=== PATIENT | female | born 1965 | race African-American/Black ===

== ENCOUNTER 2016-10-26 15:55 | Emergency (ER) | payer SELFPAY ==
[~2016-10-26] VITALS: Ht 167.6 cm; Wt 98.4 kg
[~2016-10-26 15:55] MED LIST: METF10002 PO; PROVENTIL HFA6.7 GM IH
[2016-10-26 16:20] VITALS: BP 164/71
[2016-10-26] MEDS ORDERED: INSU100I13 SQ (16:35)
[2016-10-26] MEDS ORDERED: INSU100I17 SQ (16:35)
--- NOTE | 2016-10-26 16:35 | PHYS DOC ---
Past Medical History Past Medical History: Asthma, Depression, Diabetes-Type II Additional Past Medical Histor: gestational diabetes, obesity Past Surgical History: Tonsillectomy, Other Additional Past Surgical Histo: x5 Alcohol Use: Rarely Drug Use: None Adult General Chief Complaint Chief Complaint: HYPERGLYCEMIA HPI HPI Patient is a 50 year old female who presents to the ED complaining that her blood sugar is running high because she has run out of insulin. Patient has type 2 diabetes. She was hospitalized in July for hyperglycemia related to medication noncompliance. Her regimen was changed to an insulin regimen that she was more comfortable with and she was written prescriptions. She has not had any follow-up since that time and now does not have any insulin because she is out of refills. She was supposed to be taking Lantus 20 units at bedtime and she has been out of that for 3 days, also supposed to be taking NovoLog 10 units twice a day with breakfast and dinner and has been out of that for longer than 3 days. She just got insurance as of October 05 and so now she does plan to get a primary care doctor and hopes to keep better control of her diabetes. She works as a [employer] and does get her blood sugar checked regularly at work. If she is doing everything she is supposed to do, her blood sugar runs in the 160s nonfasting. She has no history of hypertension. Patient states today she does not have any specific complaints. She feels a little tired but otherwise has no symptoms. She really is just here requesting prescriptions for insulin until she is able to follow up with a new doctor. PCP none Review of Systems Review of Systems Constitutional: Denies fever; she gets cold easily Eyes: Denies change in visual acuity, redness, or eye pain [] HENT: Denies nasal congestion or sore throat [] Respiratory: Denies cough or shortness of breath [] Cardiovascular: Denies chest pain GI: Denies abdominal pain, nausea, vomiting, bloody stools or diarrhea [] : Denies dysuria or hematuria [] Musculoskeletal: Denies back pain or joint pain [] Integument: Denies rash or skin lesions [] Neurologic: Denies headache, focal weakness or sensory changes [] Allergies Allergies Allergies Coded Allergies Type Severity Reaction Last Updated Verified oxycodone Adverse Reaction Intermediate 12/06/15 No Physical Exam Physical Exam Constitutional: Well developed, well nourished, no acute distress, non-toxic appearance. Alert, mentating normally. HENT: Normocephalic, atraumatic, bilateral external ears normal, oropharynx moist, no oral exudates, nose normal. [] Eyes: conjunctiva normal, no discharge. [] Neck: Normal range of motion, no stridor. [] Cardiovascular:Heart rate regular rhythm, no murmur [] Lungs & Thorax: Bilateral breath sounds clear to auscultation [] Abdomen: Bowel sounds normal, soft, no tenderness, no masses, no pulsatile masses. [] Skin: Warm, dry, no erythema, no rash. [] Extremities: No tenderness, no cyanosis, no clubbing, ROM intact, no edema. [] Neurologic: Alert and oriented X 3, normal motor function, normal sensory function, no focal deficits noted. [] Current Patient Data Vital Signs Vital Signs Date Time Temp Pulse Resp B/P Pulse Ox O2 Delivery O2 Flow Rate FiO2 10/26/16 16:20 98.6 74 18 164/71 99 Room Air 98.6 Lab Values Laboratory Tests Test 10/26/16 16:16 Glucose (Fingerstick) 237mg/dL (70-99) H EKG EKG [] Radiology/Procedures Radiology/Procedures [] Course & Med Decision Making Course & Med Decision Making Pertinent Labs and Imaging studies reviewed. (See chart for details) Accu-Chek on arrival by ED nursing staff 237 50-year-old female who has run out of her insulin because she has no more refills comes to the ED requesting a prescription for insulin. The patient just got insurance on October 05. I talked to her about the importance of getting a primary care doctor and following up and we discussed strategies for doing that. I emphasized to her that she will not get refills from the emergency department and our policy is not to provide any lengthy prescriptions but under the circumstances are give her 30 days so she can get some follow-up arrangements made. Prescriptions for the patient's Lantus and NovoLog for 30 day supply of each. She does have testing materials at home. [] Dragon Disclaimer Dragon Disclaimer This electronic medical record was generated, in whole or in part, using a voice recognition dictation system. Departure Departure Impression: Primary Impression: Hyperglycemia Additional Impression: Noncompliance with medications Disposition: HOME, SELF-CARE Condition: STABLE Referrals: NO PCP (PCP) Patient Instructions: Type 2 Diabetes Mellitus, Adult, [id number] Additional Instructions: As we discussed, it is very important to find a primary care physician who you can work with to manage your diabetes. Tomorrow, call the number on your insurance card or visit the website to find some doctors who take your insurance. Call to make a new patient appointment, and if needed, see if you can get in for a quick appointment before then so you do not ran out of insulin. Keep an eye on your blood pressure for the next 1-2 weeks. Today your blood pressure was a little bit high, 164/71. Tell your new doctor what your blood pressure has been running. Drink plenty of fluids. Make sure you are going to eat right after taking your insulin. Scripts Insulin Aspart (Novolog Flexpen)100 Unit/1 Ml Insuln.pen10 Unit SQ BID 30 Days 10 units prior to meals twice a day Please dispense 30 day supply Prov:EDGARDO MCKINNEY MD 10/26/16 Insulin Glargine,Hum.rec.anlog (Lantus Solostar)100 Unit/1 Ml Insuln.pen20 Unit SQ QHS #15 ML Ref 0 Prov:EDGARDO MCKINNEY MD 10/26/16 Problem Qualifiers EDGARDO MCKINNEY MD Oct 26, 2016 16:35
== END 2016-10-26 16:45 | disposition home or self-care (01) ==
LOC: ER 15:55
DX: E11.65 Type 2 diabetes mellitus with hyperglycemia (principal); Z79.4 Long term (current) use of insulin; F32.9 Major depressive disorder, single episode, unspecified; Z91.14 Patient's other noncompliance with medication regimen; J45.909 Unspecified asthma, uncomplicated; E66.9 Obesity, unspecified; Z68.30 Body mass index [BMI] 30.0-30.9, adult; Z88.5 Allergy status to narcotic agent
CPT/HCPCS: 82947; 99283

== ENCOUNTER 2017-01-07 07:02 | Inpatient (IN) | payer SELFPAY ==
[~2017-01-07] VITALS: Ht 175.3 cm; Wt 110.7 kg
[~2017-01-07 07:02] MED LIST changes: +INSU100I13 SQ; +INSU100I17 SQ
[2017-01-07] MEDS ORDERED: PSEUDOEPHEDRINE ER 120 MG TABLET.ER. PO ONE (07:30)
--- NOTE | 2017-01-07 07:42 | PHYS DOC ---
Past Medical History Past Medical History: Asthma, Depression, Diabetes-Type II Additional Past Medical Histor: gestational diabetes, obesity Past Surgical History: , Tonsillectomy, Other Additional Past Surgical Histo: x5 Alcohol Use: Rarely Drug Use: None Adult General Chief Complaint Chief Complaint: DENTAL PROBLEM HPI HPI Patient is a 51 year old female presents to the emergency department with a history of being an insulin diabetic and asthma. Patient states that around 245 this morning she developed severe headache that goes from the basal part of her left skull to the frontal part of her head with frontal and maxillary sinus pressure with left eye blurriness. She also states that she is having left jaw pain and discomfort into the ear with chest tightness. She stated that she took ibuprofen at 245 with no relief of the pain or discomfort. She denies any shortness of air difficulty breathing,nausea or vomiting. Review of Systems Review of Systems Constitutional: Denies fever or chills [] Eyes: Denies change in visual acuity, redness, or eye pain [] HENT: nasal congestion denies sore throat [] Respiratory: Denies cough or shortness of breath [] Cardiovascular: No additional information not addressed in HPI [] GI: Denies abdominal pain, nausea, vomiting, bloody stools or diarrhea [] : Denies dysuria or hematuria [] Musculoskeletal: Denies back pain or joint pain [] Integument: Denies rash or skin lesions [] Neurologic: headache, denies focal weakness or sensory changes [] Current Medications Current Medications Current Medications Medications (Trade) Dose Ordered Sig/Juan Start Time Stop Time Status Last Admin Dose Admin Aspirin (Children'S Aspirin) 324 mg 1X ONCE 01/07/17 08:00 01/07/17 08:01 DC 01/07/17 08:26 324 MG Morphine Sulfate 2 mg PRN Q2HR PRN 01/07/17 09:00 01/08/17 08:59 Nitroglycerin (Nitrostat) 0.4 mg PRN Q5MIN PRN 01/07/17 09:00 01/08/17 08:59 UNV Ondansetron HCl (Zofran) 4 mg PRN Q8HRS PRN 01/07/17 09:00 01/08/17 08:59 Pseudoephedrine HCl (Sudafed 12-Hour) 120 mg 1X ONCE 01/07/17 07:30 01/07/17 07:32 DC 01/07/17 08:27 120 MG Allergies Allergies Allergies Coded Allergies Type Severity Reaction Last Updated Verified oxycodone Adverse Reaction Intermediate 12/06/15 No Physical Exam Physical Exam Constitutional: Well developed, well nourished, no acute distress, non-toxic appearance. [] HENT: Normocephalic, atraumatic, bilateral external ears normal, oropharynx moist, no oral exudates, nose normal. Bilateral TM normal, throat without erythema, drainage or exudate. Patient with left frontal, left maxillary sinus tenderness. Eyes: PERRLA, EOMI, conjunctiva normal, no discharge. [] Neck: Normal range of motion, no tenderness, supple, no stridor. [] Cardiovascular:Heart rate regular rhythm, no murmur [] Lungs & Thorax: Bilateral breath sounds clear to auscultation [] Abdomen: Bowel sounds normal, soft, no tenderness, no masses, no pulsatile masses. [] Skin: Warm, dry, no erythema, no rash. [] Back: No tenderness Extremities: No tenderness, no cyanosis, no clubbing, ROM intact, no edema. [] Neurologic: Alert and oriented X 3, normal motor function, normal sensory function, no focal deficits noted. Patient with cranial nerve II-XII intact. Psychologic: Affect normal, judgement normal, mood normal. [] Current Patient Data Vital Signs Vital Signs Date Time Temp Pulse Resp B/P Pulse Ox O2 Delivery O2 Flow Rate FiO2 01/07/17 07:12 97.9 82 18 166/80 98 Room Air 97.9 Lab Values Laboratory Tests Test 01/07/17 08:00 White Blood Count 4.9x10^3/uL (4.0-11.0) Red Blood Count 4.68x10^6/uL (3.50-5.40) Hemoglobin 12.2g/dL (12.0-15.5) Hematocrit 37.1% (36.0-47.0) Mean Corpuscular Volume 79fL (79-100) Mean Corpuscular Hemoglobin 26pg (25-35) Mean Corpuscular Hemoglobin Concent 33g/dL (31-37) Red Cell Distribution Width 14.4% (11.5-14.5) Platelet Count 300x10^3/uL (140-400) Neutrophils (%) (Auto) 46% (31-73) Lymphocytes (%) (Auto) 45% (24-48) Monocytes (%) (Auto) 5% (0-9) Eosinophils (%) (Auto) 2% (0-3) Basophils (%) (Auto) 1% (0-3) Neutrophils # (Auto) 2.2x10^3uL (1.8-7.7) Lymphocytes # (Auto) 2.2x10^3/uL (1.0-4.8) Monocytes # (Auto) 0.2x10^3/uL (0.0-1.1) Eosinophils # (Auto) 0.1x10^3/uL (0.0-0.7) Basophils # (Auto) 0.0x10^3/uL (0.0-0.2) Sodium Level 139mmol/L (136-145) Potassium Level 4.1mmol/L (3.5-5.1) Chloride Level 103mmol/L (98-107) Carbon Dioxide Level 25mmol/L (21-32) Anion Gap 11 (6-14) Blood Urea Nitrogen 11mg/dL (7-20) Creatinine 0.9mg/dL (0.6-1.0) Estimated GFR (Cockcroft-Gault) 80.5 BUN/Creatinine Ratio 12 (6-20) Glucose Level 233mg/dL (70-99) H Calcium Level 8.7mg/dL (8.5-10.1) Total Bilirubin 0.3mg/dL (0.2-1.0) Aspartate Amino Transferase (AST) 17U/L (15-37) Alanine Aminotransferase (ALT) 25U/L (14-59) Alkaline Phosphatase 81U/L (46-116) Troponin I Quantitative < 0.017ng/mL (0.000-0.055) Total Protein 7.4g/dL (6.4-8.2) Albumin 3.3g/dL (3.4-5.0) L Albumin/Globulin Ratio 0.8 (1.0-1.7) L Laboratory Tests 01/07/17 08:00 Laboratory Tests 01/07/17 08:00 EKG EKG EKG completed with HR of 72 with T wave conversions in aVL. No STEMI noted at this time per Dr Lopez.[] Radiology/Procedures Radiology/Procedures [facility] [address] [place] [address] IMAGING REPORT Signed PATIENT: NILA GAINES ACCOUNT: [id number] : 1965 LOCATION: ER AGE: 51 SEX: F EXAM STATUS: REG ER ORD. PHYSICIAN: MILAN TALAMANTES APRN REASON: chest pressure PROCEDURE: PORTABLE CHEST 1V Portable chest, 01/07/2017: History: Chest pain Comparison is made to a study from 07/31/2016. The heart size and pulmonary vascularity are normal. No pulmonary infiltrates are seen. There is no evidence of pleural fluid. Mild spurring is present in the spine. IMPRESSION: No acute cardiopulmonary abnormality is detected. DICTATED and SIGNED BY: FRANCES HIGHTOWER MD DATE: 01/07/17 0753 CC: MILAN TALAMANTES APRN; NO PCP; NON,STAFF ~ [][facility] [id number] [place] [address] IMAGING REPORT Signed PATIENT: NILA GAINES ACCOUNT: [id number] : 1965 LOCATION: ER AGE: 51 SEX: F EXAM STATUS: REG ER ORD. PHYSICIAN: MILAN TALAMANTES APRN REASON: left sided headache, blurred vision left eye PROCEDURE: CT HEAD WO CONTRAST CT of the head without contrast, 01/07/2017: History: Left-sided headache, blurred vision Comparison is made to a study from 11/20/2013. The ventricles are within normal limits in size. There is a cavum septum pellucidum et vergae which is a normal variant. There is no shift of the midline structures. There is no evidence of acute intracranial hemorrhage or mass effect. IMPRESSION: No acute intracranial abnormality is detected. PQRS Compliance Statement: One or more of the following individualized dose reduction techniques were utilized for this examination: 1. Automated exposure control 2. Adjustment of the mA and/or kV according to patient size 3. Use of iterative reconstruction technique DICTATED and SIGNED BY: FRANCES HIGHTOWER MD DATE: 01/07/17 0800 CC: MILAN TALAMANTES APRN; NO PCP; NON,STAFF ~ Course & Med Decision Making Course & Med Decision Making Pertinent Labs and Imaging studies reviewed. (See chart for details) Patient was provided with aspirin and Sudafed here in the emergency department. 08:45 patient was reevaluated she states that her head headache has decreased and her chest pressure is still there. Patient will be provided with nitroglycerin spoke with patient regards to admission into the hospital for further cardiac evaluation. Call was placed to the hospitalist for admission. [phone] Llanes and cardiology in regards to patient admission. Patient will be placed on Telemetry with repeat troponins ordered. [] Dragon Disclaimer Dragon Disclaimer This electronic medical record was generated, in whole or in part, using a voice recognition dictation system. Departure Departure Impression: Primary Impression: Chest pain Additional Impression: Sinusitis Admitting Physician: Other (Dr Llanes and [facility] cardiology) Condition: STABLE Referrals: NO PCP (PCP) Problem Qualifiers MILAN TALAMANTES APRN Jan 07, 2017 07:42
--- NOTE | 2017-01-07 07:56 | RAD ---
Portable chest, 01/07/2017: History: Chest pain Comparison is made to a study from 07/31/2016. The heart size and pulmonary vascularity are normal. No pulmonary infiltrates are seen. There is no evidence of pleural fluid. Mild spurring is present in the spine. IMPRESSION: No acute cardiopulmonary abnormality is detected.
[2017-01-07] MEDS ORDERED: ASPIRIN CHEWABLE 81 MG TABLET. PO ONE (08:00)
--- NOTE | 2017-01-07 08:04 | RAD ---
CT of the head without contrast, 01/07/2017: History: Left-sided headache, blurred vision Comparison is made to a study from 11/20/2013. The ventricles are within normal limits in size. There is a cavum septum pellucidum et vergae which is a normal variant. There is no shift of the midline structures. There is no evidence of acute intracranial hemorrhage or mass effect. IMPRESSION: No acute intracranial abnormality is detected. PQRS Compliance Statement: One or more of the following individualized dose reduction techniques were utilized for this examination: 1. Automated exposure control 2. Adjustment of the mA and/or kV according to patient size 3. Use of iterative reconstruction technique
[2017-01-07 08:20] LABS: BASO % 1 % (0-3); EOS % 2 % (0-3); HEMATOCRIT 37.1 % (36.0-47.0); HEMOGLOBIN 12.2 g/dL (12.0-15.5); LYMPH # 2.2 x10^3/uL (1.0-4.8); LYMPH % 45 % (24-48); MEAN CORPUSCULAR HEMOGLOBIN 26 pg (25-35); MEAN CORPUSCULAR HGB CONC 33 g/dL (31-37); MEAN CORPUSCULAR VOLUME 79 fL (79-100); MONO % 5 % (0-9); NEUT % 46 % (31-73); PLATELET COUNT 300 x10^3/uL (140-400); RED BLOOD COUNT 4.68 x10^6/uL (3.50-5.40); RED CELL DISTRIBUTION WIDTH 14.4 % (11.5-14.5); WHITE BLOOD COUNT 4.9 x10^3/uL (4.0-11.0)
[2017-01-07 08:35] LABS: CALCIUM 8.7 mg/dL (8.5-10.1); CREATININE 0.9 mg/dL (0.6-1.0); GFR 80.5; POTASSIUM 4.1 mmol/L (3.5-5.1)
[2017-01-07 08:39] LABS: ALBUMIN 3.3 g/dL (3.4-5.0); ALBUMIN/GLOBULIN RATIO 0.8 (1.0-1.7); TOTAL BILIRUBIN 0.3 mg/dL (0.2-1.0); TOTAL PROTEIN 7.4 g/dL (6.4-8.2)
[2017-01-07] MEDS ORDERED: ONDANSETRON PF 4 MG/2 ML VIAL. IV PRN ×2 (08:59→09:00)
[2017-01-07] MEDS ORDERED: MORPHINE SULFATE 2 MG/ML DISP.SYRIN. IV PRN (09:00)
[2017-01-07] MEDS ORDERED: ACETAMINOPHEN 500 MG TABLET PO PRN (09:00)
[2017-01-07] MEDS ORDERED: DEXTROSE 50% 25 GM / 50ML DISP.SYRIN. IV PRN (09:00)
[2017-01-07] MEDS ORDERED: NAPROXEN 500 MG TABLET PO SCH (09:00)
[2017-01-07] MEDS ORDERED: HYDROCODONE/APAP 5/325MG TABLET. PO PRN (09:00)
[2017-01-07] MEDS ORDERED: NITROGLYCERIN SUBLINGUAL 0.4 MG BOTTLE OF 25. SL PRN ×2 (09:00)
[2017-01-07] MEDS ORDERED: CETIRIZINE HCL 10 MG TABLET. PO SCH (09:00)
[2017-01-07] MEDS: INSULIN ASPART 300 UNITS/3 ML INSULN.PEN SQ SCH ×2 (12:00→17:22)
--- NOTE | 2017-01-07 12:49 | PDOC ---
Provider Note Provider Note H and P dictated. OBS # [id number] CP r/o ACS Sinus headache Obesity Dm 2 non compliant - restart hoem emd, add Metformin 500 BID - can check hgba1c, cycel CE, H2 anatg for headache, NSAId prn, cards consult TIERNEY PERES MD Jan 07, 2017 12:49
[2017-01-07 12:54] VITALS: BP 154/72
[2017-01-07] MEDS ORDERED: NICOTINE 21MG PATCH. TD PRN (13:00)
--- NOTE | 2017-01-07 13:21 | HP ---
ADMIT DATE: 01/07/2017 CHIEF COMPLAINT: Chest tightness and headache. HISTORY OF PRESENT ILLNESS: The patient is a 51-year-old obese -[place] female with history of diabetes, noncompliance, supposed to be on insulin and also was recently taken out of metformin just because she was told that her sugars are high and insulin is the one that is needed, comes in because of headache and chest tightness. Chest tightness, she describes intermittent on the left side to midsternum, no radiation, no associated diaphoresis. No shortness of breath, no lightheadedness, dizziness or any other presyncopal symptoms. She does also complain of history of headache, left basal skull up to the frontal sinus area, claims she always has runny nose. No known drug allergies. The patient admitted because of troponin of less than 0.017. EKG of inverted T waves in AVL and also history of diabetes, which is noncompliant and rather uncontrolled. She does not know her hemoglobin A1c. She has not been taking her insulin. Blood sugars otherwise sounds like okay at the Emergency Room level. CT head negative. Chest x-ray looks okay. Lab work is otherwise unremarkable. PAST MEDICAL HISTORY: Diabetes type 2, on insulin; previously on metformin, taken off because was told blood sugars are too high for oral hypoglycemics. PAST SURGICAL HISTORY: Caesarian section. ALLERGIES: None. SOCIAL HISTORY: Smoker, less than a pack a day. No alcohol, no street drugs. FAMILY HISTORY: Adopted, so she does not know. REVIEW OF SYSTEMS: Positive for headache, sinus congestion, runny nose. Chest pain as above. No SOA. All else otherwise negative. PHYSICAL EXAMINATION: GENERAL: Awake, alert and oriented x 3, not in acute respiratory distress. HEENT: Unremarkable. LUNGS: Clear to auscultation bilaterally. CARDIOVASCULAR: Normal rate and rhythm. No murmurs, rubs or gallops. ABDOMEN: Soft, obese, nontender, normoactive bowel sounds. GENITALIA: Appropriate for age. EXTREMITIES: Negative edema. Pulses full and equal. No pallor or cyanosis of nailbeds. PSYCH and NEURO: UR ASSESSMENT AND PLAN: 1. Chest pain, rule out acute coronary syndrome. 2. Sinus headache. 3. Obesity. 4. Diabetes type 2, uncontrolled on insulin. PLAN OF CARE: 1. Sliding scale insulin, resume home meds. I did discuss with her restarting metformin because metformin is a rather cheap and good drug, and she does not have an insurance and this can still low her hemoglobin A1c and she agrees. She is not alcoholic, no history of kidney problems, creatinine is okay. Hence metformin would be a good drug for her. 2. Obesity. 3. EKG, inverted T-waves in AVL as per #1. 4. Restart insulin, check hemoglobin A1c, serial cardiac enzymes, consult Cardiology, lifestyle modification, restart metformin, seen at the Emergency Room. TIERNEY PERES MD DR: /nts JOB#: [id number] / [id number] KATHERYN
--- NOTE | 2017-01-07 15:17 | EKG ---
[facility] [address] [place] [address] Test Date: 2017-01-07 Test Time: 07:27:15 Pat Name: NILA GAINES Department: Room: Gender: F Icu Registered Nurse: : 1965 Requested By: MILAN TALAMANTES Order Number: [id number] Reading MD: Measurements Intervals [place] Rate: 72 P: 28 DC: 140 QRS: 9 QRSD: 76 T: 92 QT: 372 QTc: 409 Interpretive Statements SINUS RHYTHM T ABNORMALITY IN HIGH LATERAL LEADS ABNORMAL ECG RI6.01 No previous ECG available for comparison
--- NOTE | 2017-01-07 16:02 | CARD ---
APPROVED REPORT EXAM: Two-dimensional and M-mode echocardiogram with Doppler and color Doppler. Other Information Quality : GoodHR: 77bpm Rhythm : NSR INDICATION Chest Pain 2D DIMENSIONS RVDd3.2 (2.9-3.5cm)Left Atrium(2D)2.8 (1.6-4.0cm) IVSd0.8 (0.7-1.1cm)Aortic Root(2D)2.8 (2.0-3.7cm) LVDd4.6 (3.9-5.9cm)LVOT Diameter2.1 (1.8-2.4cm) PWd0.9 (0.7-1.1cm)LVDs3.2 (2.5-4.0cm) FS (%) 30.4 %SV55.1 ml LVEF(%)57.9 (>50%) Aortic Valve AoV Peak Carter.146.7cm/sAoV VTI29.4cm AO Peak GR.8.6mmHgLVOT Peak Carter.103.4cm/s LVOT VTI 23.31cmAO Mean GR.5mmHg KAROLYN (VMAX)2.96pz8MJV (VTI)2.77cm2 Mitral Valve MV E Wcyhxwop74.6cm/sMV DECEL SPDJ480yo MV A Wtkfcevs49.4cm/sMV E Mean Gr.2mmHg MV SAH29jkU/A Ratio1.0 MV A Wxefjqeb18lrKXV (PHT)4.47cm2 TDI E/Lateral E'9.6E/Medial E'14.6 Pulmonary Valve PV Peak Wfzqqrtt06.1cm/sPV Peak Grad.4mmHg RVOT VTI11.8cm Tricuspid Valve TR P. Rlwtrzua421fn/sRAP NUJONRBD0xgYq TR Peak Gr.78frWuNVSH39rhTw Pulmonary Vein S1 Obtpmbrc63.8cm/sD2 Nhvmrfju63.0cm/s PVa fgcpioxz70hqty LEFT VENTRICLE The left ventricle is normal size. There is normal left ventricular wall thickness. Left ventricle sy stolic function is normal. The Ejection Fraction is 55-60%. There is normal LV segmental wall motion. The left ventricular diastolic function and filling is normal for age. There is no ventricular septa l defect visualized. RIGHT VENTRICLE The right ventricle is normal size. The right ventricular systolic function is normal. ATRIA The left atrium size is normal. The right atrium size is normal. The interatrial septum is intact wit h no evidence for an atrial septal defect or patent foramen ovale as noted on 2-D or Doppler imaging. AORTIC VALVE The aortic valve is normal in structure and function. The aortic valve is trileaflet. Doppler and Col or Flow revealed no significant aortic regurgitation. There is no significant aortic valvular stenosi s. MITRAL VALVE The mitral valve is normal in structure and function. There is no evidence of mitral valve prolapse. There is no mitral valve stenosis. Doppler and Color Flow revealed trace mitral regurgitation. TRICUSPID VALVE The tricuspid valve is normal in structure. Doppler and Color Flow revealed mild tricuspid regurgitat ion.There is mild pulmonary hypertension.The PA pressure was estimated at 40 mmHg. There is no tricus pid valve stenosis. PULMONIC VALVE Doppler and Color Flow revealed no pulmonic valvular regurgitation. There is no pulmonic valvular oralia nosis. GREAT VESSELS The aortic root is normal in size. The ascending aorta is normal in size. The IVC is normal in size a nd collapses >50% with inspiration. PERICARDIAL EFFUSION There is no pleural effusion. There is no evidence of significant pericardial effusion. Critical Notification Critical Value: No <Conclusion> Left ventricle systolic function is normal. The Ejection Fraction is 55-60%. There is normal LV segmental wall motion. Doppler and Color Flow revealed mild tricuspid regurgitation.There is mild pulmonary hypertension.The PA pressure was estimated at 40 mmHg.
[2017-01-07] MEDS ORDERED: METF500T4 PO (16:36)
--- NOTE | 2017-01-07 16:39 | PDOC3 ---
Discharge Summary Visit Information Date of Admission: Jan 07, 2017 Date of Discharge: Jan 07, 2017 Admitting Diagnosis Comment: ASSESSMENT AND PLAN: 1. Chest pain, rule out acute coronary syndrome. 2. Sinus headache. 3. Obesity. 4. Diabetes type 2, uncontrolled on insulin. Final Diagnosis Problems Medical Problems: (1) Chest pain Status: Acute (2) Sinusitis Status: Acute Brief Hospital Course Allergies Allergies Coded Allergies Type Severity Reaction Last Updated Verified oxycodone Adverse Reaction Intermediate 12/06/15 No Vital Signs Vital Signs Date Time Temp Pulse Resp B/P Pulse Ox O2 Delivery O2 Flow Rate FiO2 01/07/17 15:29 16 Room Air 01/07/17 12:54 98.0 73 154/72 99 98.0 Lab Results Laboratory Tests Test 01/07/17 08:00 01/07/17 15:10 White Blood Count 4.9x10^3/uL (4.0-11.0) Red Blood Count 4.68x10^6/uL (3.50-5.40) Hemoglobin 12.2g/dL (12.0-15.5) Hematocrit 37.1% (36.0-47.0) Mean Corpuscular Volume 79fL (79-100) Mean Corpuscular Hemoglobin 26pg (25-35) Mean Corpuscular Hemoglobin Concent 33g/dL (31-37) Red Cell Distribution Width 14.4% (11.5-14.5) Platelet Count 300x10^3/uL (140-400) Neutrophils (%) (Auto) 46% (31-73) Lymphocytes (%) (Auto) 45% (24-48) Monocytes (%) (Auto) 5% (0-9) Eosinophils (%) (Auto) 2% (0-3) Basophils (%) (Auto) 1% (0-3) Neutrophils # (Auto) 2.2x10^3uL (1.8-7.7) Lymphocytes # (Auto) 2.2x10^3/uL (1.0-4.8) Monocytes # (Auto) 0.2x10^3/uL (0.0-1.1) Eosinophils # (Auto) 0.1x10^3/uL (0.0-0.7) Basophils # (Auto) 0.0x10^3/uL (0.0-0.2) Sodium Level 139mmol/L (136-145) Potassium Level 4.1mmol/L (3.5-5.1) Chloride Level 103mmol/L (98-107) Carbon Dioxide Level 25mmol/L (21-32) Anion Gap 11 (6-14) Blood Urea Nitrogen 11mg/dL (7-20) Creatinine 0.9mg/dL (0.6-1.0) Estimated GFR (Cockcroft-Gault) 80.5 BUN/Creatinine Ratio 12 (6-20) Glucose Level 233mg/dL (70-99) Calcium Level 8.7mg/dL (8.5-10.1) Total Bilirubin 0.3mg/dL (0.2-1.0) Aspartate Amino Transf (AST/SGOT) 17U/L (15-37) Alanine Aminotransferase (ALT/SGPT) 25U/L (14-59) Alkaline Phosphatase 81U/L (46-116) Troponin I Quantitative < 0.017ng/mL (0.000-0.055) < 0.017ng/mL (0.000-0.055) Total Protein 7.4g/dL (6.4-8.2) Albumin 3.3g/dL (3.4-5.0) Albumin/Globulin Ratio 0.8 (1.0-1.7) Laboratory Tests Test 01/07/17 08:00 01/07/17 15:10 White Blood Count 4.9x10^3/uL (4.0-11.0) Red Blood Count 4.68x10^6/uL (3.50-5.40) Hemoglobin 12.2g/dL (12.0-15.5) Hematocrit 37.1% (36.0-47.0) Mean Corpuscular Volume 79fL (79-100) Mean Corpuscular Hemoglobin 26pg (25-35) Mean Corpuscular Hemoglobin Concent 33g/dL (31-37) Red Cell Distribution Width 14.4% (11.5-14.5) Platelet Count 300x10^3/uL (140-400) Neutrophils (%) (Auto) 46% (31-73) Lymphocytes (%) (Auto) 45% (24-48) Monocytes (%) (Auto) 5% (0-9) Eosinophils (%) (Auto) 2% (0-3) Basophils (%) (Auto) 1% (0-3) Neutrophils # (Auto) 2.2x10^3uL (1.8-7.7) Lymphocytes # (Auto) 2.2x10^3/uL (1.0-4.8) Monocytes # (Auto) 0.2x10^3/uL (0.0-1.1) Eosinophils # (Auto) 0.1x10^3/uL (0.0-0.7) Basophils # (Auto) 0.0x10^3/uL (0.0-0.2) Sodium Level 139mmol/L (136-145) Potassium Level 4.1mmol/L (3.5-5.1) Chloride Level 103mmol/L (98-107) Carbon Dioxide Level 25mmol/L (21-32) Anion Gap 11 (6-14) Blood Urea Nitrogen 11mg/dL (7-20) Creatinine 0.9mg/dL (0.6-1.0) Estimated GFR (Cockcroft-Gault) 80.5 BUN/Creatinine Ratio 12 (6-20) Glucose Level 233mg/dL (70-99) Calcium Level 8.7mg/dL (8.5-10.1) Total Bilirubin 0.3mg/dL (0.2-1.0) Aspartate Amino Transf (AST/SGOT) 17U/L (15-37) Alanine Aminotransferase (ALT/SGPT) 25U/L (14-59) Alkaline Phosphatase 81U/L (46-116) Troponin I Quantitative < 0.017ng/mL (0.000-0.055) < 0.017ng/mL (0.000-0.055) Total Protein 7.4g/dL (6.4-8.2) Albumin 3.3g/dL (3.4-5.0) Albumin/Globulin Ratio 0.8 (1.0-1.7) Brief Hospital Course Ms. Escobedo is a 51 old obese AA female, admitted for CP, low risk, DM 2 on insulin, non complaint BS high, unknown hgba1c, Cleared from cards to go home, Emphasized compliance on DM meds. Hopefully she will comply, \Pt sen and examined at ER Dw RN Dw pt DispO; Home Meds: metformin 500 BID - no CI for this cheap drug which she can take more ( comply more ) rather than expensive insulin Consults: cards Proc: none Discharge Information Condition at Discharge: Improved, Stable Disposition/Orders: D/C to Home Scheduled Insulin Aspart (Novolog Flexpen) 10 UNIT SQ BID Insulin Glargine,Hum.rec.anlog (Lantus Solostar) 20 UNIT SQ QHS TIERNEY PERES MD Jan 07, 2017 16:39
[2017-01-07] MEDS ORDERED: METFORMIN 500 MG TABLET. PO SCH (17:00)
[2017-01-07] MEDS ORDERED: INSULIN ASPART 300 UNITS/3 ML INSULN.PEN SQ SCH (17:00)
--- NOTE | 2017-01-07 18:17 | PDOC ---
Provider Note Provider Note Pt. seen and examined. 51 y.o with diabetes. presenting with non-cardiac symptoms. Trop neg x 2. Given her dyspnea history, echo performed and this was normal. patient has our office info and if she has any significant issues will call and can consider outpt ischemic testing. thanks for consult. full note dictated. RENATA WOODALL MD Jan 07, 2017 18:17
[2017-01-07] MEDS ORDERED: INSULIN DETEMIR 300 UNITS/3 ML INSULN.PEN. SQ SCH (21:00)
--- NOTE | 2017-01-08 04:26 | CONS ---
DATE OF CONSULTATION: 01/07/2017 This is a Cardiology consultation. CHIEF COMPLAINT: Chest pain. HISTORY OF PRESENT ILLNESS: This is a 51-year-old -[place] female who awakened at approximately 2:00 a.m. today with pain in the left side of her face, then radiated to the back of her head. She subsequently developed a chest tightness in the center of her chest with radiation into the left arm as well as back into the left scapular region. She took ibuprofen at that time this occurred and went back to sleep and subsequently awakened with left eye blurriness. She then presented to the Emergency Room. On further questioning, she admits that she has had chest pain for approximately two months intermittently, but has not discussed this with her primary care provider. She does report being evaluated for similar pain last year with a stress test, which was reported as normal as well as an echocardiogram also reported as normal. At the time she had her symptoms last fall, her blood sugars were greater than 600. Pain this morning was simply described as a tightness and possibly associated with dizziness, but no other symptoms. Unfortunately, at this time, neither her labwork, chest x-ray nor EKG can be reviewed as the computer system is down. PAST MEDICAL HISTORY: Includes diabetes mellitus, remote history of seizure, asthma, frequent urinary tract infection, osteoarthritis in her hands, anxiety and depression. PAST SURGICAL HISTORY: Includes x SOCIAL HISTORY: Includes tobacco use of approximately half a pack per day of cigarettes, which has decreased recently. She previously smoked as much as 3 packs per day. Alcohol and illicit drug use is denied. FAMILY MEDICAL HISTORY: Positive for coronary artery disease, diabetes mellitus and peripheral vascular disease. REVIEW OF SYSTEMS: A 14-point review is completed with pertinent positives in the HPI. The patient also complains of recent allergic rhinitis and a possible near syncopal episode approximately 2 weeks ago. DIAGNOSTIC STUDIES: Unable to review. LABORATORY STUDIES: Unable to review. PHYSICAL EXAMINATION: VITAL SIGNS: Please refer to the computerized chart. GENERAL: Well-developed, well-nourished female in no acute distress or pain, lying in bed. CENTRAL NERVOUS SYSTEM: The patient is awake, alert and oriented, without focal neurological deficits noted, not walked for this examination. HEENT: Head is normocephalic, atraumatic. Pupils reactive to light. Tongue is midline. Mucosa moist. NECK: Supple. No jugular venous distention appreciated. No cervical adenopathy appreciated. The patient with a short neck. PULMONARY: Breath sounds clear to auscultation bilaterally without use of intercostal muscles present. CARDIOVASCULAR: S1, S2 are present. No S3 auscultated. No S4 auscultated. No carotid bruits auscultated. The pain is reproducible with palpation of the upper and mid sternum. ABDOMEN: Soft and nontender. Truncal obesity is present. SKIN: Warm, dry and intact. Affect is appropriate. EXTREMITIES: Distal pulses are palpable. No lower extremity edema present. IMPRESSION: 1. Chest pain, noncardiac, likely costochondritis. 2. Diabetes mellitus type 2, poorly controlled. 3. Asthma. 4. Remote history of seizures. PLAN: Pls see provider note. RENATA WOODALL MD DR: JERSEY/wolf JOB#: [id number] / [id number] KATHERYN
== END 2017-01-07 18:23 | disposition home or self-care (01) | DRG 206 ==
LOC: ER 07:02 → 2 NORTH 08:51
PROVIDERS: ADMIT Internal Medicine; ATTEND Internal Medicine
DX: M94.0 Chondrocostal junction syndrome [Tietze] (principal); R07.89 Other chest pain; E66.9 Obesity, unspecified; F17.210 Nicotine dependence, cigarettes, uncomplicated; J45.909 Unspecified asthma, uncomplicated; M19.041 Primary osteoarthritis, right hand; M19.042 Primary osteoarthritis, left hand; E11.65 Type 2 diabetes mellitus with hyperglycemia; J32.9 Chronic sinusitis, unspecified; F32.9 Major depressive disorder, single episode, unspecified; Z98.890 Other specified postprocedural states; Z79.4 Long term (current) use of insulin; Z86.32 Personal history of gestational diabetes; Z91.19 Patient's noncompliance with other medical treatment and regimen; Z82.49 Family history of ischemic heart disease and other diseases of the circulatory system; Z84.89 Family history of other specified conditions; R51 Headache
CPT/HCPCS: 36415; 36569; 70450; 71010; 80053; 82947; 83036; 84484; 85027; 93005; 93306; J1815; 99285-25

== ENCOUNTER 2017-06-10 12:27 | Emergency (ER) | payer BC ==
[~2017-06-10] VITALS: Ht 165.1 cm; Wt 103.9 kg
[~2017-06-10 12:27] MED LIST changes: +METF-620 PO; -METF10002 PO; +METF500T4 PO
[2017-06-10 13:20] VITALS: BP 181/72
[2017-06-10] MEDS ORDERED: AMOX500C PO (13:47)
--- NOTE | 2017-06-10 13:47 | PHYS DOC ---
Past Medical History Past Medical History: Asthma, Depression, Diabetes-Type II, Other Additional Past Medical Histor: gestational diabetes, obesity Past Surgical History: , Tonsillectomy, Other Additional Past Surgical Histo: x5 Alcohol Use: None Drug Use: None Adult General Chief Complaint Chief Complaint: DENTAL PROBLEM [facility] HPI Patient is a 51 year old female presents to the emergency department stating that she has having left maxillary sinus tenderness. She is also stating that she has having tenderness in the upper left dental areas. Patient states that she's had some nasal congestion as well. She denies fever, chills or any nausea or vomiting. She denies foul taste. Patient states she's been taken ibuprofen for the pain and discomfort with some relief noted. She states her last dose of ibuprofen was at 9:30 this morning. Patient's blood pressure is slightly elevated however her heart rate is normal. Review of Systems Review of Systems Constitutional: Denies fever or chills [] Eyes: Denies change in visual acuity, redness, or eye pain [] HENT: nasal congestion denies sore throat. Complaint of dental pain Respiratory: Denies cough or shortness of breath [] Cardiovascular: No additional information not addressed in HPI [] GI: Denies abdominal pain, nausea, vomiting, bloody stools or diarrhea [] : Denies dysuria or hematuria [] Musculoskeletal: Denies back pain or joint pain [] Integument: Denies rash or skin lesions [] Neurologic: Denies headache, focal weakness or sensory changes [] Endocrine: Denies polyuria or polydipsia [] Allergies Allergies Allergies Coded Allergies Type Severity Reaction Last Updated Verified oxycodone Adverse Reaction Intermediate 12/06/15 No Physical Exam Physical Exam Constitutional: Well developed, well nourished, no acute distress, non-toxic appearance. [] HENT: Normocephalic, atraumatic, bilateral external ears normal, oropharynx moist, no oral exudates, nose normal. Bilateral tympanic membranes appear to be normal however patient did have tenderness noted when observing the left tympanic membrane. Patient with left maxillary sinus tenderness noted. Patient with dental discomfort on the left upper areas. No dental abscess noted. Eyes: PERRLA, EOMI, conjunctiva normal, no discharge. [] Neck: Normal range of motion, no tenderness, supple, no stridor. [] Cardiovascular:Heart rate regular rhythm, no murmur [] Lungs & Thorax: Bilateral breath sounds clear to auscultation []. [] Skin: Warm, dry, no erythema, no rash. [] Back: No tenderness Extremities: No tenderness, no cyanosis, no clubbing, ROM intact, no edema. [] Neurologic: Alert and oriented X 3, normal motor function, normal sensory function, no focal deficits noted. [] Psychologic: Affect normal, judgement normal, mood normal. [] Current Patient Data Vital Signs Vital Signs Date Time Temp Pulse Resp B/P (MAP) Pulse Ox O2 Delivery O2 Flow Rate FiO2 06/10/17 13:20 98.1 90 16 99 Room Air 98.1 EKG EKG [] Radiology/Procedures Radiology/Procedures [] Course & Med Decision Making Course & Med Decision Making Pertinent Labs and Imaging studies reviewed. (See chart for details) Patient will be placed on amoxicillin 500 mg 1 tablet 4 times a day. Recommended following up with primary care physician in the next week. Also recommended to the patient to use nasal saline sprays to help with congestion. Also recommended Coricidin HBP for sinus congestion. Patient was also encouraged drink plenty of fluids. Patient will be discharged home in stable condition signs and symptoms to return back to emergency department as been provided. Patient agrees with discharge instructions treatment regimens and follow-up recommendations. All questions and concerns been answered at patient' s bedside. [] Dragon Disclaimer Dragon Disclaimer This electronic medical record was generated, in whole or in part, using a voice recognition dictation system. Departure Departure Impression: Primary Impression: Sinusitis Disposition: HOME, SELF-CARE Condition: STABLE Referrals: NO PCP (PCP) Patient Instructions: Sinusitis, [id number] Additional Instructions: Activity as tolerated. Coricidin BPH for sinus congestion. Tylenol or ibuprofen for fever chills or generalized body aches and discomfort. Drink plenty of fluids. Follow-up with a primary care physician in the next 5-7 days. Return back to emergency prior signs symptoms become worse. Scripts Amoxicillin (AMOXICILLIN) 500 Mg Capsule 1 CAP PO QID, #40 CAP Prov: MILAN TALAMANTES ACADEMIC COUNSELOR 06/10/17 Problem Qualifiers Primary Impression: Sinusitis Sinusitis location: maxillary Chronicity: acute Recurrence: recurrent Qualified Codes: J01.01 - Acute recurrent maxillary sinusitis MILAN TALAMANTES ACADEMIC COUNSELOR Jun 10, 2017 13:47
[2017-06-10] MEDS ORDERED: ACETAMINOPHEN 325 MG TABLET. PO ONE (14:00)
== END 2017-06-10 14:16 | disposition home or self-care (01) ==
LOC: ER 12:27
DX: J01.01 Acute recurrent maxillary sinusitis (principal); J45.909 Unspecified asthma, uncomplicated; F32.9 Major depressive disorder, single episode, unspecified; E11.9 Type 2 diabetes mellitus without complications; E66.9 Obesity, unspecified; Z88.5 Allergy status to narcotic agent; Z68.38 Body mass index [BMI] 38.0-38.9, adult
CPT/HCPCS: 99283

== ENCOUNTER 2017-07-02 00:54 | Inpatient (IN) | payer BC ==
[~2017-07-02] VITALS: Ht 167.6 cm; Wt 109.1 kg
[~2017-07-02 00:54] MED LIST changes: +AMOX500C PO
[2017-07-02 01:19] LABS: BASO % 1 % (0-3); EOS % 2 % (0-3); HEMATOCRIT 34.4 % (36.0-47.0); HEMOGLOBIN 11.6 g/dL (12.0-15.5); LYMPH # 2.2 x10^3/uL (1.0-4.8); LYMPH % 46 % (24-48); MEAN CORPUSCULAR HEMOGLOBIN 27 pg (25-35); MEAN CORPUSCULAR HGB CONC 34 g/dL (31-37); MEAN CORPUSCULAR VOLUME 80 fL (79-100); MONO % 5 % (0-9); NEUT % 46 % (31-73); PLATELET COUNT 273 x10^3/uL (140-400); RED BLOOD COUNT 4.29 x10^6/uL (3.50-5.40); RED CELL DISTRIBUTION WIDTH 13.9 % (11.5-14.5); WHITE BLOOD COUNT 4.9 x10^3/uL (4.0-11.0)
[2017-07-02 01:28] LABS: INR 0.9 (0.8-1.1)
[2017-07-02 01:32] LABS: CALCIUM 8.7 mg/dL (8.5-10.1); GFR 71.3; POTASSIUM 4.1 mmol/L (3.5-5.1)
[2017-07-02 01:37] LABS: MAGNESIUM 1.8 mg/dL (1.8-2.4)
[2017-07-02 01:45] LABS: CKMB MASS 1.6 ng/mL (0.0-3.6)
[2017-07-02] MEDS ORDERED: CONTRAST GIVEN MC PRN (02:15)
[2017-07-02] MEDS ORDERED: IOHEXOL 300 MG/ML 75 ML VIAL IV ONE (02:30)
[2017-07-02] MEDS ORDERED: ONDANSETRON PF 4 MG/2 ML VIAL. IV ONE (02:30)
[2017-07-02] MEDS ORDERED: MORPHINE SULFATE 2 MG/ML DISP.SYRIN. IV ONE (02:30)
--- NOTE | 2017-07-02 02:58 | RAD ---
INDICATION: left side chest pain, shortness of breath, abdomen pain COMPARISON: None. TECHNIQUE: Axial CT images were obtained through the chest, abdomen and pelvis with intravenous contrast. Three-dimensional images processed of chest per angiogram protocol. One or more of the following individualized dose reduction techniques were utilized for this examination: 1. Automated exposure control; 2. Adjustment of the mA and/or kV according to patient size; 3. Use of iterative reconstruction technique. FINDINGS: Chest: No evidence of pneumothorax. No focal airspace consolidation to suggest pneumonia. Calcific atherosclerosis without thoracic aortic aneurysm. Ascending thoracic aorta largely obscured by motion. No dissection flap in the visualized portions of the aorta. Coronary artery calcific atherosclerosis is identified. Degenerative changes of spine. No embolus in main, right main or left main pulmonary artery. Peripheral evaluation is very limited secondary to patient motion and contrast bolus timing. There are some prominent lymph nodes in the bilateral axilla which appear mildly enlarged measuring up to about 11 mm short axis. Abdomen and pelvis: Calcific atherosclerosis without abdominal aortic aneurysm. Low-attenuation throughout liver. No definite peripancreatic edema. Spleen unremarkable. No hydronephrosis. Bladder is partially distended. Uterus is visualized. Small fat-containing umbilical hernia. The suspected appendix is partially seen and does not appear grossly inflamed. No dilated loops of bowel to suggest obstruction. Degenerative changes spine. IMPRESSION: 1. No evidence of embolus in the main, right main or left main pulmonary artery. More peripheral evaluation is highly limited secondary to contrast bolus timing and motion. 2. No focal airspace consolidation to suggest pneumonia. 3. Coronary artery calcific atherosclerosis is identified. 4. No evidence of bowel obstruction or appendicitis. 5. Low attenuation of the liver. Nonspecific but frequently secondary to fatty infiltration. Electronically signed by: Luis A Perkins MD (07/02/2017 2:55 AM) [facility]
--- NOTE | 2017-07-02 03:04 | PHYS DOC ---
Past Medical History Past Medical History: Asthma, Depression, Diabetes-Type II, Other Additional Past Medical Histor: gestational diabetes, obesity Past Surgical History: , Tonsillectomy, Other Additional Past Surgical Histo: x5 Smoking: Cigarettes Alcohol Use: None Drug Use: None Adult General Chief Complaint Chief Complaint: CHEST PAIN HPI HPI Patient is a 51 year old female who presents with chest pain. She awakened at 0055 AM with chest pain. Chest pain is epigastric. Radiates more to the right side. She has diabetes mellitus but has been out of her medications 4 weeks. She is adopted unknown family history. She does continue to smoke tobacco. Unknown cholesterol status. This pain was severe. It is persistent. No nausea vomiting. Some shortness of air. No abdominal complaints. No leg pain or swelling. No travel. Review of Systems Review of Systems Constitutional: Denies fever or chills Eyes: Denies change in visual acuity, redness, or eye pain HENT: Denies nasal congestion or sore throat Respiratory: Denies cough; some shortness of breath Cardiovascular: POS chest pain. GI: Denies abdominal pain, nausea, vomiting, bloody stools or diarrhea : Denies dysuria or hematuria Musculoskeletal: Denies back pain or joint pain Integument: Denies rash or skin lesions Neurologic: Denies headache, focal weakness or sensory changes Current Medications Current Medications Current Medications Medications (Trade) Dose Ordered Sig/Juan Start Time Stop Time Status Last Admin Dose Admin Info (Do NOT chart on this entry -- for MONITORING) 1 each PRN DAILY PRN 07/02/17 02:15 07/04/17 02:14 Iohexol (Omnipaque 300 Mg/ml) 75 ml 1X ONCE 07/02/17 02:30 07/02/17 02:31 DC 07/02/17 02:14 75 ML Morphine Sulfate 2 mg 1X ONCE 07/02/17 02:30 07/02/17 02:31 DC 07/02/17 02:36 2 MG Ondansetron HCl (Zofran) 4 mg 1X ONCE 07/02/17 02:30 07/02/17 02:31 DC 07/02/17 02:35 4 MG Allergies Allergies Allergies Coded Allergies Type Severity Reaction Last Updated Verified oxycodone Adverse Reaction Intermediate 12/06/15 No Physical Exam Physical Exam Constitutional: Well developed, well nourished, obese female no acute distress, non-toxic appearance. HENT: Normocephalic, atraumatic, bilateral external ears normal, oropharynx moist, no oral exudates, nose normal. Eyes: PERRLA, EOMI, conjunctiva normal, no discharge. Neck: Normal range of motion, no tenderness, supple, no stridor. Cardiovascular:Heart rate regular rhythm, no murmur Lungs & Thorax: Bilateral breath sounds clear to auscultation Abdomen: Bowel sounds normal, soft, no tenderness, no masses, no pulsatile masses. Skin: Warm, dry, no erythema, no rash. Back: No tenderness, no CVA tenderness. Extremities: No tenderness, no cyanosis, no clubbing, ROM intact, no edema. Neurologic: Alert and oriented X 3, normal motor function, normal sensory function, no focal deficits noted. Psychologic: Affect normal, judgement normal, mood normal. Current Patient Data Vital Signs Vital Signs Date Time Temp Pulse Resp B/P (MAP) Pulse Ox O2 Delivery O2 Flow Rate FiO2 07/02/17 02:36 73 20 220/84 (129) 100 Room Air 07/02/17 00:59 98.7 98.7 Lab Values Laboratory Tests Test 07/02/17 01:10 White Blood Count 4.9 x10^3/uL (4.0-11.0) Red Blood Count 4.29 x10^6/uL (3.50-5.40) Hemoglobin 11.6 g/dL (12.0-15.5) L Hematocrit 34.4 % (36.0-47.0) L Mean Corpuscular Volume 80 fL (79-100) Mean Corpuscular Hemoglobin 27 pg (25-35) Mean Corpuscular Hemoglobin Concent 34 g/dL (31-37) Red Cell Distribution Width 13.9 % (11.5-14.5) Platelet Count 273 x10^3/uL (140-400) Neutrophils (%) (Auto) 46 % (31-73) Lymphocytes (%) (Auto) 46 % (24-48) Monocytes (%) (Auto) 5 % (0-9) Eosinophils (%) (Auto) 2 % (0-3) Basophils (%) (Auto) 1 % (0-3) Neutrophils # (Auto) 2.3 x10^3uL (1.8-7.7) Lymphocytes # (Auto) 2.2 x10^3/uL (1.0-4.8) Monocytes # (Auto) 0.3 x10^3/uL (0.0-1.1) Eosinophils # (Auto) 0.1 x10^3/uL (0.0-0.7) Basophils # (Auto) 0.0 x10^3/uL (0.0-0.2) Prothrombin Time 12.0 SEC (11.7-14.0) Prothrombin Time INR 0.9 (0.8-1.1) D-Dimer (Roseanne) 0.91 ug/mlFEU (0.00-0.50) H Sodium Level 136 mmol/L (136-145) Potassium Level 4.1 mmol/L (3.5-5.1) Chloride Level 99 mmol/L (98-107) Carbon Dioxide Level 28 mmol/L (21-32) Anion Gap 9 (6-14) Blood Urea Nitrogen 10 mg/dL (7-20) Creatinine 1.0 mg/dL (0.6-1.0) Estimated GFR (Cockcroft-Gault) 71.3 Glucose Level 382 mg/dL (70-99) H Calcium Level 8.7 mg/dL (8.5-10.1) Magnesium Level 1.8 mg/dL (1.8-2.4) Creatine Kinase 273 U/L (26-192) H Creatine Kinase MB (Mass) 1.6 ng/mL (0.0-3.6) Creatine Kinase MB Relative Index 0.6 % (0-4) Troponin I Quantitative < 0.017 ng/mL (0.000-0.055) CH-Wii-R-Type Natriuretic Peptide 51 pg/mL (0-124) Laboratory Tests 07/02/17 01:10 Laboratory Tests 07/02/17 01:10 EKG EKG EKG interpreted at 0101 AM: with NSR, rate [address] changes. Radiology/Procedures Radiology/Procedures CXR: Interpreted by myself with no acute infiltrate. [facility] [address] [place] [address] IMAGING REPORT Signed PATIENT: NILA GAINES ACCOUNT: [id number] : 1965 LOCATION: ER AGE: 51 SEX: F EXAM STATUS: REG ER ORD. PHYSICIAN: RIKA NESS MD REASON: ruq pain PROCEDURE: CT ABD PELV W/ IV CONTRST ONLY INDICATION: left side chest pain, shortness of breath, abdomen pain COMPARISON: None. TECHNIQUE: Axial CT images were obtained through the chest, abdomen and pelvis with intravenous contrast. Three-dimensional images processed of chest per angiogram protocol. One or more of the following individualized dose reduction techniques were utilized for this examination: 1. Automated exposure control; 2. Adjustment of the mA and/or kV according to patient size; 3. Use of iterative reconstruction technique. FINDINGS: Chest: No evidence of pneumothorax. No focal airspace consolidation to suggest pneumonia. Calcific atherosclerosis without thoracic aortic aneurysm. Ascending thoracic aorta largely obscured by motion. No dissection flap in the visualized portions of the aorta. Coronary artery calcific atherosclerosis is identified. Degenerative changes of spine. No embolus in main, right main or left main pulmonary artery. Peripheral evaluation is very limited secondary to patient motion and contrast bolus timing. There are some prominent lymph nodes in the bilateral axilla which appear mildly enlarged measuring up to about 11 mm short axis. Abdomen and pelvis: Calcific atherosclerosis without abdominal aortic aneurysm. Low-attenuation throughout liver. No definite peripancreatic edema. Spleen unremarkable. No hydronephrosis. Bladder is partially distended. Uterus is visualized. Small fat-containing umbilical hernia. The suspected appendix is partially seen and does not appear grossly inflamed. No dilated loops of bowel to suggest obstruction. Degenerative changes spine. IMPRESSION: 1. No evidence of embolus in the main, right main or left main pulmonary artery. More peripheral evaluation is highly limited secondary to contrast bolus timing and motion. 2. No focal airspace consolidation to suggest pneumonia. 3. Coronary artery calcific atherosclerosis is identified. 4. No evidence of bowel obstruction or appendicitis. 5. Low attenuation of the liver. Nonspecific but frequently secondary to fatty infiltration. Electronically signed by: Luis A Perkins MD (07/02/2017 2:55 AM) [facility] Course & Med Decision Making Course & Med Decision Making Evaluated patient upon arrival. EKG is non specific. She is non compliant. She has unknown cholesterol status. She has hypertension here but is non treated. She continues to smoke tobacco. Unknown FH (adopted). Differential diagnosis for chest pain includes but is not limited to: Pericarditis, myocarditis, endocarditis, pneumothorax, pneumonia, aortic dissection, esophageal spasm, esophagitis, peptic ulcer disease, acute coronary syndrome, mediastinitis, Boerhaave syndrome, musculoskeletal chest wall pain, costochondritis, intercostal strain, rib fracture, pulmonary contusion, pneumonitis, pleural effusion, pericardial effusion, pericardial tamponode, and pleurisy. Morphine IV; ASA dosed; Nitropaste, insulin. CT done with no PE (elev d dimer); no dissection noted. Abdominal CT negative (no gallstones). Admit for repeat evaluation. lipids this am. Needs assistance with meds as she is not able to get her meds. MACE Scoring: History: Highly suspicious (2 points); Moderately suspicious (1 point). Slightly suspicious (0 point). EKG: ST segment depression (2 points). Nonspecific repolarization disturbance ( 1 point). normal (0 point) Age: Greater than 65 (2 points), 65-45 (1 point); less than 45 years old (0 points). Risk factors:> 3 risk factors (2 points), 1-2 risk factors (one point), no risk factors (0 point). (DM; Tobacco use) Troponin: > 2 times normal (2 points), 1-2 times normal (1 point) normal limits (0 point) Total score: ___2___ Score % pts MACE/n MACE Policy 0-3: 32% 1.9% 0.05% Discharge 4-6: 51% 413/3136 13% 1.3% Observation Risk management 7-10: 17% 518/1045 50% 2.8% Observation Treatment, CAGb MADYSON score for NSTEMI: Age 65: No=0; Yes=1 3 CAD risk factors: Family history of CAD, hypertension, hypercholesterolemia, diabetes, family history of CAD, or current smoker: No=0; Yes=1 Known CAD (stenosis 50%: No=0; Yes=1 ASA use in past 7 days: No=0; Yes=1 Severe angina ( 2 episodes in 24 hrs): No=0; Yes=[address] changes 0.5m: No=0; Yes=1 Positive cardiac marker: No=0; Yes=1 Score:1 I have spoken with the patient and/or caregivers. I have explained the patient' s condition, diagnosis and treatment plan based on the information available to me at this time. I have answered the patient's and/or caregiver's questions and addressed any concerns. The patient and/or caregivers have as good an understanding of the patient's diagnosis, condition and treatment plan as can be expected at this point. The patient has been stabilized within the capability of the emergency department. The patient will be transported for further care and management or will be moved to an observation or inpatient service. I have communicated with the staff or medical practitioner taking over this patient's care. Dragon Disclaimer Dragon Disclaimer This electronic medical record was generated, in whole or in part, using a voice recognition dictation system. 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
[2017-07-02] MEDS ORDERED: ONDANSETRON PF 4 MG/2 ML VIAL. IV PRN ×2 (03:30→10:30)
[2017-07-02] MEDS ORDERED: MORPHINE SULFATE 2 MG/ML DISP.SYRIN. IV PRN (03:30)
[2017-07-02] MEDS ORDERED: INSULIN REGULAR 100 UNIT/ML 10ML VIAL. IV ONE (03:30)
[2017-07-02] MEDS ORDERED: ASPIRIN CHEWABLE 81 MG TABLET. PO ONE (03:30)
[2017-07-02] MEDS ORDERED: NITROGLYCERIN OINT 1 GM PACKET. TP ONE ×2 (03:30→04:00)
[2017-07-02 05:46] VITALS: BP 155/79
[2017-07-02 05:55] VITALS: BP 155/79
[2017-07-02 07:00] VITALS: BP 112/60
[2017-07-02] MEDS ORDERED: VENTOLIN HFA18 GM INH (07:01)
[2017-07-02] MEDS ORDERED: MULT-665 PO (07:02)
[2017-07-02] MEDS ORDERED: IBUP-1027 PO (07:03)
--- NOTE | 2017-07-02 07:19 | RAD ---
EXAM: Chest one view. HISTORY: Chest pain. COMPARISON: 01/07/2017. FINDINGS: A frontal view of the chest is obtained. There are no confluent infiltrates. There is no pneumothorax or pleural effusion. The heart is not enlarged. IMPRESSION: 1. No confluent infiltrates.
[2017-07-02] MEDS ORDERED: INSU100C4 SQ (07:30)
--- NOTE | 2017-07-02 07:48 | EKG ---
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 RI6.01 Unconfirmed report Compared to ECG 01/07/2017 07:27:15 T-wave abnormality now present Electronically Signed On 07-10-2017 16:29:27 CDT by Crispin Xiao
[2017-07-02] MEDS ORDERED: oxyCODONE/APAP 5/325 1 TAB TABLET PO PRN (10:30)
[2017-07-02] MEDS ORDERED: ACETAMINOPHEN 500 MG TABLET PO PRN (10:30)
[2017-07-02] MEDS ORDERED: DEXTROSE 50% 25 GM / 50ML DISP.SYRIN. IV PRN (10:30)
[2017-07-02] MEDS ORDERED: IBUPROFEN 400 MG TABLET. PO PRN (10:30)
--- NOTE | 2017-07-02 10:35 | PDOC1 ---
History and Physical Date of Admission Date of Admission DATE: 07/02/17 TIME: 10:26 Identification/Chief Complaint Chief Complaint midsternal CP Problems: Source Source: Caregiver, Chart review, Patient History of Present Illness History of Present Illness 51 y,.o heavy set AA female known to me from maybe 5-6 mos ago when I admitted her for similar issues, MPI was neg, She has DM non complaint with hgba`1c 10 in ,. Admits not seeing PCP, no refills not taking DM meds and BS maybe 300s at home, Also smokes a pack a day and fam hx CAD and its risk factors, No personal CAD hx though but high risk given lifestyle, habits and past medical BS breakfast 169 but has been NPO and is hungry,. Plan of care dw her, get cards, cycle CE, might need LHC given risk factors vs echo only as recent MPI was ok. COunselled on exercise, lose weight, med compliance etc. She describes the chest pain as midsternal,. heavy like someone sitting on her chest, no diaphoresis, lasted hrs, WOKE her up from sleep, no radiation, better with IV morphine. Past Medical History Cardiovascular: No pertinent hx Pulmonary: Asthma CENTRAL NERVOUS SYSTEM: Other GI: No pertinent hx Heme/Onc: No pertinent hx Hepatobiliary: No pertinent hx Psych: Anxiety, Depression, Other Musculoskeletal: Other Rheumatologic: No pertinent hx Infectious disease: No pertinent hx Renal/: UTI Endocrine: Diabetes Past Surgical History Past Surgical History: , Tonsillectomy Family History Family History: High Cholestrol, Hypertension Social History Smoke: 1 pack per day ALCOHOL: none Drugs: None Current Problem List Problem List Problems Medical Problems: (1) Chest pain Status: Acute (2) Diabetes mellitus Status: Acute (3) Elevated blood pressure reading Status: Acute (4) Noncompliance with medications Status: Acute Problems: Current Medications Current Medications Current Medications Morphine Sulfate 2 mg 1X ONCE IV Last administered on 07/02/17 02:36; Start 07/02/17 at 02:30; Stop 07/02/17 at 02:31; Status DC Ondansetron HCl (Zofran) 4 mg 1X ONCE IV Last administered on 07/02/17 02:35 ; Start 07/02/17 at 02:30; Stop 07/02/17 at 02:31; Status DC Iohexol (Omnipaque 300 Mg/ml) 75 ml 1X ONCE IV Last administered on 07/02/17 02:14; Start 07/02/17 at 02:30; Stop 07/02/17 at 02:31; Status DC Info (Do NOT chart on this entry -- for MONITORING) 1 each PRN DAILY PRN MC SEE COMMENTS; Start 07/02/17 at 02:15; Stop 07/04/17 at 02:14 Insulin Human Regular (NovoLIN R VIAL) 10 unit 1X ONCE IV Last administered on 07/02/17 03:35; Start 07/02/17 at 03:30; Stop 07/02/17 at 03:31; Status DC Nitroglycerin (Nitro-Bid Oint) 1 inch 1X ONCE TP Last administered on 03:36; Start 07/02/17 at 03:30; Stop 07/02/17 at 03:31; Status DC Aspirin (Children'S Aspirin) 324 mg 1X ONCE PO Last administered on 07/02/17 03:36; Start 07/02/17 at 03:30; Stop 07/02/17 at 03:31; Status DC Ondansetron HCl (Zofran) 4 mg PRN Q8HRS PRN IV NAUSEA/VOMITING; Start 07/02/17 at 03:30; Stop 07/03/17 at 03:29 Morphine Sulfate 2 mg PRN Q2HR PRN IV SEVERE PAIN; Start 07/02/17 at 03:30; Stop 07/03/17 at 03:29 Nitroglycerin (Nitro-Bid Oint) 1 inch 1X ONCE TP Last administered on 04:00; Start 07/02/17 at 04:00; Stop 07/02/17 at 04:01; Status DC Active Scripts Active Lantus Solostar (Insulin Glargine,Hum.rec.anlog) 100 Unit/1 Ml Insuln.pen 20 Unit SQ QHS Reported Novolog (Insulin Aspart) 100 Unit/1 Ml Cartridge 10 Unit SQ BIDWBKFT/GAUTAM Ibuprofen 400 Mg Tablet 400 Mg PO PRN Q6HRS PRN Women's Daily Formula Caplet (Multivits,Ca,Minerals/Iron/FA) 1 Each Tablet 1 Each PO Ventolin Hfa Inhaler (Albuterol Sulfate) 18 Gm Hfa.aer.ad 2 Puff INH QID Allergies Allergies: Coded Allergies: chocolate flavor (Verified Allergy, Intermediate, Hives, 07/02/17) lavender (Lavandula angustifolia) (Verified Allergy, Intermediate, Hives, 07/02/17) oxycodone (Unverified Adverse Reaction, Intermediate, 12/06/15) " NAUSEA, VOMITING, LIGHTHEADED" ROS Review of System chest apin per HPI, all else is neg Physical Exam General: Alert, Oriented X3, Cooperative, No acute distress HEENT: Atraumatic, PERRLA, EOMI Lungs: Clear to auscultation, Normal air movement Heart: S1S2, RRR, no thrills, no rubs, no gallops, no murmurs Cardiovascular: S1, S2 Breasts: Normal, Rt breast nml w/o mass, Lt breast nml w/o mass, Nipples normal Abdomen: Normal bowel sounds, Soft, No tenderness, No hepatosplenomegaly, No masses Rectal Exam: not examined PELVIC: Nml ext genitalia Extremities: No clubbing, No cyanosis, No edema, Normal pulses, No tenderness/ swelling Skin: No rashes, No breakdown, No significant lesion Neuro: Normal gait, Normal speech, Strength at 5/5 X4 ext, Normal tone, Sensation intact, Cranial nerves 3-12 NL, Reflexes 2+ Psych/Mental Status: Mental status NL, Mood NL Vitals Vitals Vital Signs Date Time Temp Pulse Resp B/P (MAP) Pulse Ox O2 Delivery O2 Flow Rate FiO2 07/02/17 07:00 97.8 74 18 112/60 (77) 100 Room Air 97.8 Labs Labs Laboratory Tests Test 07/02/17 01:10 07/02/17 04:40 07/02/17 07:50 07/02/17 08:28 White Blood Count 4.9 x10^3/uL (4.0-11.0) Red Blood Count 4.29 x10^6/uL (3.50-5.40) Hemoglobin 11.6 g/dL (12.0-15.5) Hematocrit 34.4 % (36.0-47.0) Mean Corpuscular Volume 80 fL (79-100) Mean Corpuscular Hemoglobin 27 pg (25-35) Mean Corpuscular Hemoglobin Concent 34 g/dL (31-37) Red Cell Distribution Width 13.9 % (11.5-14.5) Platelet Count 273 x10^3/uL (140-400) Neutrophils (%) (Auto) 46 % (31-73) Lymphocytes (%) (Auto) 46 % (24-48) Monocytes (%) (Auto) 5 % (0-9) Eosinophils (%) (Auto) 2 % (0-3) Basophils (%) (Auto) 1 % (0-3) Neutrophils # (Auto) 2.3 x10^3uL (1.8-7.7) Lymphocytes # (Auto) 2.2 x10^3/uL (1.0-4.8) Monocytes # (Auto) 0.3 x10^3/uL (0.0-1.1) Eosinophils # (Auto) 0.1 x10^3/uL (0.0-0.7) Basophils # (Auto) 0.0 x10^3/uL (0.0-0.2) Prothrombin Time 12.0 SEC (11.7-14.0) Prothromb Time International Ratio 0.9 (0.8-1.1) D-Dimer (Roseanne) 0.91 ug/mlFEU (0.00-0.50) Sodium Level 136 mmol/L (136-145) Potassium Level 4.1 mmol/L (3.5-5.1) Chloride Level 99 mmol/L (98-107) Carbon Dioxide Level 28 mmol/L (21-32) Anion Gap 9 (6-14) Blood Urea Nitrogen 10 mg/dL (7-20) Creatinine 1.0 mg/dL (0.6-1.0) Estimated GFR (Cockcroft-Gault) 71.3 Glucose Level 382 mg/dL (70-99) Calcium Level 8.7 mg/dL (8.5-10.1) Magnesium Level 1.8 mg/dL (1.8-2.4) Creatine Kinase 273 U/L (26-192) Creatine Kinase MB (Mass) 1.6 ng/mL (0.0-3.6) Creatine Kinase MB Relative Index 0.6 % (0-4) Troponin I Quantitative < 0.017 ng/mL (0.000-0.055) < 0.017 ng/mL (0.000-0.055) < 0.017 ng/mL (0.000-0.055) SS-Dmz-H-Type Natriuretic Peptide 51 pg/mL (0-124) Triglycerides Level 121 mg/dL (0-150) Cholesterol Level 203 mg/dL (0-200) LDL Cholesterol, Calculated 128 mg/dL (0-100) VLDL Cholesterol, Calculated 24 mg/dL (0-40) Non-HDL Cholesterol Calculated 152 mg/dL (0-129) HDL Cholesterol 51 mg/dL (40-60) Cholesterol/HDL Ratio 4.0 Glucose (Fingerstick) 169 mg/dL (70-99) Laboratory Tests Test 07/02/17 01:10 07/02/17 04:40 07/02/17 07:50 07/02/17 08:28 White Blood Count 4.9 x10^3/uL (4.0-11.0) Red Blood Count 4.29 x10^6/uL (3.50-5.40) Hemoglobin 11.6 g/dL (12.0-15.5) Hematocrit 34.4 % (36.0-47.0) Mean Corpuscular Volume 80 fL (79-100) Mean Corpuscular Hemoglobin 27 pg (25-35) Mean Corpuscular Hemoglobin Concent 34 g/dL (31-37) Red Cell Distribution Width 13.9 % (11.5-14.5) Platelet Count 273 x10^3/uL (140-400) Neutrophils (%) (Auto) 46 % (31-73) Lymphocytes (%) (Auto) 46 % (24-48) Monocytes (%) (Auto) 5 % (0-9) Eosinophils (%) (Auto) 2 % (0-3) Basophils (%) (Auto) 1 % (0-3) Neutrophils # (Auto) 2.3 x10^3uL (1.8-7.7) Lymphocytes # (Auto) 2.2 x10^3/uL (1.0-4.8) Monocytes # (Auto) 0.3 x10^3/uL (0.0-1.1) Eosinophils # (Auto) 0.1 x10^3/uL (0.0-0.7) Basophils # (Auto) 0.0 x10^3/uL (0.0-0.2) Prothrombin Time 12.0 SEC (11.7-14.0) Prothromb Time International Ratio 0.9 (0.8-1.1) D-Dimer (Roseanne) 0.91 ug/mlFEU (0.00-0.50) Sodium Level 136 mmol/L (136-145) Potassium Level 4.1 mmol/L (3.5-5.1) Chloride Level 99 mmol/L (98-107) Carbon Dioxide Level 28 mmol/L (21-32) Anion Gap 9 (6-14) Blood Urea Nitrogen 10 mg/dL (7-20) Creatinine 1.0 mg/dL (0.6-1.0) Estimated GFR (Cockcroft-Gault) 71.3 Glucose Level 382 mg/dL (70-99) Calcium Level 8.7 mg/dL (8.5-10.1) Magnesium Level 1.8 mg/dL (1.8-2.4) Creatine Kinase 273 U/L (26-192) Creatine Kinase MB (Mass) 1.6 ng/mL (0.0-3.6) Creatine Kinase MB Relative Index 0.6 % (0-4) Troponin I Quantitative < 0.017 ng/mL (0.000-0.055) < 0.017 ng/mL (0.000-0.055) < 0.017 ng/mL (0.000-0.055) PB-Xcy-J-Type Natriuretic Peptide 51 pg/mL (0-124) Triglycerides Level 121 mg/dL (0-150) Cholesterol Level 203 mg/dL (0-200) LDL Cholesterol, Calculated 128 mg/dL (0-100) VLDL Cholesterol, Calculated 24 mg/dL (0-40) Non-HDL Cholesterol Calculated 152 mg/dL (0-129) HDL Cholesterol 51 mg/dL (40-60) Cholesterol/HDL Ratio 4.0 Glucose (Fingerstick) 169 mg/dL (70-99) VTE Prophylaxis Ordered VTE Prophylaxis Devices: Yes VTE Pharmacological Prophylaxi: Yes Assessment/Plan Assessment/Plan 1. Chest pain, atypical in an adult, at rest - initial encounter 2. DM 2 hgba1c in January 2017 was 10, VERY POOR compliance 3. HTN 4. Obesity, BMI 38, sedentary lifestyle, - METABOLIC SYNDROME 5. SMOKER - A PACK A DAY PLAN: admit 2 MN Cycle CE Cards consult REcheck hgba1c and lipids NIcotine patch ADA diet SSI high dose COunselled, heavy TIERNEY PERES MD Jul 02, 2017 10:34
[2017-07-02 11:00] VITALS: BP 140/67
[2017-07-02] MEDS ORDERED: REGADENOSON 0.4 MG/5 ML DISP.SYRIN. IV ONE (11:00)
[2017-07-02] MEDS ORDERED: INSULIN ASPART 300 UNITS/3 ML INSULN.PEN SQ SCH ×2 (12:00)
--- NOTE | 2017-07-02 12:26 | PDOC2 ---
CARDIAC CONSULT DATE OF CONSULT Date of Consult DATE: 07/02/17 TIME: 12:13 REASON FOR CONSULT Reason for Consult: CP REFERRING PHYSICIAN Referring Physician: Mario Alberto SOURCE Source: Chart review, Patient HISTORY OF PRESENT ILLNESS HISTORY OF PRESENT ILLNESS This is a pleasant 51 yo female admitted for complains of chest pain, abdominal pain and nausea. Reports that she woke up about midnight last night with nausea , epigastric tenderness with burning sensation which then progressed to mid chest pressure that radiated to right chest. Also felt some palpitations and SOA otherwise no diaphoresis, dizziness and no vomiting. No shoulder, jaw or arm pain. Denies any recent falls or injury. She does not take any GERD medications and at times take ASA and ibuprofen. She has been skipping her regular medications. Presently her epigastric region is only painful when pressed on. Prior to today, she has not been having any CP, VALDEZ. PAST MEDICAL HISTORY Past Medical History Cardiovascular: No pertinent hx Pulmonary: Asthma CENTRAL NERVOUS SYSTEM: Other (No pertinent history) GI: No pertinent hx Heme/Onc: No pertinent hx Hepatobiliary: No pertinent hx Psych: Anxiety, Depression, Other (suicidal ideation) Musculoskeletal: Other (morbid obesity) Rheumatologic: No pertinent hx Infectious disease: No pertinent hx ENT: No pertinent hx Renal/: UTI Endocrine: Diabetes (2) Dermatology: No pertinent hx PAST SURGICAL HISTORY Past Surgical History: (x5), Tonsillectomy FAMILY HISTORY Family History noncontributory, adopted SOCIAL HISTORY Smoke: <1 pack per day ALCOHOL: none Drugs: None Lives: with Family CURRENT MEDICATIONS CURRENT MEDICATIONS Current Medications Medications (Trade) Dose Ordered Sig/Juan Route PRN Reason Start Time Stop Time Status Last Admin Dose Admin Morphine Sulfate 2 mg 1X ONCE IV 07/02/17 02:30 07/02/17 02:31 DC 07/02/17 02:36 Ondansetron HCl (Zofran) 4 mg 1X ONCE IV 07/02/17 02:30 07/02/17 02:31 DC 07/02/17 02:35 Iohexol (Omnipaque 300 Mg/ml) 75 ml 1X ONCE IV 07/02/17 02:30 07/02/17 02:31 DC 07/02/17 02:14 Insulin Human Regular (NovoLIN R VIAL) 10 unit 1X ONCE IV 07/02/17 03:30 07/02/17 03:31 DC 07/02/17 03:35 Nitroglycerin (Nitro-Bid Oint) 1 inch 1X ONCE TP 07/02/17 03:30 07/02/17 03:31 DC 07/02/17 03:36 Aspirin (Children'S Aspirin) 324 mg 1X ONCE PO 07/02/17 03:30 07/02/17 03:31 DC 07/02/17 03:36 Nitroglycerin (Nitro-Bid Oint) 1 inch 1X ONCE TP 07/02/17 04:00 07/02/17 04:01 DC 07/02/17 04:00 Regadenoson (Lexiscan) 0.4 mg 1X ONCE IV 07/02/17 11:00 07/02/17 11:03 DC 07/02/17 11:00 ALLERGIES ALLERGIES: Coded Allergies: chocolate flavor (Verified Allergy, Intermediate, Hives, 07/02/17) lavender (Lavandula angustifolia) (Verified Allergy, Intermediate, Hives, 07/02/17) oxycodone (Unverified Adverse Reaction, Intermediate, 12/06/15) " NAUSEA, VOMITING, LIGHTHEADED" ROS Review of System 14 point ROS evaluated with pertinent positives noted per HPI PHYSICAL EXAM General: Alert, Oriented X3, Cooperative, No acute distress HEENT: Atraumatic, Mucous membr. moist/pink Lungs: Clear to auscultation, Normal air movement Heart: Regular rate (SR), Normal S1, Normal S2, Other (3/6 ssytolic murmur to LLS border) Abdomen: Soft, Other (epigastric tenderness with palpation) Extremities: No cyanosis, No edema Skin: No breakdown, No significant lesion Neuro: Normal speech, Sensation intact Psych/Mental Status: Mental status NL, Mood NL MUSCULOSKELETAL: Osteoarthritic changes both hands VITALS VITALS Vital Signs Date Time Temp Pulse Resp B/P (MAP) Pulse Ox O2 Delivery O2 Flow Rate FiO2 07/02/17 11:00 98.0 69 18 140/67 (91) 100 Room Air 98.0 LABS Lab: Laboratory Tests Test 07/02/17 01:10 07/02/17 04:40 07/02/17 07:50 07/02/17 08:28 White Blood Count 4.9 x10^3/uL (4.0-11.0) Red Blood Count 4.29 x10^6/uL (3.50-5.40) Hemoglobin 11.6 g/dL (12.0-15.5) Hematocrit 34.4 % (36.0-47.0) Mean Corpuscular Volume 80 fL (79-100) Mean Corpuscular Hemoglobin 27 pg (25-35) Mean Corpuscular Hemoglobin Concent 34 g/dL (31-37) Red Cell Distribution Width 13.9 % (11.5-14.5) Platelet Count 273 x10^3/uL (140-400) Neutrophils (%) (Auto) 46 % (31-73) Lymphocytes (%) (Auto) 46 % (24-48) Monocytes (%) (Auto) 5 % (0-9) Eosinophils (%) (Auto) 2 % (0-3) Basophils (%) (Auto) 1 % (0-3) Neutrophils # (Auto) 2.3 x10^3uL (1.8-7.7) Lymphocytes # (Auto) 2.2 x10^3/uL (1.0-4.8) Monocytes # (Auto) 0.3 x10^3/uL (0.0-1.1) Eosinophils # (Auto) 0.1 x10^3/uL (0.0-0.7) Basophils # (Auto) 0.0 x10^3/uL (0.0-0.2) Prothrombin Time 12.0 SEC (11.7-14.0) Prothromb Time International Ratio 0.9 (0.8-1.1) D-Dimer (Roseanne) 0.91 ug/mlFEU (0.00-0.50) Sodium Level 136 mmol/L (136-145) Potassium Level 4.1 mmol/L (3.5-5.1) Chloride Level 99 mmol/L (98-107) Carbon Dioxide Level 28 mmol/L (21-32) Anion Gap 9 (6-14) Blood Urea Nitrogen 10 mg/dL (7-20) Creatinine 1.0 mg/dL (0.6-1.0) Estimated GFR (Cockcroft-Gault) 71.3 Glucose Level 382 mg/dL (70-99) Calcium Level 8.7 mg/dL (8.5-10.1) Magnesium Level 1.8 mg/dL (1.8-2.4) Creatine Kinase 273 U/L (26-192) Creatine Kinase MB (Mass) 1.6 ng/mL (0.0-3.6) Creatine Kinase MB Relative Index 0.6 % (0-4) Troponin I Quantitative < 0.017 ng/mL (0.000-0.055) < 0.017 ng/mL (0.000-0.055) < 0.017 ng/mL (0.000-0.055) LB-Mlk-Y-Type Natriuretic Peptide 51 pg/mL (0-124) Triglycerides Level 121 mg/dL (0-150) Cholesterol Level 203 mg/dL (0-200) LDL Cholesterol, Calculated 128 mg/dL (0-100) VLDL Cholesterol, Calculated 24 mg/dL (0-40) Non-HDL Cholesterol Calculated 152 mg/dL (0-129) HDL Cholesterol 51 mg/dL (40-60) Cholesterol/HDL Ratio 4.0 Glucose (Fingerstick) 169 mg/dL (70-99) ECHOCARDIOGRAM ECHOCARDIOGRAM <Conclusion> Left ventricle systolic function is normal. The Ejection Fraction is 55-60%. There is normal LV segmental wall motion. Doppler and Color Flow revealed mild tricuspid regurgitation.There is mild pulmonary hypertension.The PA pressure was estimated at 40 mmHg. DATE: 01/07/17 1602 STRESS TEST STRESS TEST Conclusion 1. Limited exercise tolerance with the patient reaching 81% of predicted heart rate. 2. The patient walked for 4 minutes and 35 seconds on a Tony protocol. No chest pain at this level of exertion. 3. No ischemic EKG changes at this level of exertion. 4. Patient did not wish to proceed to a Lexiscan nuclear stress test. 5. No EKG evidence of exercised induced ischemia at 81% of predicted heart rate. 6. However, secondary to being unable to reach 85% of predicted heart rate this would be considered a nondiagnostic test. DATE: 08/03/16 1408 ASSESSMENT/PLAN ASSESSMENT/PLAN 1. Atypical Chest pain: troponin series normal, EKG SR without acute changes. Likely GERD exacerbation 2. DM2: uncontrolled BG 3. Tobaccoism 4. Morbid obesity: BMI 38 5. Noncompliance: admitted skipping her routine medications 6. Hx of anxiety/depression and past suicidal ideation (noted 01/2016) 7. Moderate pulmonary HTN; suspecting undiagnosed RUPERTO. Recommendations 1. MPI pending 2. Start on PPI, ECASA 81 mg daily. Consider restarting low dose ACEi per past home med. 3. Smoking cessation, wt loss, discussed treatment compliance. Problems: BOBY LUNA APRN Jul 02, 2017 12:26
[2017-07-02] MEDS: ALBUTEROL SULFATE 2.5 MG/3 ML NEBU. NEB SCH ×2 (12:29→16:00)
[2017-07-02] MEDS ORDERED: NON FORMULARY ITEM (Albuterol Sulfate (Ventolin Hfa Inhaler) 2 PUFF) INH SCH (13:00)
[2017-07-02] MEDS ORDERED: ASPIRIN ENTERIC COATED 81 MG TABLET.DR. PO SCH (14:00)
--- NOTE | 2017-07-02 14:06 | RAD ---
APPROVED REPORT Test Type: Pharmacological Stress Nurse/Tech: narendra davies Test Indications: chest pain Cardiac History: none stated, see EHR Medications: see EHR Medical History: smoker, diabetes, see EHR Resting ECG: SR Resting Heart Rate: 93 bpm Resting Blood Pressure: 137/87mmHg Pretest Chest Pain: No chest pain Nurse/Tech Notes lung sounds clear, s1s2 wnl. PT WITH ANXIETY, EDUCATED AND COMFORTED PT THROUGHOUT THE TEST. Consent: The procedure was explained to the patient in lay terms. Informed consent was witnessed. Silver eout was entered into [facility]. History and Stress Test performed by RT Abimbola Rodriguez) (N) Pharm. Details Pharmacologic stress testing was performed using 0.4mg per 5ml of regadenoson given intravenously ove r 7-10 seconds. Stress Symptoms HEADACHE POST EXERCISE Reason for Termination: Infusion complete Max HR: 120 bpm Max Blood Pressure: 146/67mmHg Chest Pain: No. Arrhythmia: No. ST Change: No. INTERPRETATION Stress EKG Conclusion: The resting EKG showed a sinus rhythm with mild nonspecific ST segment changes . The stress EKG showed no significant changes from baseline. No EKG evidence of stress-induced ischemia. Imaging Protocol IMAGE PROTOCOL: Stress Tc-99m/rest Tc-99m 2 days Rest: Stress: Viability: Radiopharm.Tc99m Sestamibi [id number] Img Date 07/02/2017 Inj-Img [id number]. Stress Admin Site: IV - Left AntecubitalAdministrator: RT Abimbola Rodriguez)(N) STRESS DATA End Diast. Vol.112.0mlAv. Heart Rate83.0bpm End Syst. Vol.28.0mlCO Index BSA0.0L/min Myocardial Uoya362.0gEject. Ahkmruqd42.0% Stress Rates Pk. Fill Rate4.16EDV/secLVtime Pk. Fill 142.93msec Pk. Empty Rate4.44ESV/secLVtime Pk. Fvdjn456.79msec 10/07 Pk. Fill1.94EDV/sec Stress Scores Regional WT1.00Summed WT6.00 Regional WM0.00Summed WM2.00 LV Perfusion The stress images showed no significant defects. Wall Motion Ventricular systolic function is normal with an ejection fraction of greater than 74%. LV Perf. Quant 17 Seg. SSS2.00 Stress Defect Extent (% LAD)0.00Rest Defect Extent (% LAD)Rev. Defect Extent (% LAD)0.00 Stress Defect Extent (% LCX) 0.00Rest Defect Extent (% LCX)Rev. Defect Extent (% LCX)0.00 Stress Defect Extent (% RCA)0.00Rest Defect Extent (% RCA)Rev. Defect Extent (% RCA)0.00 Stress Defect Extent (% ELISE)0.00Rest Defect Extent (% ELISE)Rev. Defect Extent (% ELISE)0.00 Conclusion 1. No EKG evidence of stressed induced ischemia. 2. Nuclear imaging shows normal stress scans. No evidence of ischemia or infarct. 3. Normal left ventricular systolic function with an ejection fraction of greater than 70%. 4. Low risk Lexiscan nuclear stress test.
[2017-07-02 15:00] VITALS: BP 131/69
--- NOTE | 2017-07-02 15:56 | PDOC3 ---
Discharge Summary Visit Information Date of Admission: Jul 01, 2017 Date of Discharge: Jul 02, 2017 Admitting Diagnosis Comment: 1. Chest pain, atypical in an adult, at rest - initial encounter 2. DM 2 hgba1c in January 2017 was 10, VERY POOR compliance 3. HTN 4. Obesity, BMI 38, sedentary lifestyle, - METABOLIC SYNDROME 5. SMOKER - A PACK A DAY Final Diagnosis Problems Medical Problems: (1) Chest pain Status: Acute (2) Diabetes mellitus Status: Acute (3) Elevated blood pressure reading Status: Acute (4) Noncompliance with medications Status: Acute Brief Hospital Course Allergies Allergies Coded Allergies Type Severity Reaction Last Updated Verified chocolate flavor Allergy Intermediate Hives 07/02/17 Yes lavender (Lavandula angustifolia) Allergy Intermediate Hives 07/02/17 Yes oxycodone Adverse Reaction Intermediate 12/06/15 No Vital Signs Vital Signs Date Time Temp Pulse Resp B/P (MAP) Pulse Ox O2 Delivery O2 Flow Rate FiO2 07/02/17 12:33 99 Room Air 07/02/17 11:00 98.0 69 18 140/67 (91) 98.0 Lab Results Laboratory Tests Test 07/02/17 01:10 07/02/17 04:40 07/02/17 07:50 07/02/17 08:28 White Blood Count 4.9 x10^3/uL (4.0-11.0) Red Blood Count 4.29 x10^6/uL (3.50-5.40) Hemoglobin 11.6 g/dL (12.0-15.5) Hematocrit 34.4 % (36.0-47.0) Mean Corpuscular Volume 80 fL (79-100) Mean Corpuscular Hemoglobin 27 pg (25-35) Mean Corpuscular Hemoglobin Concent 34 g/dL (31-37) Red Cell Distribution Width 13.9 % (11.5-14.5) Platelet Count 273 x10^3/uL (140-400) Neutrophils (%) (Auto) 46 % (31-73) Lymphocytes (%) (Auto) 46 % (24-48) Monocytes (%) (Auto) 5 % (0-9) Eosinophils (%) (Auto) 2 % (0-3) Basophils (%) (Auto) 1 % (0-3) Neutrophils # (Auto) 2.3 x10^3uL (1.8-7.7) Lymphocytes # (Auto) 2.2 x10^3/uL (1.0-4.8) Monocytes # (Auto) 0.3 x10^3/uL (0.0-1.1) Eosinophils # (Auto) 0.1 x10^3/uL (0.0-0.7) Basophils # (Auto) 0.0 x10^3/uL (0.0-0.2) Prothrombin Time 12.0 SEC (11.7-14.0) Prothromb Time International Ratio 0.9 (0.8-1.1) D-Dimer (Roseanne) 0.91 ug/mlFEU (0.00-0.50) Sodium Level 136 mmol/L (136-145) Potassium Level 4.1 mmol/L (3.5-5.1) Chloride Level 99 mmol/L (98-107) Carbon Dioxide Level 28 mmol/L (21-32) Anion Gap 9 (6-14) Blood Urea Nitrogen 10 mg/dL (7-20) Creatinine 1.0 mg/dL (0.6-1.0) Estimated GFR (Cockcroft-Gault) 71.3 Glucose Level 382 mg/dL (70-99) Hemoglobin A1c 11.3 % (4.8-5.6) Calcium Level 8.7 mg/dL (8.5-10.1) Magnesium Level 1.8 mg/dL (1.8-2.4) Creatine Kinase 273 U/L (26-192) Creatine Kinase MB (Mass) 1.6 ng/mL (0.0-3.6) Creatine Kinase MB Relative Index 0.6 % (0-4) Troponin I Quantitative < 0.017 ng/mL (0.000-0.055) < 0.017 ng/mL (0.000-0.055) < 0.017 ng/mL (0.000-0.055) HG-Mqb-S-Type Natriuretic Peptide 51 pg/mL (0-124) Triglycerides Level 121 mg/dL (0-150) Cholesterol Level 203 mg/dL (0-200) LDL Cholesterol, Calculated 128 mg/dL (0-100) VLDL Cholesterol, Calculated 24 mg/dL (0-40) Non-HDL Cholesterol Calculated 152 mg/dL (0-129) HDL Cholesterol 51 mg/dL (40-60) Cholesterol/HDL Ratio 4.0 Glucose (Fingerstick) 169 mg/dL (70-99) Test 07/02/17 12:05 Glucose (Fingerstick) 193 mg/dL (70-99) Laboratory Tests Test 07/02/17 01:10 07/02/17 04:40 07/02/17 07:50 07/02/17 08:28 White Blood Count 4.9 x10^3/uL (4.0-11.0) Red Blood Count 4.29 x10^6/uL (3.50-5.40) Hemoglobin 11.6 g/dL (12.0-15.5) Hematocrit 34.4 % (36.0-47.0) Mean Corpuscular Volume 80 fL (79-100) Mean Corpuscular Hemoglobin 27 pg (25-35) Mean Corpuscular Hemoglobin Concent 34 g/dL (31-37) Red Cell Distribution Width 13.9 % (11.5-14.5) Platelet Count 273 x10^3/uL (140-400) Neutrophils (%) (Auto) 46 % (31-73) Lymphocytes (%) (Auto) 46 % (24-48) Monocytes (%) (Auto) 5 % (0-9) Eosinophils (%) (Auto) 2 % (0-3) Basophils (%) (Auto) 1 % (0-3) Neutrophils # (Auto) 2.3 x10^3uL (1.8-7.7) Lymphocytes # (Auto) 2.2 x10^3/uL (1.0-4.8) Monocytes # (Auto) 0.3 x10^3/uL (0.0-1.1) Eosinophils # (Auto) 0.1 x10^3/uL (0.0-0.7) Basophils # (Auto) 0.0 x10^3/uL (0.0-0.2) Prothrombin Time 12.0 SEC (11.7-14.0) Prothromb Time International Ratio 0.9 (0.8-1.1) D-Dimer (Roseanne) 0.91 ug/mlFEU (0.00-0.50) Sodium Level 136 mmol/L (136-145) Potassium Level 4.1 mmol/L (3.5-5.1) Chloride Level 99 mmol/L (98-107) Carbon Dioxide Level 28 mmol/L (21-32) Anion Gap 9 (6-14) Blood Urea Nitrogen 10 mg/dL (7-20) Creatinine 1.0 mg/dL (0.6-1.0) Estimated GFR (Cockcroft-Gault) 71.3 Glucose Level 382 mg/dL (70-99) Hemoglobin A1c 11.3 % (4.8-5.6) Calcium Level 8.7 mg/dL (8.5-10.1) Magnesium Level 1.8 mg/dL (1.8-2.4) Creatine Kinase 273 U/L (26-192) Creatine Kinase MB (Mass) 1.6 ng/mL (0.0-3.6) Creatine Kinase MB Relative Index 0.6 % (0-4) Troponin I Quantitative < 0.017 ng/mL (0.000-0.055) < 0.017 ng/mL (0.000-0.055) < 0.017 ng/mL (0.000-0.055) YW-Mvn-G-Type Natriuretic Peptide 51 pg/mL (0-124) Triglycerides Level 121 mg/dL (0-150) Cholesterol Level 203 mg/dL (0-200) LDL Cholesterol, Calculated 128 mg/dL (0-100) VLDL Cholesterol, Calculated 24 mg/dL (0-40) Non-HDL Cholesterol Calculated 152 mg/dL (0-129) HDL Cholesterol 51 mg/dL (40-60) Cholesterol/HDL Ratio 4.0 Glucose (Fingerstick) 169 mg/dL (70-99) Test 07/02/17 12:05 Glucose (Fingerstick) 193 mg/dL (70-99) Brief Hospital Course Ms. Escobedo is a 51 old [sex] who presented with [ ]History of Present Illness 51 y,.o heavy set AA female known to me from maybe 5-6 mos ago when I admitted her for similar issues, MPI was neg, She has DM non complaint with hgba`1c 10 in ,. Admits not seeing PCP, no refills not taking DM meds and BS maybe 300s at home, Also smokes a pack a day and fam hx CAD and its risk factors, No personal CAD hx though but high risk given lifestyle, habits and past medical BS breakfast 169 but has been NPO and is hungry,. Plan of care dw her, get cards, cycle CE, might need LHC given risk factors vs echo only as recent MPI was ok. COunselled on exercise, lose weight, med compliance etc. She describes the chest pain as midsternal,. heavy like someone sitting on her chest, no diaphoresis, lasted hrs, WOKE her up from sleep, no radiation, better with IV morphine. COURSE: DON SCAN DONE, NEG, HOME WITH EDUCATION aND ON InSULIN CALLED TO HER PHARMACy Dw ROBERT Guerrier and dr Harley Discharge Information Condition at Discharge: Improved, Stable Disposition/Orders: D/C to Home Scheduled Albuterol Sulfate (Ventolin Hfa Inhaler), 2 PUFF INH QID, (Reported) Insulin Aspart (Novolog), 10 UNIT SQ [id number]/GAUTAM, (Reported) Insulin Glargine,Hum.rec.anlog (Lantus Solostar), 20 UNIT SQ QHS Scheduled PRN Ibuprofen (Ibuprofen), 400 MG PO PRN Q6HRS PRN for INFLAMMATION, (Reported) Miscellaneous Medications Multivits,Ca,Minerals/Iron/FA (Women's Daily Formula Caplet), 1 EACH PO, ( Reported) TIERNEY PERES MD Jul 02, 2017 15:56
[2017-07-02] MEDS ORDERED: PANTOPRAZOLE 40 MG TABLET.DR. PO SCH (16:30)
[2017-07-02] MEDS ORDERED: INSULIN DETEMIR 300 UNITS/3 ML INSULN.PEN. SQ SCH (21:00)
[2017-09-02] MEDS ORDERED: PANT40TA3 PO (14:51)
== END 2017-07-02 16:50 | disposition home or self-care (01) | DRG 313 ==
LOC: ER 00:54 → 2 NORTH 03:15 → OBSVTOIN 10:26
PROVIDERS: ADMIT Internal Medicine; ATTEND Internal Medicine
DX: R07.89 Other chest pain (principal); E88.81 Metabolic syndrome and other insulin resistance; I27.2 Other secondary pulmonary hypertension; E11.65 Type 2 diabetes mellitus with hyperglycemia; E66.01 Morbid (severe) obesity due to excess calories; Z88.8 Allergy status to other drugs, medicaments and biological substances; Z68.38 Body mass index [BMI] 38.0-38.9, adult; F17.210 Nicotine dependence, cigarettes, uncomplicated; I10 Essential (primary) hypertension; J45.909 Unspecified asthma, uncomplicated; Z82.49 Family history of ischemic heart disease and other diseases of the circulatory system; Z86.32 Personal history of gestational diabetes; Z91.14 Patient's other noncompliance with medication regimen; F32.9 Major depressive disorder, single episode, unspecified; F41.9 Anxiety disorder, unspecified; Z88.5 Allergy status to narcotic agent
CPT/HCPCS: 36415; 71010; 71275; 74177; 78452; 80048; 80061; 82550; 82553; 82962; 83036; 83735; 83880; 84484; 85025; 85379; 85610; 93005; 93017; 94250; 94640; 94760; 96374; 96375; A9500; G0378; G0379; J1815; J2270; J2405; J2785; J7613; Q9967; 99285-25

== ENCOUNTER 2017-09-01 12:32 | Inpatient (IN) | payer BC ==
[~2017-09-01] VITALS: Ht 167.6 cm; Wt 111.8 kg
[~2017-09-01 12:32] MED LIST changes: +IBUP-1027 PO; +INSU100C4 SQ; +MULT-665 PO; +VENTOLIN HFA18 GM INH
[2017-09-01] MEDS ORDERED: IV NORMAL SALINE 1000ML BAG 1,000 ML IV SCH (12:34)
[2017-09-01 12:51] LABS: BILIRUBIN,URINE SMALL (NEG); GLUCOSE,URINE >=1000 mg/dL (NEG); NITRITE,URINE NEGATIVE (NEG); PH,URINE 5.5; PROTEIN,URINE NEGATIVE (NEG-TRACE); UROBILINOGEN,URINE 0.2 mg/dL (0.2 mg/dL)
[2017-09-01 12:53] LABS: NEG OBC UR NEG; POS OBC UR POS
--- NOTE | 2017-09-01 12:54 | RAD ---
PORTABLE CHEST 1V Clinical Indication: soa, sugar level is 400, pt. is dizzy and has a cough Comparison: Chest radiograph dated 07/02/2017 Findings: Normal lung volume. No focal consolidations. Normal pulmonary vasculature. No pleural effusion or pneumothorax. The cardiomediastinal silhouette and great vessels are normal. No acute osseous abnormality. IMPRESSION: No acute cardiopulmonary process.
[2017-09-01 12:59] LABS: BARBITURATES NEG (NEG); BENZODIAZEPINES NEG (NEG); CANNABINOIDS NEG (NEG); COCAINE NEG (NEG); METHADONE NEG (NEG); OPIATES NEG (NEG); PHENCYCLIDINE NEG (NEG); SQUAMOUS EPITHELIAL CELL,UR MOD /LPF
[2017-09-01 13:00] LABS: BACTERIA,URINE MODERATE /HPF (0-FEW); RBC,URINE OCC /HPF (0-2)
--- NOTE | 2017-09-01 13:08 | PHYS DOC ---
Past Medical History Past Medical History: Asthma, Depression, Diabetes-Type II, Other Additional Past Medical Histor: gestational diabetes, obesity Past Surgical History: , Tonsillectomy, Other Additional Past Surgical Histo: x5 Additional Information: 10/06 ppd Alcohol Use: None Drug Use: None Adult General Chief Complaint Chief Complaint: HYPERGLYCEMIA HPI HPI Patient is a 51 year old -[place] female who presents with substernal chest pain, hyperglycemia, productive cough. She states she's been out of her Lantus and NovoLog for about a month. She's been feeling dizzy over the last several days. She states that last night she developed substernal chest pain that comes and goes she describes a 6 out of 10 it's located substernally doesn' t radiate. She denies any nausea vomiting with it or shortness of breath. She is also been having brownish sputum production for the last week. She is a smoker she is to smoke 2 and half packs per day but now has cut down to half a pack per day. She's done this over 20 years. Review of Systems Review of Systems Constitutional: Denies fever or chills [] Eyes: Denies change in visual acuity, redness, or eye pain [] HENT: Denies nasal congestion or sore throat [] Respiratory: Denies shortness of breath, positive for cough Cardiovascular: No additional information not addressed in HPI [] GI: Denies abdominal pain, nausea, vomiting, bloody stools or diarrhea [] : Denies dysuria or hematuria [] Musculoskeletal: Denies back pain or joint pain [] Integument: Denies rash or skin lesions [] Neurologic: Denies headache, focal weakness or sensory changes [] Endocrine: Denies polyuria or polydipsia [] All other systems were reviewed and found to be within normal limits, except as documented in this note. Current Medications Current Medications Current Medications Medications (Trade) Dose Ordered Sig/Juan Start Time Stop Time Status Last Admin Dose Admin Ondansetron HCl (Zofran) 4 mg PRN Q8HRS PRN 09/01/17 15:15 09/02/17 15:14 Sodium Chloride 1,000 ml @ 1,000 mls/hr 1X ONCE 09/01/17 15:15 09/01/17 16:14 09/01/17 15:36 1,000 MLS/HR Allergies Allergies Allergies Coded Allergies Type Severity Reaction Last Updated Verified chocolate flavor Allergy Intermediate Hives 07/02/17 Yes lavender (Lavandula angustifolia) Allergy Intermediate Hives 07/02/17 Yes oxycodone Adverse Reaction Intermediate 12/06/15 No Physical Exam Physical Exam Constitutional: Well developed, well nourished, no acute distress, non-toxic appearance. [] HENT: Normocephalic, atraumatic, bilateral external ears normal, oropharynx moist, no oral exudates, nose normal. [] Eyes: PERRLA, EOMI, conjunctiva normal, no discharge. [] Neck: Normal range of motion, no tenderness, supple, no stridor. [] Cardiovascular:Heart rate regular rhythm, no murmur [] Lungs & Thorax: Bilateral breath sounds clear to auscultation [] Abdomen: Bowel sounds normal, soft, no tenderness, no masses, no pulsatile masses. [] Skin: Warm, dry, no erythema, no rash. [] Back: No tenderness, no CVA tenderness. [] Extremities: No tenderness, no cyanosis, no clubbing, ROM intact, no edema. [] Neurologic: Alert and oriented X 3, normal motor function, normal sensory function, no focal deficits noted. [] Psychologic: Affect normal, judgement normal, mood normal. [] Current Patient Data Vital Signs Vital Signs Date Time Temp Pulse Resp B/P (MAP) Pulse Ox O2 Delivery O2 Flow Rate FiO2 09/01/17 15:38 68 18 154/72 (99) 99 Room Air 09/01/17 12:52 98.7 98.7 Lab Values Laboratory Tests Test 09/01/17 12:41 09/01/17 12:42 09/01/17 13:10 Urine Collection Type Void Urine Color Yellow Urine Clarity Clear Urine pH 5.5 Urine Specific [place] >=1.030 Urine Protein Negative mg/dL (NEG-TRACE) Urine Glucose (UA) >=1000 mg/dL (NEG) Urine Ketones (Stick) Trace mg/dL (NEG) Urine Blood Negative (NEG) Urine Nitrite Negative (NEG) Urine Bilirubin Small (NEG) Urine Urobilinogen Dipstick 0.2 mg/dL (0.2 mg/dL) Urine Leukocyte Esterase Small (NEG) Urine RBC Occ /HPF (0-2) Urine WBC 11-20 /HPF (0-4) Urine Squamous Epithelial Cells Mod /LPF Urine Bacteria Moderate /HPF (0-FEW) Urine Hyaline Casts Moderate /HPF Urine Mucus Marked /LPF Urine Test Negative (NEG) Urine Opiates Screen Neg (NEG) Urine Methadone Screen Neg (NEG) Urine Barbiturates Neg (NEG) Urine Phencyclidine Screen Neg (NEG) Urine Amphetamine/Methamphetamine Neg (NEG) Urine Benzodiazepines Screen Neg (NEG) Urine Cocaine Screen Neg (NEG) Urine Cannabinoids Screen Neg (NEG) Urine Ethyl Alcohol Neg (NEG) POC Urine HCG, Qualitative Hcg negative (Negative) White Blood Count 5.4 x10^3/uL (4.0-11.0) Red Blood Count 4.67 x10^6/uL (3.50-5.40) Hemoglobin 12.4 g/dL (12.0-15.5) Hematocrit 37.9 % (36.0-47.0) Mean Corpuscular Volume 81 fL (79-100) Mean Corpuscular Hemoglobin 27 pg (25-35) Mean Corpuscular Hemoglobin Concent 33 g/dL (31-37) Red Cell Distribution Width 14.8 % (11.5-14.5) H Platelet Count 338 x10^3/uL (140-400) Neutrophils (%) (Auto) 51 % (31-73) Lymphocytes (%) (Auto) 41 % (24-48) Monocytes (%) (Auto) 6 % (0-9) Eosinophils (%) (Auto) 1 % (0-3) Basophils (%) (Auto) 1 % (0-3) Neutrophils # (Auto) 2.7 x10^3uL (1.8-7.7) Lymphocytes # (Auto) 2.2 x10^3/uL (1.0-4.8) Monocytes # (Auto) 0.3 x10^3/uL (0.0-1.1) Eosinophils # (Auto) 0.1 x10^3/uL (0.0-0.7) Basophils # (Auto) 0.0 x10^3/uL (0.0-0.2) Sodium Level 133 mmol/L (136-145) L Potassium Level 4.2 mmol/L (3.5-5.1) Chloride Level 99 mmol/L (98-107) Carbon Dioxide Level 25 mmol/L (21-32) Anion Gap 9 (6-14) Blood Urea Nitrogen 19 mg/dL (7-20) Creatinine 1.2 mg/dL (0.6-1.0) H Estimated GFR (Cockcroft-Gault) 57.8 Glucose Level 358 mg/dL (70-99) H Calcium Level 9.4 mg/dL (8.5-10.1) Magnesium Level 1.7 mg/dL (1.8-2.4) L Total Bilirubin 0.1 mg/dL (0.2-1.0) L Direct Bilirubin 0.1 mg/dL (0.0-0.2) Aspartate Amino Transferase (AST) 19 U/L (15-37) Alanine Aminotransferase (ALT) 32 U/L (14-59) Alkaline Phosphatase 81 U/L (46-116) Creatine Kinase 183 U/L (26-192) Creatine Kinase MB (Mass) 1.8 ng/mL (0.0-3.6) Creatine Kinase MB Relative Index 1.0 % (0-4) Troponin I Quantitative < 0.017 ng/mL (0.000-0.055) GE-Rfv-M-Type Natriuretic Peptide 71 pg/mL (0-124) Total Protein 8.3 g/dL (6.4-8.2) H Albumin 3.4 g/dL (3.4-5.0) Lipase 190 U/L (73-393) Thyroid Stimulating Hormone (TSH) 0.591 uIU/mL (0.358-3.74) Laboratory Tests 09/01/17 13:10 Laboratory Tests 09/01/17 13:10 EKG EKG EKG shows sinus rhythm with rate of 85 bpm with T-wave inversions noted in 1 and aVL, no ST elevations appreciated, normal axis, QTC 410 ms, as interpreted by me. Radiology/Procedures Radiology/Procedures [facility] [address] [place] [address] IMAGING REPORT Signed PATIENT: NILA GAINES ACCOUNT: [id number] : 1965 LOCATION: ER AGE: 51 SEX: F EXAM STATUS: REG ER ORD. PHYSICIAN: SERENITY LING MD REASON: soa, sugar level is 400, pt. is dizzy and has a cough PROCEDURE: PORTABLE CHEST 1V PORTABLE CHEST 1V Clinical Indication: soa, sugar level is 400, pt. is dizzy and has a cough Comparison: Chest radiograph dated 07/02/2017 Findings: Normal lung volume. No focal consolidations. Normal pulmonary vasculature. No pleural effusion or pneumothorax. The cardiomediastinal silhouette and great vessels are normal. No acute osseous abnormality. IMPRESSION: No acute cardiopulmonary process. DICTATED and SIGNED BY: ROBYN CAMARGO MD DATE: 09/01/17 1247 CC: SERENITY LING MD; NO PCP ~ Impressions: Hyperglycemia Noncompliance with medications Dizziness Chest pain Course & Med Decision Making Course & Med Decision Making Pertinent Labs and Imaging studies reviewed. (See chart for details) EKG, chest x-ray nonacute, she does have T-wave inversions in 1 and aVL, will admit for chest pain rule out and restarting all of her home medications. She's received IV fluids. She is stable condition at this time. Dragon Disclaimer Dragon Disclaimer This electronic medical record was generated, in whole or in part, using a voice recognition dictation system. Departure Departure Impression: Primary Impression: Chest pain Disposition: ADMITTED INPATIENT Admitting Physician: Shari Llanes Condition: STABLE Referrals: NO PCP (PCP) Problem Qualifiers Primary Impression: Chest pain Chest pain type: unspecified Qualified Codes: R07.9 - Chest pain, unspecified SERENITY LING MD Sep 01, 2017 13:08
--- NOTE | 2017-09-01 13:09 | EKG ---
[facility] [address] [place] [address] Test Date: 2017-09-01 Test Time: 12:49:00 Pat Name: NILA GAINES Department: Room: Gender: F Managed Care Specialist: : 1965 Requested By: SERENITY LING Order Number: [id number] Reading MD: Measurements Intervals Cash Rate: 85 P: 46 MI: 136 QRS: 17 QRSD: 76 T: 109 QT: 340 QTc: 410 Interpretive Statements SINUS RHYTHM T ABNORMALITY IN HIGH LATERAL LEADS ABNORMAL ECG RI6.01 No previous ECG available for comparison
[2017-09-01 13:26] LABS: BASO % 1 % (0-3); EOS % 1 % (0-3); HEMATOCRIT 37.9 % (36.0-47.0); HEMOGLOBIN 12.4 g/dL (12.0-15.5); LYMPH # 2.2 x10^3/uL (1.0-4.8); LYMPH % 41 % (24-48); MEAN CORPUSCULAR HEMOGLOBIN 27 pg (25-35); MEAN CORPUSCULAR HGB CONC 33 g/dL (31-37); MEAN CORPUSCULAR VOLUME 81 fL (79-100); MONO % 6 % (0-9); NEUT % 51 % (31-73); PLATELET COUNT 338 x10^3/uL (140-400); RED BLOOD COUNT 4.67 x10^6/uL (3.50-5.40); RED CELL DISTRIBUTION WIDTH 14.8 % (11.5-14.5); WHITE BLOOD COUNT 5.4 x10^3/uL (4.0-11.0)
[2017-09-01 13:42] LABS: CALCIUM 9.4 mg/dL (8.5-10.1); CREATININE 1.2 mg/dL (0.6-1.0); GFR 57.8; POTASSIUM 4.2 mmol/L (3.5-5.1)
[2017-09-01 13:54] LABS: ALBUMIN 3.4 g/dL (3.4-5.0); CKMB MASS 1.8 ng/mL (0.0-3.6); DIRECT BILIRUBIN 0.1 mg/dL (0.0-0.2); MAGNESIUM 1.7 mg/dL (1.8-2.4); TOTAL BILIRUBIN 0.1 mg/dL (0.2-1.0); TOTAL PROTEIN 8.3 g/dL (6.4-8.2)
[2017-09-01] MEDS ORDERED: ONDANSETRON PF 4 MG/2 ML VIAL. IV PRN ×2 (15:15→16:15)
[2017-09-01] MEDS ORDERED: IV NORMAL SALINE 1000ML BAG 1,000 ML IV ONE (15:15)
[2017-09-01] MEDS ORDERED: ZOLPIDEM 5 MG TABLET. PO PRN (16:15)
[2017-09-01] MEDS ORDERED: ACETAMINOPHEN 500 MG TABLET PO PRN (16:15)
[2017-09-01] MEDS ORDERED: MAG HYDROX/ALUMINUM HYD/SIMETH 30 ML ORAL.SUSP PO PRN (16:15)
[2017-09-01] MEDS ORDERED: IBUPROFEN 600 MG TABLET. PO PRN (16:15)
[2017-09-01] MEDS ORDERED: CALCIUM CARBONATE 500 MG TAB.CHEW PO PRN (16:15)
[2017-09-01] MEDS ORDERED: NICOTINE 21MG PATCH. TD PRN (16:15)
[2017-09-01] MEDS ORDERED: DEXTROSE 50% 25 GM / 50ML DISP.SYRIN. IV PRN (16:15)
--- NOTE | 2017-09-01 16:18 | PDOC1 ---
History and Physical Date of Admission Date of Admission DATE: 09/01/17 TIME: 16:10 Identification/Chief Complaint Chief Complaint chest tightness Problems: Source Source: Caregiver, Chart review, Patient History of Present Illness History of Present Illness 51 y.o AA female who comes in again for CP, She was just here 2 mos ago, for the same, seen by cards, echo and MPI were normal i do believe was mentioned lHC but she refused,. She is still scared of LHC, Trops and EKG ok, One isolated read of systolic 170s after I got her worked up saying that she needs to ff up as OP with PCP for these,. She does not describe it as GERD like, not specifically requesting narcs, She needs to lose weight , BUt admitted bec of BS > 300, off insulin we dcd her with x 1 month now. She claims cost issues, but now she has insurance, High hgba1c last time, no PCP,. Looks comfortable but motions to central chest,, no radiation no soa, diaphoresis or radiation, Happened at rest, SMokes less than half a pack, Past Medical History Cardiovascular: No pertinent hx Pulmonary: Asthma CENTRAL NERVOUS SYSTEM: Other GI: No pertinent hx Heme/Onc: No pertinent hx Hepatobiliary: No pertinent hx Psych: Anxiety, Depression, Other Musculoskeletal: Other Rheumatologic: No pertinent hx Infectious disease: No pertinent hx Renal/: UTI Endocrine: Diabetes Past Surgical History Past Surgical History: , Tonsillectomy Family History Family History: High Cholestrol, Hypertension Social History Smoke: <1 pack per day ALCOHOL: occassional Drugs: None Current Problem List Problem List Problems Medical Problems: (1) Chest pain Status: Acute Problems: Current Medications Current Medications Current Medications Sodium Chloride 1,000 ml @ 1,000 mls/hr Q1H IV Last administered on 13:16; Start 09/01/17 at 12:34; Stop 09/01/17 at 13:33; Status DC Sodium Chloride 1,000 ml @ 1,000 mls/hr 1X ONCE IV Last administered on 09/01 15:36; Start 09/01/17 at 15:15; Stop 09/01/17 at 16:14 Ondansetron HCl (Zofran) 4 mg PRN Q8HRS PRN IV NAUSEA/VOMITING; Start at 15:15; Stop 09/02/17 at 15:14 Active Scripts Active Lantus Solostar (Insulin Glargine,Hum.rec.anlog) 100 Unit/1 Ml Insuln.pen 20 Unit SQ QHS Reported Novolog (Insulin Aspart) 100 Unit/1 Ml Cartridge 10 Unit SQ BIDWBKFT/GAUTAM Ibuprofen 400 Mg Tablet 400 Mg PO PRN Q6HRS PRN Women's Daily Formula Caplet (Multivits,Ca,Minerals/Iron/FA) 1 Each Tablet 1 Each PO Ventolin Hfa Inhaler (Albuterol Sulfate) 18 Gm Hfa.aer.ad 2 Puff INH QID Allergies Allergies: Coded Allergies: chocolate flavor (Verified Allergy, Intermediate, Hives, 07/02/17) lavender (Lavandula angustifolia) (Verified Allergy, Intermediate, Hives, 07/02/17) oxycodone (Unverified Adverse Reaction, Intermediate, 12/06/15) " NAUSEA, VOMITING, LIGHTHEADED" ROS Review of System as per HPI, all else is neg Physical Exam General: Alert, Oriented X3, Cooperative, No acute distress HEENT: Atraumatic, PERRLA, EOMI Lungs: Clear to auscultation, Normal air movement Heart: S1S2, RRR, no thrills, no rubs, no gallops, no murmurs Cardiovascular: S1, S2 Breasts: Normal, Rt breast nml w/o mass, Lt breast nml w/o mass, Nipples normal Abdomen: Normal bowel sounds, Soft, No tenderness, No hepatosplenomegaly, No masses Male Genitals Exam: normal genitalia, normal prostate Rectal Exam: not examined PELVIC: Nml ext genitalia Extremities: No clubbing, No cyanosis, No edema, Normal pulses, No tenderness/ swelling Skin: No rashes, No breakdown, No significant lesion Neuro: Normal gait, Normal speech, Strength at 5/5 X4 ext, Normal tone, Sensation intact, Cranial nerves 3-12 NL, Reflexes 2+ Psych/Mental Status: Mental status NL, Mood NL Vitals Vitals Vital Signs Date Time Temp Pulse Resp B/P (MAP) Pulse Ox O2 Delivery O2 Flow Rate FiO2 09/01/17 15:38 68 18 154/72 (99) 99 Room Air 09/01/17 12:52 98.7 98.7 Labs Labs Laboratory Tests Test 09/01/17 12:41 09/01/17 12:42 09/01/17 13:10 Urine Collection Type Void Urine Color Yellow Urine Clarity Clear Urine pH 5.5 Urine Specific [place] >=1.030 Urine Protein Negative mg/dL (NEG-TRACE) Urine Glucose (UA) >=1000 mg/dL (NEG) Urine Ketones (Stick) Trace mg/dL (NEG) Urine Blood Negative (NEG) Urine Nitrite Negative (NEG) Urine Bilirubin Small (NEG) Urine Urobilinogen Dipstick 0.2 mg/dL (0.2 mg/dL) Urine Leukocyte Esterase Small (NEG) Urine RBC Occ /HPF (0-2) Urine WBC 11-20 /HPF (0-4) Urine Squamous Epithelial Cells Mod /LPF Urine Bacteria Moderate /HPF (0-FEW) Urine Hyaline Casts Moderate /HPF Urine Mucus Marked /LPF Urine Test Negative (NEG) Urine Opiates Screen Neg (NEG) Urine Methadone Screen Neg (NEG) Urine Barbiturates Neg (NEG) Urine Phencyclidine Screen Neg (NEG) Urine Amphetamine/Methamphetamine Neg (NEG) Urine Benzodiazepines Screen Neg (NEG) Urine Cocaine Screen Neg (NEG) Urine Cannabinoids Screen Neg (NEG) Urine Ethyl Alcohol Neg (NEG) Bedside Urine HCG, Qualitative Hcg negative (Negative) White Blood Count 5.4 x10^3/uL (4.0-11.0) Red Blood Count 4.67 x10^6/uL (3.50-5.40) Hemoglobin 12.4 g/dL (12.0-15.5) Hematocrit 37.9 % (36.0-47.0) Mean Corpuscular Volume 81 fL (79-100) Mean Corpuscular Hemoglobin 27 pg (25-35) Mean Corpuscular Hemoglobin Concent 33 g/dL (31-37) Red Cell Distribution Width 14.8 % (11.5-14.5) Platelet Count 338 x10^3/uL (140-400) Neutrophils (%) (Auto) 51 % (31-73) Lymphocytes (%) (Auto) 41 % (24-48) Monocytes (%) (Auto) 6 % (0-9) Eosinophils (%) (Auto) 1 % (0-3) Basophils (%) (Auto) 1 % (0-3) Neutrophils # (Auto) 2.7 x10^3uL (1.8-7.7) Lymphocytes # (Auto) 2.2 x10^3/uL (1.0-4.8) Monocytes # (Auto) 0.3 x10^3/uL (0.0-1.1) Eosinophils # (Auto) 0.1 x10^3/uL (0.0-0.7) Basophils # (Auto) 0.0 x10^3/uL (0.0-0.2) Sodium Level 133 mmol/L (136-145) Potassium Level 4.2 mmol/L (3.5-5.1) Chloride Level 99 mmol/L (98-107) Carbon Dioxide Level 25 mmol/L (21-32) Anion Gap 9 (6-14) Blood Urea Nitrogen 19 mg/dL (7-20) Creatinine 1.2 mg/dL (0.6-1.0) Estimated GFR (Cockcroft-Gault) 57.8 Glucose Level 358 mg/dL (70-99) Calcium Level 9.4 mg/dL (8.5-10.1) Magnesium Level 1.7 mg/dL (1.8-2.4) Total Bilirubin 0.1 mg/dL (0.2-1.0) Direct Bilirubin 0.1 mg/dL (0.0-0.2) Aspartate Amino Transf (AST/SGOT) 19 U/L (15-37) Alanine Aminotransferase (ALT/SGPT) 32 U/L (14-59) Alkaline Phosphatase 81 U/L (46-116) Creatine Kinase 183 U/L (26-192) Creatine Kinase MB (Mass) 1.8 ng/mL (0.0-3.6) Creatine Kinase MB Relative Index 1.0 % (0-4) Troponin I Quantitative < 0.017 ng/mL (0.000-0.055) OS-Men-V-Type Natriuretic Peptide 71 pg/mL (0-124) Total Protein 8.3 g/dL (6.4-8.2) Albumin 3.4 g/dL (3.4-5.0) Lipase 190 U/L (73-393) Thyroid Stimulating Hormone (TSH) 0.591 uIU/mL (0.358-3.74) Laboratory Tests Test 09/01/17 12:41 09/01/17 12:42 09/01/17 13:10 Urine Collection Type Void Urine Color Yellow Urine Clarity Clear Urine pH 5.5 Urine Specific [place] >=1.030 Urine Protein Negative mg/dL (NEG-TRACE) Urine Glucose (UA) >=1000 mg/dL (NEG) Urine Ketones (Stick) Trace mg/dL (NEG) Urine Blood Negative (NEG) Urine Nitrite Negative (NEG) Urine Bilirubin Small (NEG) Urine Urobilinogen Dipstick 0.2 mg/dL (0.2 mg/dL) Urine Leukocyte Esterase Small (NEG) Urine RBC Occ /HPF (0-2) Urine WBC 11-20 /HPF (0-4) Urine Squamous Epithelial Cells Mod /LPF Urine Bacteria Moderate /HPF (0-FEW) Urine Hyaline Casts Moderate /HPF Urine Mucus Marked /LPF Urine Test Negative (NEG) Urine Opiates Screen Neg (NEG) Urine Methadone Screen Neg (NEG) Urine Barbiturates Neg (NEG) Urine Phencyclidine Screen Neg (NEG) Urine Amphetamine/Methamphetamine Neg (NEG) Urine Benzodiazepines Screen Neg (NEG) Urine Cocaine Screen Neg (NEG) Urine Cannabinoids Screen Neg (NEG) Urine Ethyl Alcohol Neg (NEG) Bedside Urine HCG, Qualitative Hcg negative (Negative) White Blood Count 5.4 x10^3/uL (4.0-11.0) Red Blood Count 4.67 x10^6/uL (3.50-5.40) Hemoglobin 12.4 g/dL (12.0-15.5) Hematocrit 37.9 % (36.0-47.0) Mean Corpuscular Volume 81 fL (79-100) Mean Corpuscular Hemoglobin 27 pg (25-35) Mean Corpuscular Hemoglobin Concent 33 g/dL (31-37) Red Cell Distribution Width 14.8 % (11.5-14.5) Platelet Count 338 x10^3/uL (140-400) Neutrophils (%) (Auto) 51 % (31-73) Lymphocytes (%) (Auto) 41 % (24-48) Monocytes (%) (Auto) 6 % (0-9) Eosinophils (%) (Auto) 1 % (0-3) Basophils (%) (Auto) 1 % (0-3) Neutrophils # (Auto) 2.7 x10^3uL (1.8-7.7) Lymphocytes # (Auto) 2.2 x10^3/uL (1.0-4.8) Monocytes # (Auto) 0.3 x10^3/uL (0.0-1.1) Eosinophils # (Auto) 0.1 x10^3/uL (0.0-0.7) Basophils # (Auto) 0.0 x10^3/uL (0.0-0.2) Sodium Level 133 mmol/L (136-145) Potassium Level 4.2 mmol/L (3.5-5.1) Chloride Level 99 mmol/L (98-107) Carbon Dioxide Level 25 mmol/L (21-32) Anion Gap 9 (6-14) Blood Urea Nitrogen 19 mg/dL (7-20) Creatinine 1.2 mg/dL (0.6-1.0) Estimated GFR (Cockcroft-Gault) 57.8 Glucose Level 358 mg/dL (70-99) Calcium Level 9.4 mg/dL (8.5-10.1) Magnesium Level 1.7 mg/dL (1.8-2.4) Total Bilirubin 0.1 mg/dL (0.2-1.0) Direct Bilirubin 0.1 mg/dL (0.0-0.2) Aspartate Amino Transf (AST/SGOT) 19 U/L (15-37) Alanine Aminotransferase (ALT/SGPT) 32 U/L (14-59) Alkaline Phosphatase 81 U/L (46-116) Creatine Kinase 183 U/L (26-192) Creatine Kinase MB (Mass) 1.8 ng/mL (0.0-3.6) Creatine Kinase MB Relative Index 1.0 % (0-4) Troponin I Quantitative < 0.017 ng/mL (0.000-0.055) BZ-Tfh-K-Type Natriuretic Peptide 71 pg/mL (0-124) Total Protein 8.3 g/dL (6.4-8.2) Albumin 3.4 g/dL (3.4-5.0) Lipase 190 U/L (73-393) Thyroid Stimulating Hormone (TSH) 0.591 uIU/mL (0.358-3.74) VTE Prophylaxis Ordered VTE Prophylaxis Devices: Yes VTE Pharmacological Prophylaxi: Yes Assessment/Plan Assessment/Plan 1. Chest pain, atypical , in adult at rest - NORMAL TTE and MPI Jun 2017, refusing LHC 2. Obesity - needs to lose linda 3. DM2 on insulin,. uncontrolled non compliant 4. Smoker PLAn: Admitted Usually no LHC indicated if MPI and echo douglas and CE normal with EKG ok - bec the probability of it being cardiac is very low So i consulted GI too as this is her third admit for the same with non compliance to my mention of trial PPI at home for mos Trial of PPI and tums, [place], GI cocktail Needs to lose linda Resume home insulin regimen SSI Needs a PCP - give a pamphlet to this patient, for the nth time She claims she just got insurance now She needs to quit smoking [place] patch Seen at ER HEavy discussion and educn TIERNEY PERES MD Sep 01, 2017 16:18
[2017-09-01] MEDS ORDERED: ALBUTEROL SULFATE 2.5 MG/3 ML NEBU. ONE (16:25)
[2017-09-01] MEDS ORDERED: MAG HYDROX/ALUMINUM HYD/SIMETH 30 ML ORAL.SUSP PO ONE (16:30)
[2017-09-01] MEDS ORDERED: MAGNESIUM SULFATE 2GM 50 ML IV ONE (16:30)
[2017-09-01] MEDS: INSULIN ASPART 300 UNITS/3 ML INSULN.PEN SQ SCH ×2 (17:00)
[2017-09-01] MEDS ORDERED: NON FORMULARY ITEM (Albuterol Sulfate (Ventolin Hfa Inhaler) 2 PUFF) INH SCH (17:00)
[2017-09-01 18:14] VITALS: BP 137/62
[2017-09-01 19:00] VITALS: BP 157/59
[2017-09-01] MEDS ORDERED: ALBUTEROL SULFATE 2.5 MG/3 ML NEBU. NEB SCH (20:00)
[2017-09-01] MEDS ORDERED: INSULIN DETEMIR 300 UNITS/3 ML INSULN.PEN. SQ SCH (21:00)
[2017-09-01] MEDS ORDERED: FAMOTIDINE 20 MG TABLET. PO SCH (21:00)
[2017-09-01 23:36] VITALS: BP 125/68
[2017-09-02 03:30] VITALS: BP 134/44
[2017-09-02] MEDS ORDERED: ALBUTEROL SULFATE 2.5 MG/3 ML NEBU. NEB PRN (06:00)
[2017-09-02 06:02] LABS: BASO % 1 % (0-3); EOS % 2 % (0-3); HEMATOCRIT 33.7 % (36.0-47.0); LYMPH # 2.4 x10^3/uL (1.0-4.8); LYMPH % 53 % (24-48); MEAN CORPUSCULAR HEMOGLOBIN 27 pg (25-35); MEAN CORPUSCULAR HGB CONC 33 g/dL (31-37); MEAN CORPUSCULAR VOLUME 82 fL (79-100); MONO % 5 % (0-9); NEUT % 40 % (31-73); PLATELET COUNT 297 x10^3/uL (140-400); RED BLOOD COUNT 4.12 x10^6/uL (3.50-5.40); RED CELL DISTRIBUTION WIDTH 14.7 % (11.5-14.5); WHITE BLOOD COUNT 4.5 x10^3/uL (4.0-11.0)
[2017-09-02 06:43] LABS: CALCIUM 8.6 mg/dL (8.5-10.1); GFR 71.3; POTASSIUM 4.2 mmol/L (3.5-5.1)
[2017-09-02 06:55] VITALS: BP 143/59
[2017-09-02] MEDS: INSULIN ASPART 300 UNITS/3 ML INSULN.PEN SQ SCH ×3 (08:51→12:41)
--- NOTE | 2017-09-02 09:42 | PDOC2 ---
GI CONSULT Reason For Consult: Chest pain, negative workup, 3rd admit HPI: HPI: 51 y/o female w/ upper chest pain that comes and goes, started over the summer, she feels related to smoking cigarettes/pulm issues. Has had a cough for awhile , unchanged, not related to pain. Pain is also unrelated to eating or movement. Sometimes felt in back between shoulders. No dysphagia, odynophagia. No reflux, heartburn, dyspepsia. Has had instances of bloating and early satiety, but not related to chest pain. No n/v. No weight loss. No change in appetite. No abd pain. No diarrhea or constipation. No hematochezia or melena. No previous EGD or colonoscopy. No GB, pancreas, or liver history. No NSAID use. On PO H2 nata here. Previous echocardiogram and MPI unrevealing. Per RN, non-compliant w/ DM treatment. PMH: PMH: asthma/COPD, DM (last A1c >11), peripheral neuropathy, UTI, anxiety/depression, tonsillectomy, x5 FH: Family History: No pertinent hx (denies GI cancers), Other (adopted) Social History: Smoke: <1 pack per day (1/2 ppd down from 2.5 ppd) ALCOHOL: occassional Drugs: None ROS: GEN: Denies fevers, chills, sweats HEENT: Denies blurred vision, sore throat CV: +chest pain RESP: +cough GI: Per HPI : Denies hematuria, dysuria ENDO: Denies weight changes NEURO: Denies confusion, dizziness MSK: Denies weakness, joint pain/swelling SKIN: Denies jaundice, pruritus Vitals: Vitals: Vital Signs Date Time Temp Pulse Resp B/P (MAP) Pulse Ox O2 Delivery O2 Flow Rate FiO2 09/02/17 06:55 98.6 62 17 143/59 (87) 95 Room Air 98.6 Labs: Labs: Laboratory Tests Test 09/01/17 12:41 09/01/17 12:42 09/01/17 13:10 09/01/17 17:35 Urine Collection Type Void Urine Color Yellow Urine Clarity Clear Urine pH 5.5 Urine Specific [place] >=1.030 Urine Protein Negative mg/dL (NEG-TRACE) Urine Glucose (UA) >=1000 mg/dL (NEG) Urine Ketones (Stick) Trace mg/dL (NEG) Urine Blood Negative (NEG) Urine Nitrite Negative (NEG) Urine Bilirubin Small (NEG) Urine Urobilinogen Dipstick 0.2 mg/dL (0.2 mg/dL) Urine Leukocyte Esterase Small (NEG) Urine RBC Occ /HPF (0-2) Urine WBC 11-20 /HPF (0-4) Urine Squamous Epithelial Cells Mod /LPF Urine Bacteria Moderate /HPF (0-FEW) Urine Hyaline Casts Moderate /HPF Urine Mucus Marked /LPF Urine Test Negative (NEG) Urine Opiates Screen Neg (NEG) Urine Methadone Screen Neg (NEG) Urine Barbiturates Neg (NEG) Urine Phencyclidine Screen Neg (NEG) Urine Amphetamine/Methamphetamine Neg (NEG) Urine Benzodiazepines Screen Neg (NEG) Urine Cocaine Screen Neg (NEG) Urine Cannabinoids Screen Neg (NEG) Urine Ethyl Alcohol Neg (NEG) Bedside Urine HCG, Qualitative Hcg negative (Negative) White Blood Count 5.4 x10^3/uL (4.0-11.0) Red Blood Count 4.67 x10^6/uL (3.50-5.40) Hemoglobin 12.4 g/dL (12.0-15.5) Hematocrit 37.9 % (36.0-47.0) Mean Corpuscular Volume 81 fL (79-100) Mean Corpuscular Hemoglobin 27 pg (25-35) Mean Corpuscular Hemoglobin Concent 33 g/dL (31-37) Red Cell Distribution Width 14.8 % (11.5-14.5) Platelet Count 338 x10^3/uL (140-400) Neutrophils (%) (Auto) 51 % (31-73) Lymphocytes (%) (Auto) 41 % (24-48) Monocytes (%) (Auto) 6 % (0-9) Eosinophils (%) (Auto) 1 % (0-3) Basophils (%) (Auto) 1 % (0-3) Neutrophils # (Auto) 2.7 x10^3uL (1.8-7.7) Lymphocytes # (Auto) 2.2 x10^3/uL (1.0-4.8) Monocytes # (Auto) 0.3 x10^3/uL (0.0-1.1) Eosinophils # (Auto) 0.1 x10^3/uL (0.0-0.7) Basophils # (Auto) 0.0 x10^3/uL (0.0-0.2) Sodium Level 133 mmol/L (136-145) Potassium Level 4.2 mmol/L (3.5-5.1) Chloride Level 99 mmol/L (98-107) Carbon Dioxide Level 25 mmol/L (21-32) Anion Gap 9 (6-14) Blood Urea Nitrogen 19 mg/dL (7-20) Creatinine 1.2 mg/dL (0.6-1.0) Estimated GFR (Cockcroft-Gault) 57.8 Glucose Level 358 mg/dL (70-99) Calcium Level 9.4 mg/dL (8.5-10.1) Magnesium Level 1.7 mg/dL (1.8-2.4) Total Bilirubin 0.1 mg/dL (0.2-1.0) Direct Bilirubin 0.1 mg/dL (0.0-0.2) Aspartate Amino Transf (AST/SGOT) 19 U/L (15-37) Alanine Aminotransferase (ALT/SGPT) 32 U/L (14-59) Alkaline Phosphatase 81 U/L (46-116) Creatine Kinase 183 U/L (26-192) Creatine Kinase MB (Mass) 1.8 ng/mL (0.0-3.6) Creatine Kinase MB Relative Index 1.0 % (0-4) Troponin I Quantitative < 0.017 ng/mL (0.000-0.055) WA-Tfo-B-Type Natriuretic Peptide 71 pg/mL (0-124) Total Protein 8.3 g/dL (6.4-8.2) Albumin 3.4 g/dL (3.4-5.0) Lipase 190 U/L (73-393) Thyroid Stimulating Hormone (TSH) 0.591 uIU/mL (0.358-3.74) Glucose (Fingerstick) 191 mg/dL (70-99) Test 09/01/17 20:55 09/02/17 04:00 Troponin I Quantitative < 0.017 ng/mL (0.000-0.055) < 0.017 ng/mL (0.000-0.055) White Blood Count 4.5 x10^3/uL (4.0-11.0) Red Blood Count 4.12 x10^6/uL (3.50-5.40) Hemoglobin 11.0 g/dL (12.0-15.5) Hematocrit 33.7 % (36.0-47.0) Mean Corpuscular Volume 82 fL (79-100) Mean Corpuscular Hemoglobin 27 pg (25-35) Mean Corpuscular Hemoglobin Concent 33 g/dL (31-37) Red Cell Distribution Width 14.7 % (11.5-14.5) Platelet Count 297 x10^3/uL (140-400) Neutrophils (%) (Auto) 40 % (31-73) Lymphocytes (%) (Auto) 53 % (24-48) Monocytes (%) (Auto) 5 % (0-9) Eosinophils (%) (Auto) 2 % (0-3) Basophils (%) (Auto) 1 % (0-3) Neutrophils # (Auto) 1.8 x10^3uL (1.8-7.7) Lymphocytes # (Auto) 2.4 x10^3/uL (1.0-4.8) Monocytes # (Auto) 0.2 x10^3/uL (0.0-1.1) Eosinophils # (Auto) 0.1 x10^3/uL (0.0-0.7) Basophils # (Auto) 0.0 x10^3/uL (0.0-0.2) Sodium Level 135 mmol/L (136-145) Potassium Level 4.2 mmol/L (3.5-5.1) Chloride Level 103 mmol/L (98-107) Carbon Dioxide Level 26 mmol/L (21-32) Anion Gap 6 (6-14) Blood Urea Nitrogen 14 mg/dL (7-20) Creatinine 1.0 mg/dL (0.6-1.0) Estimated GFR (Cockcroft-Gault) 71.3 Glucose Level 254 mg/dL (70-99) Calcium Level 8.6 mg/dL (8.5-10.1) Allergies: Coded Allergies: chocolate flavor (Verified Allergy, Intermediate, Hives, 07/02/17) lavender (Lavandula angustifolia) (Verified Allergy, Intermediate, Hives, 07/02/17) oxycodone (Unverified Adverse Reaction, Intermediate, 12/06/15) " NAUSEA, VOMITING, LIGHTHEADED" Medications: Current Medications Medications (Trade) Dose Ordered Sig/Juan Route PRN Reason Start Time Stop Time Status Last Admin Dose Admin Sodium Chloride 1,000 ml @ 1,000 mls/hr Q1H IV 09/01/17 12:34 09/01/17 13:33 DC 09/01/17 13:16 Sodium Chloride 1,000 ml @ 1,000 mls/hr 1X ONCE IV 09/01/17 15:15 09/01/17 16:14 DC 09/01/17 15:36 Famotidine (Pepcid) 20 mg QHS PO 09/01/17 21:00 09/01/17 22:06 Insulin Detemir (Levemir) 20 units QHS SQ 09/01/17 21:00 09/01/17 22:09 Insulin Aspart (NovoLOG) 0-9 UNITS TIDWMEALS SQ 09/01/17 17:00 09/02/17 08:51 Insulin Aspart (NovoLOG) 10 units BIDWMEALS SQ 09/01/17 17:00 09/02/17 08:51 Magnesium Sulfate/ Dextrose 50 ml @ 25 mls/hr 1X ONCE IV 09/01/17 16:30 09/01/17 18:29 DC 09/01/17 16:53 Al Hydroxide/Mg Hydroxide (Mylanta Plus Xs) 30 ml 1X ONCE PO 09/01/17 16:30 09/01/17 16:31 DC 09/01/17 16:54 Albuterol Sulfate (Ventolin Neb Soln) 2.5 mg RTQID NEB 09/01/17 20:00 09/01/17 20:00 DC 09/01/17 17:35 Imaging: Imaging: CXR IMPRESSION: No acute cardiopulmonary process. PE: GEN: NAD HEENT: Atraumatic, PERRL LUNGS: CTAB anteriorly HEART: RRR, chest NTTP ABD: NABS, S/ND/NT EXTREMITY: No edema SKIN: No rashes, no jaundice NEURO/PSYCH: A & O 3 A/P: A/P: Atypical CP -occurs randomly, sometimes w/ radiation between shoulders -has had occasional bloating, early satiety -previous cardiac workup neg DM, non-compliance CRC screen -no previous colonoscopy -- Will review w/ Dr. Aguilar - ?try PPI ?EGD - symptoms not obviously GERD- related KARTIK MARK Sep 02, 2017 09:42
--- NOTE | 2017-09-02 10:13 | PDOC2 ---
BOBY LUNA [employer]PUT[employer] 09/02/17 1013: CARDIAC CONSULT DATE OF CONSULT Date of Consult DATE: 09/02/17 TIME: 09:51 REASON FOR CONSULT Reason for Consult: CP REFERRING PHYSICIAN Referring Physician: Mario Alberto SOURCE Source: Chart review, Patient HISTORY OF PRESENT ILLNESS HISTORY OF PRESENT ILLNESS This is a pleasant 51 yo female admitted for complains of dizziness and mid chest discomfort. Reports that she was standing up at work when she felt lightheaded preceded by blurry vision, slightly diaphoretic and event lasted <2 minutes. Reports that lately she has been urinating more and with dry mouth and tries to keep up with hydration. She has DM and on insulin therapy but has stopped this due to lack of funds. Positive for lower mid chest tightness at focal point near epigastric junction and sensation of feeling like choking at times. She is significant for recent cardiac workup in which ischemia has been ruled out. Reports no frequent dizziness. Positive for night snoring but no witnessed of apnea. As an inpt she was noted with SB in the mid 40s while asleep but otherwise in the 70s. So far at this time she does not take any medications but continues to smoke tobacco. She was also started on PPI in 2016 and was never continued when she got discharged. Denies SOA, VALDEZ, palpitations, nausea vomiting or diarrhea. PAST MEDICAL HISTORY Past Medical History Cardiovascular: HTN, HLP Pulmonary: Asthma CENTRAL NERVOUS SYSTEM: Other (No pertinent history) GI: GERD Heme/Onc: No pertinent hx Hepatobiliary: No pertinent hx Psych: Anxiety, Depression, Other (suicidal ideation) Musculoskeletal: Other (morbid obesity) Rheumatologic: No pertinent hx Infectious disease: No pertinent hx ENT: No pertinent hx Renal/: UTI Endocrine: Diabetes (2) Dermatology: No pertinent hx PAST SURGICAL HISTORY Past Surgical History (x5), Tonsillectomy FAMILY HISTORY Family History noncontributory, adopted SOCIAL HISTORY Social History Smoke: <1 pack per day ALCOHOL: none Drugs: None Lives: with Family CURRENT MEDICATIONS CURRENT MEDICATIONS Current Medications Medications (Trade) Dose Ordered Sig/Juan Route PRN Reason Start Time Stop Time Status Last Admin Dose Admin Sodium Chloride 1,000 ml @ 1,000 mls/hr Q1H IV 09/01/17 12:34 09/01/17 13:33 DC 09/01/17 13:16 Sodium Chloride 1,000 ml @ 1,000 mls/hr 1X ONCE IV 09/01/17 15:15 09/01/17 16:14 DC 09/01/17 15:36 Famotidine (Pepcid) 20 mg QHS PO 09/01/17 21:00 09/01/17 22:06 Insulin Detemir (Levemir) 20 units QHS SQ 09/01/17 21:00 09/01/17 22:09 Insulin Aspart (NovoLOG) 0-9 UNITS TIDWMEALS SQ 09/01/17 17:00 09/02/17 08:51 Insulin Aspart (NovoLOG) 10 units BIDWMEALS SQ 09/01/17 17:00 09/02/17 08:51 Magnesium Sulfate/ Dextrose 50 ml @ 25 mls/hr 1X ONCE IV 09/01/17 16:30 09/01/17 18:29 DC 09/01/17 16:53 Al Hydroxide/Mg Hydroxide (Mylanta Plus Xs) 30 ml 1X ONCE PO 09/01/17 16:30 09/01/17 16:31 DC 09/01/17 16:54 Albuterol Sulfate (Ventolin Neb Soln) 2.5 mg RTQID NEB 09/01/17 20:00 09/01/17 20:00 DC 09/01/17 17:35 ALLERGIES ALLERGIES: Coded Allergies: chocolate flavor (Verified Allergy, Intermediate, Hives, 07/02/17) lavender (Lavandula angustifolia) (Verified Allergy, Intermediate, Hives, 07/02/17) oxycodone (Unverified Adverse Reaction, Intermediate, 12/06/15) " NAUSEA, VOMITING, LIGHTHEADED" ROS Review of System 14 point ROS evaluated with pertinent positives noted per HPI PHYSICAL EXAM General: Alert, Oriented X3, Cooperative, No acute distress HEENT: Atraumatic, Mucous membr. moist/pink Lungs: Clear to auscultation, Normal air movement Heart: Regular rate (SR), Normal S1, Normal S2, Other (2/6 systolic murmur to LLS border) Abdomen: Soft, No tenderness Extremities: No cyanosis, No edema Skin: No breakdown, No significant lesion Neuro: Normal tone, Sensation intact Psych/Mental Status: Mental status NL, Mood NL MUSCULOSKELETAL: Full range of motion without pain VITALS VITALS Vital Signs Date Time Temp Pulse Resp B/P (MAP) Pulse Ox O2 Delivery O2 Flow Rate FiO2 09/02/17 06:55 98.6 62 17 143/59 (87) 95 Room Air 98.6 LABS Lab: Laboratory Tests Test 09/01/17 12:41 09/01/17 12:42 09/01/17 13:10 09/01/17 17:35 Urine Collection Type Void Urine Color Yellow Urine Clarity Clear Urine pH 5.5 Urine Specific [place] >=1.030 Urine Protein Negative mg/dL (NEG-TRACE) Urine Glucose (UA) >=1000 mg/dL (NEG) Urine Ketones (Stick) Trace mg/dL (NEG) Urine Blood Negative (NEG) Urine Nitrite Negative (NEG) Urine Bilirubin Small (NEG) Urine Urobilinogen Dipstick 0.2 mg/dL (0.2 mg/dL) Urine Leukocyte Esterase Small (NEG) Urine RBC Occ /HPF (0-2) Urine WBC 11-20 /HPF (0-4) Urine Squamous Epithelial Cells Mod /LPF Urine Bacteria Moderate /HPF (0-FEW) Urine Hyaline Casts Moderate /HPF Urine Mucus Marked /LPF Urine Test Negative (NEG) Urine Opiates Screen Neg (NEG) Urine Methadone Screen Neg (NEG) Urine Barbiturates Neg (NEG) Urine Phencyclidine Screen Neg (NEG) Urine Amphetamine/Methamphetamine Neg (NEG) Urine Benzodiazepines Screen Neg (NEG) Urine Cocaine Screen Neg (NEG) Urine Cannabinoids Screen Neg (NEG) Urine Ethyl Alcohol Neg (NEG) Bedside Urine HCG, Qualitative Hcg negative (Negative) White Blood Count 5.4 x10^3/uL (4.0-11.0) Red Blood Count 4.67 x10^6/uL (3.50-5.40) Hemoglobin 12.4 g/dL (12.0-15.5) Hematocrit 37.9 % (36.0-47.0) Mean Corpuscular Volume 81 fL (79-100) Mean Corpuscular Hemoglobin 27 pg (25-35) Mean Corpuscular Hemoglobin Concent 33 g/dL (31-37) Red Cell Distribution Width 14.8 % (11.5-14.5) Platelet Count 338 x10^3/uL (140-400) Neutrophils (%) (Auto) 51 % (31-73) Lymphocytes (%) (Auto) 41 % (24-48) Monocytes (%) (Auto) 6 % (0-9) Eosinophils (%) (Auto) 1 % (0-3) Basophils (%) (Auto) 1 % (0-3) Neutrophils # (Auto) 2.7 x10^3uL (1.8-7.7) Lymphocytes # (Auto) 2.2 x10^3/uL (1.0-4.8) Monocytes # (Auto) 0.3 x10^3/uL (0.0-1.1) Eosinophils # (Auto) 0.1 x10^3/uL (0.0-0.7) Basophils # (Auto) 0.0 x10^3/uL (0.0-0.2) Sodium Level 133 mmol/L (136-145) Potassium Level 4.2 mmol/L (3.5-5.1) Chloride Level 99 mmol/L (98-107) Carbon Dioxide Level 25 mmol/L (21-32) Anion Gap 9 (6-14) Blood Urea Nitrogen 19 mg/dL (7-20) Creatinine 1.2 mg/dL (0.6-1.0) Estimated GFR (Cockcroft-Gault) 57.8 Glucose Level 358 mg/dL (70-99) Calcium Level 9.4 mg/dL (8.5-10.1) Magnesium Level 1.7 mg/dL (1.8-2.4) Total Bilirubin 0.1 mg/dL (0.2-1.0) Direct Bilirubin 0.1 mg/dL (0.0-0.2) Aspartate Amino Transf (AST/SGOT) 19 U/L (15-37) Alanine Aminotransferase (ALT/SGPT) 32 U/L (14-59) Alkaline Phosphatase 81 U/L (46-116) Creatine Kinase 183 U/L (26-192) Creatine Kinase MB (Mass) 1.8 ng/mL (0.0-3.6) Creatine Kinase MB Relative Index 1.0 % (0-4) Troponin I Quantitative < 0.017 ng/mL (0.000-0.055) SO-Zfn-[id number]-Type Natriuretic Peptide 71 pg/mL (0-124) Total Protein 8.3 g/dL (6.4-8.2) Albumin 3.4 g/dL (3.4-5.0) Lipase 190 U/L (73-393) Thyroid Stimulating Hormone (TSH) 0.591 uIU/mL (0.358-3.74) Glucose (Fingerstick) 191 mg/dL (70-99) Test 09/01/17 20:55 09/02/17 04:00 Troponin I Quantitative < 0.017 ng/mL (0.000-0.055) < 0.017 ng/mL (0.000-0.055) White Blood Count 4.5 x10^3/uL (4.0-11.0) Red Blood Count 4.12 x10^6/uL (3.50-5.40) Hemoglobin 11.0 g/dL (12.0-15.5) Hematocrit 33.7 % (36.0-47.0) Mean Corpuscular Volume 82 fL (79-100) Mean Corpuscular Hemoglobin 27 pg (25-35) Mean Corpuscular Hemoglobin Concent 33 g/dL (31-37) Red Cell Distribution Width 14.7 % (11.5-14.5) Platelet Count 297 x10^3/uL (140-400) Neutrophils (%) (Auto) 40 % (31-73) Lymphocytes (%) (Auto) 53 % (24-48) Monocytes (%) (Auto) 5 % (0-9) Eosinophils (%) (Auto) 2 % (0-3) Basophils (%) (Auto) 1 % (0-3) Neutrophils # (Auto) 1.8 x10^3uL (1.8-7.7) Lymphocytes # (Auto) 2.4 x10^3/uL (1.0-4.8) Monocytes # (Auto) 0.2 x10^3/uL (0.0-1.1) Eosinophils # (Auto) 0.1 x10^3/uL (0.0-0.7) Basophils # (Auto) 0.0 x10^3/uL (0.0-0.2) Sodium Level 135 mmol/L (136-145) Potassium Level 4.2 mmol/L (3.5-5.1) Chloride Level 103 mmol/L (98-107) Carbon Dioxide Level 26 mmol/L (21-32) Anion Gap 6 (6-14) Blood Urea Nitrogen 14 mg/dL (7-20) Creatinine 1.0 mg/dL (0.6-1.0) Estimated GFR (Cockcroft-Gault) 71.3 Glucose Level 254 mg/dL (70-99) Calcium Level 8.6 mg/dL (8.5-10.1) ECHOCARDIOGRAM ECHOCARDIOGRAM <Conclusion> Left ventricle systolic function is normal. The Ejection Fraction is 55-60%. There is normal LV segmental wall motion. Doppler and Color Flow revealed mild tricuspid regurgitation.There is mild pulmonary hypertension.The PA pressure was estimated at 40 mmHg. DATE: 01/07/17 1602 STRESS TEST STRESS TEST Conclusion 1. No EKG evidence of stressed induced ischemia. 2. Nuclear imaging shows normal stress scans. No evidence of ischemia or infarct. 3. Normal left ventricular systolic function with an ejection fraction of greater than 70%. 4. Low risk Lexiscan nuclear stress test. DATE: 07/02/17 1405 ASSESSMENT/PLAN ASSESSMENT/PLAN 1. Atypical Chest pain: likely GI 2. Asymptomatic SB: sleep induced. Suspecting uncontrolled RUPERTO 3. Tobaccoism 4. Morbid obesity: BMI 38 5. Presyncope: doubt arrhythmia, suspect due more to dehydration with persistent hyperglycemia 6. DM2: no coverage. Uncontrolled 7. Noncompliance: has not been on any routine meds 8. Moderate pulmonary HTN; suspecting undiagnosed RUPERTO. 9. HTN: controlled 10. HLP: Will need statin Recommendations 1. Follow GI recommendation 2. Smoking cessation, wt loss, discussed treatment compliance. 3. Pt will need ACEi/statin/ASA. Will defer this to PCP. 4. Will need outpt RUPERTO workup 5. Nothing further at this time. Problems: YANIRA JAIN MD 09/02/17 5774: CARDIAC CONSULT ALLERGIES ALLERGIES: Coded Allergies: chocolate flavor (Verified Allergy, Intermediate, Hives, 07/02/17) lavender (Lavandula angustifolia) (Verified Allergy, Intermediate, Hives, 07/02/17) oxycodone (Unverified Adverse Reaction, Intermediate, 12/06/15) " NAUSEA, VOMITING, LIGHTHEADED" ASSESSMENT/PLAN ASSESSMENT/PLAN Patient seen and examined. Agree with INFORMATION TECHNOLOGY DIRECTOR's assessment and plan. Chest pain with atypical features and most probably GI etiology. Myocardial infarction ruled out. Recent Lexiscan nuclear stress test did not show any significant ischemia. Sinus bradycardia vagally mediated. No further cardiac workup is indicated at this time. Thank you for your consultation. Problems: BOBY LUNA APRN Sep 02, 2017 10:13 YANIRA JAIN MD Sep 02, 2017 17:56
[2017-09-02 10:36] VITALS: BP 129/59
[2017-09-02 14:38] VITALS: BP 146/75
[2017-09-02] MEDS ORDERED: PANT40TA3 PO (14:51)
--- NOTE | 2017-09-02 14:55 | PDOC ---
PROGRESS NOTES Chief Complaint Chief Complaint 1. Chest pain, - NORMAL TTE and MPI Jun 2017, 2. Obesity - BMI 40 3. GERD, acute abd pain 4. DM2 on insulin,. uncontrolled non compliant 5. Smoker History of Present Illness History of Present Illness Admitted start PPI plan on DC Rec EGD, she is reluctant may DC home tonight with BID PPI for 2 months if she prefers to f.u outpatient Needs to lose linda cont home insulin regimen Needs a PCP Vitals Vitals Vital Signs Date Time Temp Pulse Resp B/P (MAP) Pulse Ox O2 Delivery O2 Flow Rate FiO2 09/02/17 14:38 98.2 82 19 146/75 (98) 99 Room Air 98.2 Physical Exam General: Alert, Oriented X3, Cooperative, No acute distress Heart: Regular rate (SR), Normal S1, Normal S2, Other (2/6 systolic murmur to LLS border) Lungs: Clear Abdomen: Soft, No tenderness Extremities: No cyanosis, No edema Skin: No breakdown, No significant lesion Labs LABS Laboratory Tests Test 09/01/17 17:35 09/01/17 20:55 09/02/17 04:00 Glucose (Fingerstick) 191 mg/dL (70-99) Troponin I Quantitative < 0.017 ng/mL (0.000-0.055) < 0.017 ng/mL (0.000-0.055) White Blood Count 4.5 x10^3/uL (4.0-11.0) Red Blood Count 4.12 x10^6/uL (3.50-5.40) Hemoglobin 11.0 g/dL (12.0-15.5) Hematocrit 33.7 % (36.0-47.0) Mean Corpuscular Volume 82 fL (79-100) Mean Corpuscular Hemoglobin 27 pg (25-35) Mean Corpuscular Hemoglobin Concent 33 g/dL (31-37) Red Cell Distribution Width 14.7 % (11.5-14.5) Platelet Count 297 x10^3/uL (140-400) Neutrophils (%) (Auto) 40 % (31-73) Lymphocytes (%) (Auto) 53 % (24-48) Monocytes (%) (Auto) 5 % (0-9) Eosinophils (%) (Auto) 2 % (0-3) Basophils (%) (Auto) 1 % (0-3) Neutrophils # (Auto) 1.8 x10^3uL (1.8-7.7) Lymphocytes # (Auto) 2.4 x10^3/uL (1.0-4.8) Monocytes # (Auto) 0.2 x10^3/uL (0.0-1.1) Eosinophils # (Auto) 0.1 x10^3/uL (0.0-0.7) Basophils # (Auto) 0.0 x10^3/uL (0.0-0.2) Sodium Level 135 mmol/L (136-145) Potassium Level 4.2 mmol/L (3.5-5.1) Chloride Level 103 mmol/L (98-107) Carbon Dioxide Level 26 mmol/L (21-32) Anion Gap 6 (6-14) Blood Urea Nitrogen 14 mg/dL (7-20) Creatinine 1.0 mg/dL (0.6-1.0) Estimated GFR (Cockcroft-Gault) 71.3 Glucose Level 254 mg/dL (70-99) Calcium Level 8.6 mg/dL (8.5-10.1) Review of Systems Review of Systems abdominal pain Assessment and Plan Assessmemt and Plan Problems Medical Problems: (1) Chest pain Status: Acute Problems: Comment Review of Relevant I have reviewed the following items aidan (where applicable) has been applied. Labs Laboratory Tests Test 09/01/17 12:41 09/01/17 12:42 09/01/17 13:10 09/01/17 17:35 Urine Collection Type Void Urine Color Yellow Urine Clarity Clear Urine pH 5.5 Urine Specific [place] >=1.030 Urine Protein Negative mg/dL (NEG-TRACE) Urine Glucose (UA) >=1000 mg/dL (NEG) Urine Ketones (Stick) Trace mg/dL (NEG) Urine Blood Negative (NEG) Urine Nitrite Negative (NEG) Urine Bilirubin Small (NEG) Urine Urobilinogen Dipstick 0.2 mg/dL (0.2 mg/dL) Urine Leukocyte Esterase Small (NEG) Urine RBC Occ /HPF (0-2) Urine WBC 11-20 /HPF (0-4) Urine Squamous Epithelial Cells Mod /LPF Urine Bacteria Moderate /HPF (0-FEW) Urine Hyaline Casts Moderate /HPF Urine Mucus Marked /LPF Urine Test Negative (NEG) Urine Opiates Screen Neg (NEG) Urine Methadone Screen Neg (NEG) Urine Barbiturates Neg (NEG) Urine Phencyclidine Screen Neg (NEG) Urine Amphetamine/Methamphetamine Neg (NEG) Urine Benzodiazepines Screen Neg (NEG) Urine Cocaine Screen Neg (NEG) Urine Cannabinoids Screen Neg (NEG) Urine Ethyl Alcohol Neg (NEG) Bedside Urine HCG, Qualitative Hcg negative (Negative) White Blood Count 5.4 x10^3/uL (4.0-11.0) Red Blood Count 4.67 x10^6/uL (3.50-5.40) Hemoglobin 12.4 g/dL (12.0-15.5) Hematocrit 37.9 % (36.0-47.0) Mean Corpuscular Volume 81 fL (79-100) Mean Corpuscular Hemoglobin 27 pg (25-35) Mean Corpuscular Hemoglobin Concent 33 g/dL (31-37) Red Cell Distribution Width 14.8 % (11.5-14.5) Platelet Count 338 x10^3/uL (140-400) Neutrophils (%) (Auto) 51 % (31-73) Lymphocytes (%) (Auto) 41 % (24-48) Monocytes (%) (Auto) 6 % (0-9) Eosinophils (%) (Auto) 1 % (0-3) Basophils (%) (Auto) 1 % (0-3) Neutrophils # (Auto) 2.7 x10^3uL (1.8-7.7) Lymphocytes # (Auto) 2.2 x10^3/uL (1.0-4.8) Monocytes # (Auto) 0.3 x10^3/uL (0.0-1.1) Eosinophils # (Auto) 0.1 x10^3/uL (0.0-0.7) Basophils # (Auto) 0.0 x10^3/uL (0.0-0.2) Sodium Level 133 mmol/L (136-145) Potassium Level 4.2 mmol/L (3.5-5.1) Chloride Level 99 mmol/L (98-107) Carbon Dioxide Level 25 mmol/L (21-32) Anion Gap 9 (6-14) Blood Urea Nitrogen 19 mg/dL (7-20) Creatinine 1.2 mg/dL (0.6-1.0) Estimated GFR (Cockcroft-Gault) 57.8 Glucose Level 358 mg/dL (70-99) Hemoglobin A1c 10.8 % (4.8-5.6) Calcium Level 9.4 mg/dL (8.5-10.1) Magnesium Level 1.7 mg/dL (1.8-2.4) Total Bilirubin 0.1 mg/dL (0.2-1.0) Direct Bilirubin 0.1 mg/dL (0.0-0.2) Aspartate Amino Transf (AST/SGOT) 19 U/L (15-37) Alanine Aminotransferase (ALT/SGPT) 32 U/L (14-59) Alkaline Phosphatase 81 U/L (46-116) Creatine Kinase 183 U/L (26-192) Creatine Kinase MB (Mass) 1.8 ng/mL (0.0-3.6) Creatine Kinase MB Relative Index 1.0 % (0-4) Troponin I Quantitative < 0.017 ng/mL (0.000-0.055) UH-Qyb-W-Type Natriuretic Peptide 71 pg/mL (0-124) Total Protein 8.3 g/dL (6.4-8.2) Albumin 3.4 g/dL (3.4-5.0) Lipase 190 U/L (73-393) Thyroid Stimulating Hormone (TSH) 0.591 uIU/mL (0.358-3.74) Glucose (Fingerstick) 191 mg/dL (70-99) Test 09/01/17 20:55 09/02/17 04:00 Troponin I Quantitative < 0.017 ng/mL (0.000-0.055) < 0.017 ng/mL (0.000-0.055) White Blood Count 4.5 x10^3/uL (4.0-11.0) Red Blood Count 4.12 x10^6/uL (3.50-5.40) Hemoglobin 11.0 g/dL (12.0-15.5) Hematocrit 33.7 % (36.0-47.0) Mean Corpuscular Volume 82 fL (79-100) Mean Corpuscular Hemoglobin 27 pg (25-35) Mean Corpuscular Hemoglobin Concent 33 g/dL (31-37) Red Cell Distribution Width 14.7 % (11.5-14.5) Platelet Count 297 x10^3/uL (140-400) Neutrophils (%) (Auto) 40 % (31-73) Lymphocytes (%) (Auto) 53 % (24-48) Monocytes (%) (Auto) 5 % (0-9) Eosinophils (%) (Auto) 2 % (0-3) Basophils (%) (Auto) 1 % (0-3) Neutrophils # (Auto) 1.8 x10^3uL (1.8-7.7) Lymphocytes # (Auto) 2.4 x10^3/uL (1.0-4.8) Monocytes # (Auto) 0.2 x10^3/uL (0.0-1.1) Eosinophils # (Auto) 0.1 x10^3/uL (0.0-0.7) Basophils # (Auto) 0.0 x10^3/uL (0.0-0.2) Sodium Level 135 mmol/L (136-145) Potassium Level 4.2 mmol/L (3.5-5.1) Chloride Level 103 mmol/L (98-107) Carbon Dioxide Level 26 mmol/L (21-32) Anion Gap 6 (6-14) Blood Urea Nitrogen 14 mg/dL (7-20) Creatinine 1.0 mg/dL (0.6-1.0) Estimated GFR (Cockcroft-Gault) 71.3 Glucose Level 254 mg/dL (70-99) Calcium Level 8.6 mg/dL (8.5-10.1) Laboratory Tests Test 09/01/17 17:35 09/01/17 20:55 09/02/17 04:00 Glucose (Fingerstick) 191 mg/dL (70-99) Troponin I Quantitative < 0.017 ng/mL (0.000-0.055) < 0.017 ng/mL (0.000-0.055) White Blood Count 4.5 x10^3/uL (4.0-11.0) Red Blood Count 4.12 x10^6/uL (3.50-5.40) Hemoglobin 11.0 g/dL (12.0-15.5) Hematocrit 33.7 % (36.0-47.0) Mean Corpuscular Volume 82 fL (79-100) Mean Corpuscular Hemoglobin 27 pg (25-35) Mean Corpuscular Hemoglobin Concent 33 g/dL (31-37) Red Cell Distribution Width 14.7 % (11.5-14.5) Platelet Count 297 x10^3/uL (140-400) Neutrophils (%) (Auto) 40 % (31-73) Lymphocytes (%) (Auto) 53 % (24-48) Monocytes (%) (Auto) 5 % (0-9) Eosinophils (%) (Auto) 2 % (0-3) Basophils (%) (Auto) 1 % (0-3) Neutrophils # (Auto) 1.8 x10^3uL (1.8-7.7) Lymphocytes # (Auto) 2.4 x10^3/uL (1.0-4.8) Monocytes # (Auto) 0.2 x10^3/uL (0.0-1.1) Eosinophils # (Auto) 0.1 x10^3/uL (0.0-0.7) Basophils # (Auto) 0.0 x10^3/uL (0.0-0.2) Sodium Level 135 mmol/L (136-145) Potassium Level 4.2 mmol/L (3.5-5.1) Chloride Level 103 mmol/L (98-107) Carbon Dioxide Level 26 mmol/L (21-32) Anion Gap 6 (6-14) Blood Urea Nitrogen 14 mg/dL (7-20) Creatinine 1.0 mg/dL (0.6-1.0) Estimated GFR (Cockcroft-Gault) 71.3 Glucose Level 254 mg/dL (70-99) Calcium Level 8.6 mg/dL (8.5-10.1) Medications Current Medications Sodium Chloride 1,000 ml @ 1,000 mls/hr Q1H IV Last administered on 13:16; Start 09/01/17 at 12:34; Stop 09/01/17 at 13:33; Status DC Sodium Chloride 1,000 ml @ 1,000 mls/hr 1X ONCE IV Last administered on 09/01 15:36; Start 09/01/17 at 15:15; Stop 09/01/17 at 16:14; Status DC Ondansetron HCl (Zofran) 4 mg PRN Q8HRS PRN IV NAUSEA/VOMITING; Start at 15:15; Stop 09/01/17 at 16:10; Status DC Ondansetron HCl (Zofran) 4 mg PRN Q6HRS PRN IV NAUSEA/VOMITING; Start at 16:15; Stop 09/02/17 at 16:14 Famotidine (Pepcid) 20 mg QHS PO Last administered on 09/01/17 22:06; Start 09/01/17 at 21:00; Stop 09/02/17 at 14:35; Status DC Insulin Detemir (Levemir) 20 units QHS SQ Last administered on 09/01/17 22:09 ; Start 09/01/17 at 21:00 Insulin Aspart (NovoLOG) 0-9 UNITS TIDWMEALS SQ Last administered on 12:41; Start 09/01/17 at 17:00 Dextrose (Dextrose 50%-Water Syringe) 12.5 gm PRN Q15MIN PRN IV SEE COMMENTS; Start 09/01/17 at 16:15 Insulin Aspart (NovoLOG) 10 units BIDWMEALS SQ Last administered on 09/02/17 08:51; Start 09/01/17 at 17:00 Magnesium Sulfate/ Dextrose 50 ml @ 25 mls/hr 1X ONCE IV Last administered on 09/01/17 16:53; Start 09/01/17 at 16:30; Stop 09/01/17 at 18:29; Status DC Calcium Carbonate/ Glycine (Tums) 500 mg PRN AFTMEALHC PRN PO INDIGESTION; Start 09/01/17 at 16:15 Al Hydroxide/Mg Hydroxide (Mylanta Plus Xs) 30 ml PRN Q2HR PRN PO HEARTBURN / GAS; Start 09/01/17 at 16:15 Al Hydroxide/Mg Hydroxide (Mylanta Plus Xs) 30 ml 1X ONCE PO Last administered on 09/01/17 16:54; Start 09/01/17 at 16:30; Stop 09/01/17 at 16 :31; Status DC Zolpidem Tartrate (Ambien) 5 mg PRN QHS PRN PO INSOMNIA; Start 09/01/17 at 16: 15 Nicotine (Nicoderm Cq 21mg) 1 patch PRN DAILY PRN TD SMOKING CESSATION; Start 09/01/17 at 16:15 Ibuprofen (Motrin) 600 mg PRN Q6HRS PRN PO INFLAMMATION; Start 09/01/17 at 16: 15 Acetaminophen (Tylenol) 500 mg PRN Q6HRS PRN PO MILD PAIN / TEMP; Start at 16:15 Non-Formulary Medication 2 puff QID INH ; Start 09/01/17 at 17:00; Status UNV Albuterol Sulfate (Ventolin Neb Soln) 2.5 mg RTQID NEB Last administered on t 17:35; Start 09/01/17 at 20:00; Stop 09/01/17 at 20:00; Status DC Albuterol Sulfate (Ventolin Neb Soln) 2.5 mg STK-MED ONCE .ROUTE ; Start at 16:25; Stop 09/01/17 at 16:26; Status DC Albuterol Sulfate (Ventolin Neb Soln) 2.5 mg PRN QID PRN NEB WHEEZING; Start 09/02/17 at 06:00 Famotidine (Pepcid) 20 mg BID PO ; Start 09/02/17 at 21:00 Active Scripts Active Protonix (Pantoprazole Sodium) 40 Mg Tablet.dr 1 Tab PO BID Lantus Solostar (Insulin Glargine,Hum.rec.anlog) 100 Unit/1 Ml Insuln.pen 20 Unit SQ QHS Reported Novolog (Insulin Aspart) 100 Unit/1 Ml Cartridge 10 Unit SQ BIDWBKFT/GAUTAM Ibuprofen 400 Mg Tablet 400 Mg PO PRN Q6HRS PRN Women's Daily Formula Caplet (Multivits,Ca,Minerals/Iron/FA) 1 Each Tablet 1 Each PO Ventolin Hfa Inhaler (Albuterol Sulfate) 18 Gm Hfa.aer.ad 2 Puff INH QID Vitals/I & O Vital Sign - Last 24 Hours 09/01/17 09/01/17 09/01/17 09/01/17 15:38 16:42 17:37 18:14 Temp 98.3 98.3 Pulse 68 67 69 Resp 18 18 14 B/P (MAP) 154/72 (99) 140/63 (88) 137/62 (87) Pulse Ox 99 100 100 100 O2 Delivery Room Air Room Air Room Air Room Air 09/01/17 09/01/17 09/01/17 09/01/17 18:32 19:00 19:45 23:36 Temp 98.5 98.6 98.5 98.6 Pulse 83 73 Resp 16 16 B/P (MAP) 157/59 (91) 125/68 (87) Pulse Ox 96 98 O2 Delivery Room Air Room Air Room Air Room Air 09/02/17 09/02/17 09/02/17 09/02/17 03:30 06:55 08:00 10:36 Temp 98.4 98.6 97.6 98.4 98.6 97.6 Pulse 66 62 74 Resp 16 17 18 B/P (MAP) 134/44 (74) 143/59 (87) 129/59 (82) Pulse Ox 99 95 98 O2 Delivery Room Air Room Air Room Air Room Air 09/02/17 14:38 Temp 98.2 98.2 Pulse 82 Resp 19 B/P (MAP) 146/75 (98) Pulse Ox 99 O2 Delivery Room Air Intake and Output 09/01/17 09/01/17 09/02/17 15:00 23:00 07:00 Intake Total 1000 ml 1000 ml 270 ml Balance 1000 ml 1000 ml 270 ml TONYA ALAMO MD Sep 02, 2017 14:55
[2017-09-02] MEDS ORDERED: NICOTINE 14MG PATCH. TD PRN (15:00)
[2017-09-02] MEDS ORDERED: FAMOTIDINE 20 MG TABLET. PO SCH (21:00)
== END 2017-09-02 17:15 | disposition home or self-care (01) | DRG 392 ==
LOC: ER 12:32 → 6 SOUTH 15:05
PROVIDERS: ADMIT Internal Medicine; ATTEND Internal Medicine
DX: K21.9 Gastro-esophageal reflux disease without esophagitis (principal); Z68.41 Body mass index [BMI] 40.0-44.9, adult; N39.0 Urinary tract infection, site not specified; E11.42 Type 2 diabetes mellitus with diabetic polyneuropathy; I27.20 Pulmonary hypertension, unspecified; E66.01 Morbid (severe) obesity due to excess calories; E11.65 Type 2 diabetes mellitus with hyperglycemia; E78.5 Hyperlipidemia, unspecified; F17.210 Nicotine dependence, cigarettes, uncomplicated; F32.9 Major depressive disorder, single episode, unspecified; F41.9 Anxiety disorder, unspecified; I10 Essential (primary) hypertension; J44.9 Chronic obstructive pulmonary disease, unspecified; Z79.4 Long term (current) use of insulin; Z82.49 Family history of ischemic heart disease and other diseases of the circulatory system; Z91.19 Patient's noncompliance with other medical treatment and regimen; Z91.018 Allergy to other foods; Z91.09 Other allergy status, other than to drugs and biological substances; Z91.14 Patient's other noncompliance with medication regimen
CPT/HCPCS: 36415; 71010; 80048; 80076; 80307; 81001; 81025; 82553; 82962; 83036; 83690; 83735; 83880; 84443; 84484; 85025; 87086; 93005; 96361; 96365; J1815; J7030; J7060; J7613; 99285-25; G0479

== ENCOUNTER 2017-12-14 03:30 | Emergency (ER) | payer OTHER, BC | END 2017-12-14 04:48 | disposition home or self-care (01) | LOC: ER 03:30 | DX: M79.671 Pain in right foot (principal); J45.909 Unspecified asthma, uncomplicated; F32.9 Major depressive disorder, single episode, unspecified; K21.9 Gastro-esophageal reflux disease without esophagitis; E66.9 Obesity, unspecified; E11.40 Type 2 diabetes mellitus with diabetic neuropathy, unspecified; Z68.36 Body mass index [BMI] 36.0-36.9, adult; Z91.02 Food additives allergy status; Z88.5 Allergy status to narcotic agent; Z91.048 Other nonmedicinal substance allergy status | CPT/HCPCS: 73630; 99284 ==

== ENCOUNTER 2018-02-17 23:41 | Emergency (ER) | payer OTHER ==
[2018-02-18 00:11] LABS: URINE HCG POC HCG NEGATIVE (Negative)
[2018-02-18 00:14] LABS: BILIRUBIN,URINE NEGATIVE (NEG); CLARITY,URINE CLEAR; COLOR,URINE YELLOW; GLUCOSE,URINE >=1000 mg/dL (NEG); NITRITE,URINE NEGATIVE (NEG); PH,URINE 6.5; PROTEIN,URINE NEGATIVE (NEG-TRACE); UROBILINOGEN,URINE 0.2 mg/dL (0.2 mg/dL)
[2018-02-18 00:27] LABS: ADD MAN DIFF? NO
[2018-02-18 00:30] LABS: BASO % 1 % (0-3); EOS # 0.2 x10^3/uL (0.0-0.7); EOS % 3 % (0-3); HEMOGLOBIN 12.4 g/dL (12.0-15.5); LYMPH # 2.6 x10^3/uL (1.0-4.8); LYMPH % 49 % (24-48); MEAN CORPUSCULAR HEMOGLOBIN 27 pg (25-35); MEAN CORPUSCULAR HGB CONC 34 g/dL (31-37); MEAN CORPUSCULAR VOLUME 80 fL (79-100); MONO # 0.2 x10^3/uL (0.0-1.1); MONO % 4 % (0-9); NEUT # 2.3 x10^3uL (1.8-7.7); NEUT % 44 % (31-73); PLATELET COUNT 318 x10^3/uL (140-400); RED BLOOD COUNT 4.61 x10^6/uL (3.50-5.40); RED CELL DISTRIBUTION WIDTH 14.2 % (11.5-14.5); WHITE BLOOD COUNT 5.3 x10^3/uL (4.0-11.0)
[2018-02-18] MEDS: KETOROLAC 30 MG/ML INJ. IV (00:33)
[2018-02-18] MEDS: METOCLOPRAMIDE HCL 10 MG/2 ML VIAL. IV (00:33)
[2018-02-18] MEDS: diphenhydrAMINE 50 MG/ML VIAL IVP (00:33)
[2018-02-18] MEDS: IV NORMAL SALINE 1000ML BAG 1,000 ML IV (00:34)
[2018-02-18] MEDS: INSULIN GLARGINE 300 UNITS/3 ML INSULN.PEN. SQ (00:36)
[2018-02-18 00:50] LABS: ANION GAP 10 (6-14); BLOOD UREA NITROGEN 17 mg/dL (7-20); BUN/CREATININE RATIO 14 (6-20); CALCIUM 8.7 mg/dL (8.5-10.1); CARBON DIOXIDE 28 mmol/L (21-32); CHLORIDE 100 mmol/L (98-107); CREATININE 1.2 mg/dL (0.6-1.0); GFR 57.5; GLUCOSE 309 mg/dL (70-99); POTASSIUM 3.8 mmol/L (3.5-5.1); SODIUM 138 mmol/L (136-145)
[2018-02-18 00:55] LABS: ALBUMIN 3.4 g/dL (3.4-5.0); ALBUMIN/GLOBULIN RATIO 0.7 (1.0-1.7); ALK PHOS 82 U/L (46-116); ALT (SGPT) 32 U/L (14-59); AST (SGOT) 19 U/L (15-37); TOTAL BILIRUBIN 0.2 mg/dL (0.2-1.0); TOTAL PROTEIN 8.1 g/dL (6.4-8.2)
[2018-02-18 00:56] LABS: BACTERIA,URINE FEW /HPF (0-FEW); RBC,URINE OCC /HPF (0-2); SQUAMOUS EPITHELIAL CELL,UR MANY /LPF; WBC,URINE 0 /HPF (0-4)
[2018-02-18 01:31] LABS: POC GLUCOSE 259 mg/dL (70-99)
[2018-02-18 01:31] LABS: POC GLUCOSE 297 mg/dL (70-99)
== END 2018-02-18 01:39 | disposition home or self-care (01) ==
LOC: ER 23:41
DX: E11.65 Type 2 diabetes mellitus with hyperglycemia (principal); Z91.14 Patient's other noncompliance with medication regimen; G43.909 Migraine, unspecified, not intractable, without status migrainosus; J45.909 Unspecified asthma, uncomplicated; F32.9 Major depressive disorder, single episode, unspecified; K21.9 Gastro-esophageal reflux disease without esophagitis; E66.9 Obesity, unspecified; Z79.4 Long term (current) use of insulin; Z68.37 Body mass index [BMI] 37.0-37.9, adult; Z88.5 Allergy status to narcotic agent; Z91.018 Allergy to other foods; Z91.048 Other nonmedicinal substance allergy status
CPT/HCPCS: 36415; 80053; 81001; 81025; 82962; 85025; 96361; 96372; 96374; 96375; 99284; J1200; J1815; J1885; J2765; J7030

== ENCOUNTER 2018-02-27 20:04 | Emergency (ER) | payer OTHER | END 2018-02-27 21:38 | disposition home or self-care (01) | LOC: ER 20:04 | DX: S46.911A Strain of unspecified muscle, fascia and tendon at shoulder and upper arm level, right arm, initial encounter (principal); J45.909 Unspecified asthma, uncomplicated; E11.9 Type 2 diabetes mellitus without complications; K21.9 Gastro-esophageal reflux disease without esophagitis; Z88.5 Allergy status to narcotic agent; Z88.8 Allergy status to other drugs, medicaments and biological substances; V89.2XXA Person injured in unspecified motor-vehicle accident, traffic, initial encounter; Y93.89 Activity, other specified; Y99.8 Other external cause status; Y92.89 Other specified places as the place of occurrence of the external cause | CPT/HCPCS: 73030; 99284 ==

== ENCOUNTER 2018-05-16 12:41 | Emergency (ER) | payer OTHER ==
[~2018-05-16] VITALS: Ht 167.6 cm; Wt 99.3 kg
[~2018-05-16 12:41] MED LIST changes: -METF-620 PO; +METF10003 PO; -METF500T4 PO; +METF500T5 PO; +METH35.4 TP; +NAPR-695 PO; +PANT40TA3 PO
[2018-05-16 13:52] VITALS: BP 170/78
[2018-05-16] MEDS ORDERED: CYCL5TAB PO (13:58)
[2018-05-16] MEDS ORDERED: IBUP-1060 PO (13:58)
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
== END 2018-05-16 14:24 | disposition home or self-care (01) ==
LOC: ER 12:41
DX: S16.1XXA Strain of muscle, fascia and tendon at neck level, initial encounter (principal); E11.9 Type 2 diabetes mellitus without complications; K21.9 Gastro-esophageal reflux disease without esophagitis; J45.909 Unspecified asthma, uncomplicated; Z88.5 Allergy status to narcotic agent; Z91.018 Allergy to other foods; V43.42XA Person boarding or alighting a car injured in collision with other type car, initial encounter; Y93.89 Activity, other specified; Y92.488 Other paved roadways as the place of occurrence of the external cause; Y99.8 Other external cause status
CPT/HCPCS: 99283

== ENCOUNTER 2018-12-27 04:50 | Emergency (ER) | payer SELFPAY ==
[~2018-12-27] VITALS: Ht 165.1 cm; Wt 100.2 kg
[~2018-12-27 04:50] MED LIST changes: +ALBU2.5V8 IH; +CYCL5TAB PO; +IBUP-1060 PO; -METF10003 PO; +METF10007 PO; +METF500T16 PO; -METF500T5 PO; -PROVENTIL HFA6.7 GM IH
--- NOTE | 2018-12-27 05:12 | PHYS DOC ---
Past Medical History Past Medical History: Asthma, Depression, Diabetes-Type II, GERD, Other Additional Past Medical Histor: gestational diabetes, obesity (VAHE SWEENEY DO) Past Surgical History: , Tonsillectomy, Other Additional Past Surgical Histo: x5 (VAHE SWEENEY DO) Smoking: Cigarettes, Less than 1pk/day Alcohol Use: None Drug Use: None (VAHE SWEENEY DO) Adult General Chief Complaint Chief Complaint: GI PROBLEM HPI HPI Patient is a 53 year old female who presents with burning and sharp chest discomfort like her usual reflux although this is worse than usual. No relief with Tums. No radiation of the discomfort. No nausea or vomiting. It became worse after she ate candy, sometimes it gets worse when she lays down. Patient relates a history of intermittent dyspnea on exertion but this is a long- standing issue and not any worse than usual. Symptoms are moderate to severe in intensity currently. Pain is just to the right of center, and has an occasional respirophasic component to it is well since it started. She reports occasional shortness of breath since this episode started. Patient denies any recent trauma , no travel, and no stasis, no known hypercoagulable state.[] (VAHE SWEENEY DO) Review of Systems Review of Systems Constitutional: Denies fever or chills [] Eyes: Denies change in visual acuity, redness, or eye pain [] HENT: Denies nasal congestion or sore throat [] Respiratory: Denies cough or shortness of breath [] Cardiovascular: No additional information not addressed in HPI [] GI: Denies abdominal pain, nausea, vomiting, bloody stools or diarrhea [] : Denies dysuria or hematuria [] Musculoskeletal: Denies back pain or joint pain [] Integument: Denies rash or skin lesions [] Neurologic: Denies headache, focal weakness or sensory changes [] Endocrine: Denies polyuria or polydipsia [] All other systems were reviewed and found to be within normal limits, except as documented in this note. (VAHE SWEENYE DO) Family History Family History Unknown family history since patient is adopted (VAHE SWEENEY DO) Current Medications Current Medications Current Medications Medications (Trade) Dose Ordered Sig/Juan Start Time Stop Time Status Last Admin Dose Admin Aspirin (Children'S Aspirin) 324 mg 1X ONCE 12/27/18 05:30 12/27/18 05:31 DC 12/27/18 05:33 324 MG Clonidine HCl (Catapres) 0.1 mg 1X ONCE 12/27/18 06:00 12/27/18 06:01 DC 12/27/18 05:57 0.1 MG Info (CONTRAST GIVEN -- Rx MONITORING) 1 each PRN DAILY PRN 12/27/18 06:45 12/29/18 06:44 Iohexol (Omnipaque 350 Mg/ml) 100 ml 1X ONCE 12/27/18 06:45 12/27/18 06:46 DC 12/27/18 06:53 100 ML Multi-Ingredient Mouthwash/Gargle (Gi Cocktail) 20 ml 1X ONCE 12/27/18 05:30 12/27/18 05:31 DC 12/27/18 05:30 20 ML (MATY GUTIERREZ DO) Allergies Allergies Allergies Coded Allergies Type Severity Reaction Last Updated Verified chocolate flavor Allergy Intermediate Hives 07/02/17 Yes lavender (Lavandula angustifolia) Allergy Intermediate Hives 07/02/17 Yes oxycodone Adverse Reaction Intermediate 12/06/15 No (MATY GUTIERREZ DO) Physical Exam Physical Exam Constitutional: Well developed, well nourished, mild discomfort, non-toxic appearance. [] HENT: Normocephalic, atraumatic, bilateral external ears normal, oropharynx moist, no oral exudates, nose normal. [] Eyes: PERRLA, EOMI, conjunctiva normal, no discharge. [] Neck: Normal range of motion, no tenderness, supple, no stridor. [] Cardiovascular:Heart rate regular rhythm, no murmur [] Lungs & Thorax: Bilateral breath sounds clear to auscultation [] Abdomen: Bowel sounds normal, soft, no tenderness, no masses, no pulsatile masses. [] Skin: Warm, dry, no erythema, no rash. [] Back: No tenderness, no CVA tenderness. [] Extremities: No tenderness, no cyanosis, no clubbing, ROM intact, no edema. [] Neurologic: Alert and oriented X 3, normal motor function, normal sensory function, no focal deficits noted. [] Psychologic: Affect normal, judgement normal, mood normal. [] (EIDENBERGVAHE DO) Current Patient Data Vital Signs Vital Signs Date Time Temp Pulse Resp B/P (MAP) Pulse Ox O2 Delivery O2 Flow Rate FiO2 12/27/18 07:21 64 15 148/85 (106) 99 Room Air 12/27/18 04:55 98.3 98.3 (MATY GUTIERREZ DO) Lab Values Laboratory Tests Test 12/27/18 05:05 White Blood Count 4.9 x10^3/uL (4.0-11.0) Red Blood Count 4.73 x10^6/uL (3.50-5.40) Hemoglobin 12.5 g/dL (12.0-15.5) Hematocrit 38.3 % (36.0-47.0) Mean Corpuscular Volume 81 fL (79-100) Mean Corpuscular Hemoglobin 27 pg (25-35) Mean Corpuscular Hemoglobin Concent 33 g/dL (31-37) Red Cell Distribution Width 14.2 % (11.5-14.5) Platelet Count 278 x10^3/uL (140-400) Neutrophils (%) (Auto) 42 % (31-73) Lymphocytes (%) (Auto) 49 % (24-48) H Monocytes (%) (Auto) 5 % (0-9) Eosinophils (%) (Auto) 2 % (0-3) Basophils (%) (Auto) 1 % (0-3) Neutrophils # (Auto) 2.1 x10^3uL (1.8-7.7) Lymphocytes # (Auto) 2.4 x10^3/uL (1.0-4.8) Monocytes # (Auto) 0.2 x10^3/uL (0.0-1.1) Eosinophils # (Auto) 0.1 x10^3/uL (0.0-0.7) Basophils # (Auto) 0.1 x10^3/uL (0.0-0.2) Prothrombin Time 12.8 SEC (11.7-14.0) Prothrombin Time INR 1.0 (0.8-1.1) D-Dimer (Roseanne) 0.69 ug/mlFEU (0.00-0.50) H Sodium Level 136 mmol/L (136-145) Potassium Level 4.1 mmol/L (3.5-5.1) Chloride Level 99 mmol/L (98-107) Carbon Dioxide Level 26 mmol/L (21-32) Anion Gap 11 (6-14) Blood Urea Nitrogen 14 mg/dL (7-20) Creatinine 1.1 mg/dL (0.6-1.0) H Estimated GFR (Cockcroft-Gault) 63.4 BUN/Creatinine Ratio 13 (6-20) Glucose Level 382 mg/dL (70-99) H Calcium Level 8.8 mg/dL (8.5-10.1) Magnesium Level 2.1 mg/dL (1.8-2.4) Total Bilirubin 0.2 mg/dL (0.2-1.0) Aspartate Amino Transferase (AST) 19 U/L (15-37) Alanine Aminotransferase (ALT) 31 U/L (14-59) Alkaline Phosphatase 80 U/L (46-116) Troponin I Quantitative < 0.017 ng/mL (0.000-0.055) BQ-Lxs-I-Type Natriuretic Peptide 80 pg/mL (0-124) Total Protein 8.2 g/dL (6.4-8.2) Albumin 3.4 g/dL (3.4-5.0) Albumin/Globulin Ratio 0.7 (1.0-1.7) L Lipase 232 U/L (73-393) Laboratory Tests 12/27/18 05:05 Laboratory Tests 12/27/18 05:05 (MATY GUTIERREZ DO) Lab Values Laboratory Tests Test 12/27/18 05:05 White Blood Count 4.9 x10^3/uL (4.0-11.0) Red Blood Count 4.73 x10^6/uL (3.50-5.40) Hemoglobin 12.5 g/dL (12.0-15.5) Hematocrit 38.3 % (36.0-47.0) Mean Corpuscular Volume 81 fL (79-100) Mean Corpuscular Hemoglobin 27 pg (25-35) Mean Corpuscular Hemoglobin Concent 33 g/dL (31-37) Red Cell Distribution Width 14.2 % (11.5-14.5) Platelet Count 278 x10^3/uL (140-400) Neutrophils (%) (Auto) 42 % (31-73) Lymphocytes (%) (Auto) 49 % (24-48) H Monocytes (%) (Auto) 5 % (0-9) Eosinophils (%) (Auto) 2 % (0-3) Basophils (%) (Auto) 1 % (0-3) Neutrophils # (Auto) 2.1 x10^3uL (1.8-7.7) Lymphocytes # (Auto) 2.4 x10^3/uL (1.0-4.8) Monocytes # (Auto) 0.2 x10^3/uL (0.0-1.1) Eosinophils # (Auto) 0.1 x10^3/uL (0.0-0.7) Basophils # (Auto) 0.1 x10^3/uL (0.0-0.2) Prothrombin Time 12.8 SEC (11.7-14.0) Prothrombin Time INR 1.0 (0.8-1.1) D-Dimer (Roseanne) 0.69 ug/mlFEU (0.00-0.50) H Sodium Level 136 mmol/L (136-145) Potassium Level 4.1 mmol/L (3.5-5.1) Chloride Level 99 mmol/L (98-107) Carbon Dioxide Level 26 mmol/L (21-32) Anion Gap 11 (6-14) Blood Urea Nitrogen 14 mg/dL (7-20) Creatinine 1.1 mg/dL (0.6-1.0) H Estimated GFR (Cockcroft-Gault) 63.4 BUN/Creatinine Ratio 13 (6-20) Glucose Level 382 mg/dL (70-99) H Calcium Level 8.8 mg/dL (8.5-10.1) Magnesium Level 2.1 mg/dL (1.8-2.4) Total Bilirubin 0.2 mg/dL (0.2-1.0) Aspartate Amino Transferase (AST) 19 U/L (15-37) Alanine Aminotransferase (ALT) 31 U/L (14-59) Alkaline Phosphatase 80 U/L (46-116) Troponin I Quantitative < 0.017 ng/mL (0.000-0.055) SV-Def-J-Type Natriuretic Peptide 80 pg/mL (0-124) Total Protein 8.2 g/dL (6.4-8.2) Albumin 3.4 g/dL (3.4-5.0) Albumin/Globulin Ratio 0.7 (1.0-1.7) L Lipase 232 U/L (73-393) Laboratory Tests 12/27/18 05:05 Laboratory Tests 12/27/18 05:05 (DANIKAJENNYVAHE GUTIERREZ ) EKG EKG EKG shows a sinus rhythm at 67 bpm, left axis deviation at -6, QTC is 402 ms, no ST elevations. Compared with the EKG of 09/01/2017. No acute changes are present area did interpreted by me at 0525[] ([facility]) Radiology/Procedures Radiology/Procedures Chest x-ray shows no infiltrate, no effusion, no pneumothorax, no acute changes when compared with 09/01/2017[] ([facility] Radiology/Procedures CT pulmonary angiogram with intravenous contrast with multiplanar 2D reformatted images CLINICAL HISTORY: Right-sided chest pain, elevated d-dimer. TECHNIQUE: CT pulmonary angiogram was performed as axial CT images obtained through the chest during the administration of intravenous contrast. 3D and MIP reformations and post-processing reconstructions were performed and interpreted. Dose lowering technique(s) such as automated exposure control, iterative reconstruction, and mA and/or KV adjustment for patient size was utilized for this examination. CONTRAST: 100 ml of Isovue-370. COMPARISON: CT scan of the chest dated July 02, 2017. FINDINGS: No acute pulmonary embolism is identified. The heart is not enlarged. There are atherosclerotic calcifications involving the aorta and left coronary artery. No aortic aneurysm or dissection is seen. The lungs are clear. No pleural effusion or pneumothorax is seen. No hilar, mediastinal or axillary lymphadenopathy is identified. There are small calcified mediastinal and right hilar lymph nodes consistent with chronic sequela of remote granulomatous disease. There is fatty infiltration of the liver. There are mild degenerative changes involving the spine. IMPRESSION: 1. No CT evidence for acute pulmonary embolism or other active cardiopulmonary disease. 2. Fatty infiltration of the liver. Impressions: PROCEDURE: PORTABLE CHEST 1V AP portable chest radiograph 12/27/2018 Clinical History: Chest pain. An AP erect portable digital radiograph of the chest was obtained. Comparison study is dated 09/01/2017. The cardiac and mediastinal silhouettes are within normal limits in size and configuration. No acute pulmonary infiltrate is seen. No pleural effusion or pneumothorax is noted. Degenerative changes are seen involving the thoracic spine and both shoulders. Impression: No acute abnormality is seen. (MATY GUTIERREZ DO) Course & Med Decision Making Course & Med Decision Making Pertinent Labs and Imaging studies reviewed. (See chart for details) ED course: Patient arrived, was placed in bed, and tolerated exam well. She was given aspirin as well as a GI cocktail. No significant change in the discomfort with the GI cocktail. She was noted to have an elevated blood pressure which continued to be elevated on serial exams. She was subsequently given clonidine for this. After the return of the elevated d-dimer, a CT angiogram was ordered. Patient care was endorsed to the oncoming physician at 6 AM with disposition pending. Medical decision making: Patient does not appear to have an ST elevation RI given no acute changes on her EKG from 2017. First set of cardiac enzymes are negative. No evidence of pneumonia or pneumothorax. This does not appear to be a thoracic aneurysm dissection, nor esophageal rupture. Evaluation for pulmonary embolism is still pending at the time of transfer of care.[] (VAHE SWEENEY DO) Course & Med Decision Making ED course: Evaluation reveals a 53-year-old obese female with diabetes with some atypical chest symptoms. Her workup here has been completely normal. Her blood sugar is elevated but she states that this is a common problem for her she 's had diabetes for 18 years. She's also had a stress test is recent as 5 months ago which was negative. She states she had stress test with very similar symptoms and they told her it was related to reflux. I do not believe this is a cardiac event. Think patient is stable for discharge home. (MATY GUTIERREZ DO) Dragon Disclaimer Dragon Disclaimer This electronic medical record was generated, in whole or in part, using a voice recognition dictation system. (VAHE SWEENEY DO) Departure Departure Impression: Primary Impression: Chest pain Additional Impression: GERD (gastroesophageal reflux disease) Referrals: NO PCP (PCP) Patient Instructions: Chest Pain (Nonspecific), Gastroesophageal Reflux Disease , Adult Additional Instructions: Return to the emergency department with any new or concerning symptoms Problem Qualifiers Primary Impression: Chest pain Chest pain type: unspecified Qualified Codes: R07.9 - Chest pain, unspecified Additional Impression: GERD (gastroesophageal reflux disease) Esophagitis presence: esophagitis presence not specified Qualified Codes: K21.9 - Gastro-esophageal reflux disease without esophagitis VAHE SWEENEY DO Dec 27, 2018 05:12 MATY GUTIERREZ DO Dec 27, 2018 07:38
[2018-12-27] MEDS ORDERED: LIDO:MAALOX 1:1 20 ML SINGLE DOSE. SWSW ONE (05:30)
[2018-12-27] MEDS ORDERED: ASPIRIN CHEWABLE 81 MG TABLET. PO ONE (05:30)
[2018-12-27 05:32] LABS: BASO # 0.1 x10^3/uL (0.0-0.2); BASO % 1 % (0-3); EOS # 0.1 x10^3/uL (0.0-0.7); EOS % 2 % (0-3); HEMATOCRIT 38.3 % (36.0-47.0); HEMOGLOBIN 12.5 g/dL (12.0-15.5); LYMPH # 2.4 x10^3/uL (1.0-4.8); LYMPH % 49 % (24-48); MEAN CORPUSCULAR HEMOGLOBIN 27 pg (25-35); MEAN CORPUSCULAR HGB CONC 33 g/dL (31-37); MEAN CORPUSCULAR VOLUME 81 fL (79-100); MONO # 0.2 x10^3/uL (0.0-1.1); MONO % 5 % (0-9); NEUT # 2.1 x10^3uL (1.8-7.7); NEUT % 42 % (31-73); PLATELET COUNT 278 x10^3/uL (140-400); RED BLOOD COUNT 4.73 x10^6/uL (3.50-5.40); RED CELL DISTRIBUTION WIDTH 14.2 % (11.5-14.5); WHITE BLOOD COUNT 4.9 x10^3/uL (4.0-11.0)
[2018-12-27 05:40] LABS: CALCIUM 8.8 mg/dL (8.5-10.1); CREATININE 1.1 mg/dL (0.6-1.0); GFR 63.4; POTASSIUM 4.1 mmol/L (3.5-5.1)
[2018-12-27 05:46] LABS: ALBUMIN 3.4 g/dL (3.4-5.0); ALBUMIN/GLOBULIN RATIO 0.7 (1.0-1.7); MAGNESIUM 2.1 mg/dL (1.8-2.4); TOTAL BILIRUBIN 0.2 mg/dL (0.2-1.0); TOTAL PROTEIN 8.2 g/dL (6.4-8.2)
[2018-12-27 05:47] LABS: PROTHROMBIN TIME PATIENT 12.8 SEC (11.7-14.0)
--- NOTE | 2018-12-27 05:53 | RAD ---
AP portable chest radiograph 12/27/2018 Clinical History: Chest pain. An AP erect portable digital radiograph of the chest was obtained. Comparison study is dated 09/01/2017. The cardiac and mediastinal silhouettes are within normal limits in size and configuration. No acute pulmonary infiltrate is seen. No pleural effusion or pneumothorax is noted. Degenerative changes are seen involving the thoracic spine and both shoulders. Impression: No acute abnormality is seen. Electronically signed by: Rashaad Oconnor MD (12/27/2018 5:50 AM) [facility]
[2018-12-27 05:58] LABS: D-DIMER 0.69 ug/mlFEU (0.00-0.50)
[2018-12-27] MEDS ORDERED: cloNIDine HCL 0.1 MG TABLET PO ONE (06:00)
[2018-12-27] MEDS ORDERED: IOHEXOL 350 MG/ML 100 ML VIAL. IV ONE (06:45)
[2018-12-27] MEDS ORDERED: CONTRAST GIVEN. MC PRN (06:45)
--- NOTE | 2018-12-27 07:24 | RAD ---
DATE OF SERVICE: 12/27/2018 6:34 AM EXAM: CT pulmonary angiogram with intravenous contrast with multiplanar 2D reformatted images CLINICAL HISTORY: Right-sided chest pain, elevated d-dimer. TECHNIQUE: CT pulmonary angiogram was performed as axial CT images obtained through the chest during the administration of intravenous contrast. 3D and MIP reformations and post-processing reconstructions were performed and interpreted. Dose lowering technique(s) such as automated exposure control, iterative reconstruction, and mA and/or KV adjustment for patient size was utilized for this examination. CONTRAST: 100 ml of Isovue-370. COMPARISON: CT scan of the chest dated July 02, 2017. FINDINGS: No acute pulmonary embolism is identified. The heart is not enlarged. There are atherosclerotic calcifications involving the aorta and left coronary artery. No aortic aneurysm or dissection is seen. The lungs are clear. No pleural effusion or pneumothorax is seen. No hilar, mediastinal or axillary lymphadenopathy is identified. There are small calcified mediastinal and right hilar lymph nodes consistent with chronic sequela of remote granulomatous disease. There is fatty infiltration of the liver. There are mild degenerative changes involving the spine. IMPRESSION: 1. No CT evidence for acute pulmonary embolism or other active cardiopulmonary disease. 2. Fatty infiltration of the liver. Electronically signed by: Raymundo Trotter MD (12/27/2018 7:20 AM) [facility]
[2018-12-27 07:51] VITALS: BP 155/78
--- NOTE | 2018-12-27 09:11 | EKG ---
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
== END 2018-12-27 08:17 | disposition home or self-care (01) ==
LOC: ER 04:50
DX: K21.9 Gastro-esophageal reflux disease without esophagitis (principal); R07.89 Other chest pain; J45.909 Unspecified asthma, uncomplicated; F32.9 Major depressive disorder, single episode, unspecified; F17.210 Nicotine dependence, cigarettes, uncomplicated; E11.9 Type 2 diabetes mellitus without complications; Z90.89 Acquired absence of other organs; Z98.890 Other specified postprocedural states; Z79.82 Long term (current) use of aspirin; Z88.5 Allergy status to narcotic agent; Z91.02 Food additives allergy status
CPT/HCPCS: 36415; 71045; 71275; 80053; 83690; 83735; 83880; 84484; 85025; 85379; 85610; 93005; 99284; Q9967

== ENCOUNTER 2019-03-10 20:59 | Emergency (ER) | payer SELFPAY ==
[~2019-03-10] VITALS: Ht 165.1 cm; Wt 98.4 kg
[2019-03-10 21:23] VITALS: BP 174/105
[2019-03-10] MEDS ORDERED: INSU100I17 SQ (21:27)
[2019-03-10] MEDS ORDERED: INSU100I13 SQ (21:27)
[2019-03-10] MEDS ORDERED: LISI10TA2 PO (21:27)
--- NOTE | 2019-03-10 21:29 | PHYS DOC ---
Past Medical History Past Medical History: Asthma, Depression, Diabetes-Type II, GERD, Other Additional Past Medical Histor: gestational diabetes, obesity Past Surgical History: , Tonsillectomy, Other Additional Past Surgical Histo: x5 Alcohol Use: None Drug Use: None Adult General Chief Complaint Chief Complaint: HYPERGLYCEMIA HPI HPI 53-year-old female with history of type 2 diabetes insulin requiring presents secondary to elevated blood sugar. She states she is been out of her medication. She takes Lantus 20 mg at bedtime and NovoLog 10 mg twice daily. She hasn't had this for a couple of days. She is previously not had success with oral diabetic medication. She denies any nausea vomiting. She's not had any fever chills or sweats. She doesn't watch her diet particularly well she states. She is also not taking an JOANN inhibitor at this time.[] Review of Systems Review of Systems Constitutional: Denies fever or chills [] Eyes: Denies change in visual acuity, redness, or eye pain [] HENT: Denies nasal congestion or sore throat [] Respiratory: Denies cough or shortness of breath [] Cardiovascular: No additional information not addressed in HPI [] GI: Denies abdominal pain, nausea, vomiting, bloody stools or diarrhea [] : Denies dysuria or hematuria [] Musculoskeletal: Denies back pain or joint pain [] Integument: Denies rash or skin lesions [] Neurologic: Denies headache, focal weakness or sensory changes [] Endocrine: Reports polyuria and polydipsia[] All other systems were reviewed and found to be within normal limits, except as documented in this note. Current Medications Current Medications Current Medications Medications (Trade) Dose Ordered Sig/Juan Start Time Stop Time Status Last Admin Dose Admin Insulin Glargine (Lantus) 30 units 1X ONCE 03/10/19 21:30 03/10/19 21:31 UNV Allergies Allergies Allergies Coded Allergies Type Severity Reaction Last Updated Verified chocolate flavor Allergy Intermediate Hives 07/02/17 Yes lavender (Lavandula angustifolia) Allergy Intermediate Hives 07/02/17 Yes oxycodone Adverse Reaction Intermediate 12/06/15 No Physical Exam Physical Exam Constitutional: Well developed, well nourished, no acute distress, non-toxic appearance. [] HENT: Normocephalic, atraumatic, bilateral external ears normal, oropharynx moist, no oral exudates, nose normal. [] Eyes: PERRLA, EOMI, conjunctiva normal, no discharge. [] Neck: Normal range of motion, no tenderness, supple, no stridor. [] Cardiovascular:Heart rate regular rhythm, no murmur [] Lungs & Thorax: Bilateral breath sounds clear to auscultation [] Abdomen: Bowel sounds normal, soft, no tenderness, no masses, no pulsatile masses. [] Skin: Warm, dry, no erythema, no rash. [] Back: No tenderness, no CVA tenderness. [] Extremities: No tenderness, no cyanosis, no clubbing, ROM intact, no edema. [] Neurologic: Alert and oriented X 3, normal motor function, normal sensory function, no focal deficits noted. [] Psychologic: Affect normal, judgement normal, mood normal. [] EKG EKG [] Radiology/Procedures Radiology/Procedures [] Course & Med Decision Making Course & Med Decision Making Pertinent Labs and Imaging studies reviewed. (See chart for details) [ED course: Evaluation reveals a 53-year-old female in absolutely no distress. Her blood sugar was 410 here in the department. We gave her Lantus 30 units subcutaneous while she was here. I will provide her with her prescriptions as she readily admits she does not have a primary care physician and does not plan to seek one at this time.] Dragon Disclaimer Dragon Disclaimer This electronic medical record was generated, in whole or in part, using a voice recognition dictation system. Departure Departure Impression: Primary Impression: DM type 2 (diabetes mellitus, type 2) Additional Impression: Noncompliance with medications Disposition: 01 HOME, SELF-CARE Condition: STABLE Referrals: NO PCP (PCP) Patient Instructions: Diabetes Mellitus Autoantibody Panel, Diabetes and Sick Day Management, Diabetes and Standards of Medical Care, Diabetes, FAQs, Insulin Treatment in Diabetes Additional Instructions: He need to follow with a primary care physician. It is extremely important that she take good care of her blood sugars otherwise you can develop serious long- term complications. Return to the emergency department with any new or concerning symptoms Scripts Lisinopril (LISINOPRIL) 10 Mg Tablet 1 TAB PO DAILY, #90 TAB 1 Refill Prov: MATY GUTIERREZ DO 03/10/19 Insulin Aspart (NOVOLOG FLEXPEN) 100 Unit/1 Ml Insuln.pen 10 UNIT SQ BID for 30 Days, SYR 6 Refills Prov: MATY GUTIERREZ DO 03/10/19 Insulin Glargine,Hum.rec.anlog (LANTUS SOLOSTAR) 100 Unit/1 Ml Insuln.pen 20 UNIT SQ QHS, #30 ML 5 Refills Prov: MATY GUTIERREZ DO 03/10/19 Problem Qualifiers Primary Impression: DM type 2 (diabetes mellitus, type 2) Diabetes mellitus intermodal customer service insulin use: with intermodal customer service use Diabetes mellitus complication status: with unspecified complications Qualified Codes: E11.8 - Type 2 diabetes mellitus with unspecified complications; Z79.4 - halfway (current) use of insulin MATY GUTIERREZ DO Mar 10, 2019 21:29
[2019-03-10] MEDS ORDERED: INSULIN GLARGINE 300 UNITS/3 ML INSULN.PEN. SQ ONE (21:30)
== END 2019-03-10 22:33 | disposition home or self-care (01) ==
LOC: ER 20:59
DX: E11.65 Type 2 diabetes mellitus with hyperglycemia (principal); Z91.14 Patient's other noncompliance with medication regimen; R35.8 Other polyuria; R63.1 Polydipsia; Z79.4 Long term (current) use of insulin; J45.909 Unspecified asthma, uncomplicated; F32.9 Major depressive disorder, single episode, unspecified; K21.9 Gastro-esophageal reflux disease without esophagitis; E66.9 Obesity, unspecified; Z68.36 Body mass index [BMI] 36.0-36.9, adult; Z90.89 Acquired absence of other organs; Z98.890 Other specified postprocedural states; Z88.5 Allergy status to narcotic agent; Z91.02 Food additives allergy status
CPT/HCPCS: 82962; 96372; 99284; J1815; 99283

== ENCOUNTER 2020-02-22 11:08 | Emergency (ER) | payer SELFPAY ==
[~2020-02-22] VITALS: Ht 165.1 cm; Wt 99.0 kg
[~2020-02-22 11:08] MED LIST changes: -ALBU2.5V8 IH; +ALBU2.5V8 NEB; +CIPR500T94 PO; +LISI10TA2 PO; +PANT20TA2 PO; -PANT40TA3 PO; +PANT40TA77 PO; +PROVENTIL HFA6.7 GM IH
[2020-02-22 11:20] VITALS: BP 148/75
[2020-02-22 12:02] LABS: BASO % 1 % (0-3); EOS # 0.1 x10^3/uL (0.0-0.7); EOS % 2 % (0-3); HEMATOCRIT 37.3 % (36.0-47.0); HEMOGLOBIN 12.4 g/dL (12.0-15.5); LYMPH # 2.4 x10^3/uL (1.0-4.8); LYMPH % 50 % (24-48); MEAN CORPUSCULAR HEMOGLOBIN 27 pg (25-35); MEAN CORPUSCULAR HGB CONC 33 g/dL (31-37); MEAN CORPUSCULAR VOLUME 81 fL (79-100); MONO # 0.3 x10^3/uL (0.0-1.1); MONO % 6 % (0-9); NEUT # 1.9 x10^3/uL (1.8-7.7); NEUT % 41 % (31-73); PLATELET COUNT 255 x10^3/uL (140-400); RED BLOOD COUNT 4.61 x10^6/uL (3.50-5.40); WHITE BLOOD COUNT 4.7 x10^3/uL (4.0-11.0)
[2020-02-22 12:05] LABS: BILIRUBIN,URINE NEGATIVE (NEG); CLARITY,URINE CLEAR; COLOR,URINE YELLOW; NITRITE,URINE NEGATIVE (NEG); PROTEIN,URINE NEGATIVE (NEG-TRACE); UROBILINOGEN,URINE 0.2 mg/dL (0.2 mg/dL)
[2020-02-22 12:22] LABS: SQUAMOUS EPITHELIAL CELL,UR MOD /LPF
[2020-02-22 12:23] LABS: BACTERIA,URINE FEW /HPF (0-FEW); RBC,URINE 0 /HPF (0-2)
--- NOTE | 2020-02-22 12:53 | PHYS DOC ---
Past Medical History Past Medical History: Asthma, Depression, Diabetes-Type II, GERD, Other Additional Past Medical Histor: gestational diabetes, obesity Past Surgical History: , Tonsillectomy, Other Additional Past Surgical Histo: x5 Smoking Status: Current Every Day Smoker Alcohol Use: None Drug Use: None General Adult EDM: Chief Complaint: VAGINAL BLEEDING HPI: HPI: Patient is a 54 year old female with history of asthma, acid reflux, diabetes type 2, 8 para 5, with 4 miscarriages who presents the ED today c oncerned she is . Patient reports not having a menstrual cycle since December 02, 2019 but spotted on Thursday. She states she did 3 home tests which were positive. She is complaining of slight lower back pain and lower abdominal pain. Denies any urgency, frequency, dysuria. Review of Systems: Review of Systems: Constitutional: Denies fever or chills. [] Eyes: Denies change in visual acuity. [] HENT: Denies nasal congestion or sore throat. [] Respiratory: Denies cough or shortness of breath. [] Cardiovascular: Denies chest pain or edema. [] GI: Reports vaginal bleeding, abdominal pain. Reports concern for . Denies nausea, vomiting, bloody stools or diarrhea. [] : Denies dysuria. [] Musculoskeletal: Denies back pain or joint pain. [] Integument: Denies rash. [] Neurologic: Denies headache, focal weakness or sensory changes. [] Psychiatric: Denies depression or anxiety. [] Heart Score: Risk Factors: Risk Factors: DM, Current or recent (<one month) smoker, HTN, HLP, family history of CAD, obesity. Risk Scores: Score 0 - 3: 2.5% MACE over next 6 weeks - Discharge Home Score 4 - 6: 20.3% MACE over next 6 weeks - Admit for Clinical Observation Score 7 - 10: 72.7% MACE over next 6 weeks - Early Invasive Strategies Allergies: Allergies: Allergies Coded Allergies Type Severity Reaction Last Updated Verified chocolate flavor Allergy Intermediate Hives 07/02/17 Yes lavender (Lavandula angustifolia) Allergy Intermediate Hives 07/02/17 Yes oxycodone Adverse Reaction Intermediate 12/06/15 No Physical Exam: PE: Constitutional: Well developed, well nourished, no acute distress, non-toxic appearance. [] HENT: Normocephalic, atraumatic, bilateral external ears normal, oropharynx moist, no oral exudates, nose normal. [] Eyes: PERRLA, EOMI, conjunctiva normal, no discharge. [] Neck: Normal range of motion, no tenderness, supple, no stridor. [] Cardiovascular:Heart rate regular rhythm, no murmur [] Lungs & Thorax: Bilateral breath sounds clear to auscultation [] Abdomen: Bowel sounds normal, soft, no tenderness, no masses, no pulsatile masses. [] \ Skin: Warm, dry, no erythema, no rash. [] Back: No tenderness, no CVA tenderness. [] Extremities: No tenderness, no cyanosis, no clubbing, ROM intact, no edema. [] Neurologic: Alert and oriented X 3, normal motor function, normal sensory function, no focal deficits noted. [] Psychologic: Affect normal, judgement normal, mood normal. [] Current Patient Data: Labs: Laboratory Tests Test 02/22/20 10:50 02/22/20 11:35 02/22/20 11:43 Urine Collection Type Unknown Urine Color Yellow Urine Clarity Clear Urine pH 6.0 (<5.0-8.0) Urine Specific [place] >=1.030 (1.000-1.030) Urine Protein Negative mg/dL (NEG-TRACE) Urine Glucose (UA) >=1000 mg/dL (NEG) Urine Ketones (Stick) Negative mg/dL (NEG) Urine Blood Negative (NEG) Urine Nitrite Negative (NEG) Urine Bilirubin Negative (NEG) Urine Urobilinogen Dipstick 0.2 mg/dL (0.2 mg/dL) Urine Leukocyte Esterase Negative (NEG) Urine RBC 0 /HPF (0-2) Urine WBC 1-4 /HPF (0-4) Urine Squamous Epithelial Cells Mod /LPF Urine Bacteria Few /HPF (0-FEW) White Blood Count 4.7 x10^3/uL (4.0-11.0) Red Blood Count 4.61 x10^6/uL (3.50-5.40) Hemoglobin 12.4 g/dL (12.0-15.5) Hematocrit 37.3 % (36.0-47.0) Mean Corpuscular Volume 81 fL (79-100) Mean Corpuscular Hemoglobin 27 pg (25-35) Mean Corpuscular Hemoglobin Concent 33 g/dL (31-37) Red Cell Distribution Width 14.0 % (11.5-14.5) Platelet Count 255 x10^3/uL (140-400) Neutrophils (%) (Auto) 41 % (31-73) Lymphocytes (%) (Auto) 50 % (24-48) H Monocytes (%) (Auto) 6 % (0-9) Eosinophils (%) (Auto) 2 % (0-3) Basophils (%) (Auto) 1 % (0-3) Neutrophils # (Auto) 1.9 x10^3/uL (1.8-7.7) Lymphocytes # (Auto) 2.4 x10^3/uL (1.0-4.8) Monocytes # (Auto) 0.3 x10^3/uL (0.0-1.1) Eosinophils # (Auto) 0.1 x10^3/uL (0.0-0.7) Basophils # (Auto) 0.0 x10^3/uL (0.0-0.2) Maternal Serum HCG Beta Subunit 1 mIU/mL (0-5) POC Urine HCG, Qualitative Hcg negative (Negative) Laboratory Tests 02/22/20 11:35 Vital Signs: Vital Signs Date Time Temp Pulse Resp B/P (MAP) Pulse Ox O2 Delivery O2 Flow Rate FiO2 02/22/20 11:20 99.1 84 18 148/75 (99) 97 Room Air 99.1 EKG: EKG: [] Radiology/Procedures: Radiology/Procedures: [] Course & Med Decision Making: Course & Med Decision Making Pertinent Labs and Imaging studies reviewed. (See chart for details) This is a 54-year-old female patient presenting to the ED today concerned she could be . Her last menstrual cycle was November 24, 2019. She had spotting on Thursday. She is a 8 para 5 with 3 miscarriages Negative urine hCG, beta-hCG 1. Urine analysis negative for infection, CBC is with no acute findings. Considering her age at 54 she could be having premenopausal. Patient was discharged to home. Follow-up with an FORK LIFT TECHNICIAN. Jenise Disclaimer: Jenise Disclaimer: This electronic medical record was generated, in whole or in part, using a voice recognition dictation system. Departure Departure Impression: Primary Impression: Dysfunctional uterine bleeding Additional Impression: Perimenopause Disposition: HOME, SELF-CARE Condition: STABLE Referrals: NO PCP (PCP) WILIAM NEUMANN Jr, MD follow up in 1 week Patient Instructions: Uterine Bleeding, Dysfunctional Additional Instructions: You were evaluated in the emergency room, your urine test is negative, your beta hcg is 1 meaning you are not . Please follow-up with the provided FORK LIFT TECHNICIAN. You could be going through perimenopause which can cause irregular cycles. Come back to the ED at any point symptoms worsen. KRISTOPHER WARREN HEAT AND FROST INSULATOR February 22, 2020 12:53
== END 2020-02-22 13:02 | disposition home or self-care (01) ==
LOC: ER 11:08
DX: N93.8 Other specified abnormal uterine and vaginal bleeding (principal); Z78.0 Asymptomatic menopausal state; M54.5 Low back pain; R10.30 Lower abdominal pain, unspecified; J45.909 Unspecified asthma, uncomplicated; F32.9 Major depressive disorder, single episode, unspecified; E11.9 Type 2 diabetes mellitus without complications; K21.9 Gastro-esophageal reflux disease without esophagitis; F17.200 Nicotine dependence, unspecified, uncomplicated; E66.9 Obesity, unspecified; Z68.36 Body mass index [BMI] 36.0-36.9, adult; Z98.890 Other specified postprocedural states; Z88.8 Allergy status to other drugs, medicaments and biological substances; Z91.018 Allergy to other foods
CPT/HCPCS: 36415; 81001; 81025; 84702; 85025; 99283

== ENCOUNTER 2020-06-03 16:08 | Emergency (ER) | payer BC ==
[~2020-06-03] VITALS: Ht 167.6 cm; Wt 105.5 kg
--- NOTE | 2020-06-03 17:05 | PHYS DOC ---
Past Medical History Past Medical History: Asthma, Depression, Diabetes-Type II, GERD, Other Additional Past Medical Histor: gestational diabetes, obesity Past Surgical History: , Tonsillectomy, Other Additional Past Surgical Histo: x5 Smoking Status: Current Every Day Smoker Alcohol Use: None Drug Use: None General Adult EDM: Chief Complaint: ABDOMINAL PAIN HPI: HPI: Patient is a 54 year old female who presents with 1 week of yellow/white vaginal discharge without odor. Patient says she is also having intermittent cramping. She states she has not had a menstrual. Since November and milk she is going through the change. Patient denies any sexually transmitted disease concerns and states she has not had sexual intercourse in a very long time. She denies nausea, vomiting, diarrhea, fever, dysuria, back pain, dizziness, headache, chills, chest pain, cough, shortness of air. Abdomen is soft and nontender. Patient has a history of diabetes, depression, asthma, GERD, C- section x5, smoker. Patient currently has no pain. Review of Systems: Review of Systems: Constitutional: Denies fever or chills. [] Eyes: Denies change in visual acuity. [] HENT: Denies nasal congestion or sore throat. [] Respiratory: Denies cough or shortness of breath. [] Cardiovascular: Denies chest pain or edema. [] GI: Low mid cramping abdominal pain, denies nausea, vomiting, bloody stools or diarrhea. [] : Denies dysuria. Vaginal discharge [] Musculoskeletal: Denies back pain or joint pain. [] Integument: Denies rash. [] Neurologic: Denies headache, focal weakness or sensory changes. [] Endocrine: Denies polyuria or polydipsia. [] Lymphatic: Denies swollen glands. [] Psychiatric: Denies depression or anxiety. [] Heart Score: Risk Factors: Risk Factors: DM, Current or recent (<one month) smoker, HTN, HLP, family history of CAD, obesity. Risk Scores: Score 0 - 3: 2.5% MACE over next 6 weeks - Discharge Home Score 4 - 6: 20.3% MACE over next 6 weeks - Admit for Clinical Observation Score 7 - 10: 72.7% MACE over next 6 weeks - Early Invasive Strategies Allergies: Allergies: Allergies Coded Allergies Type Severity Reaction Last Updated Verified chocolate flavor Allergy Intermediate Hives 07/02/17 Yes lavender (Lavandula angustifolia) Allergy Intermediate Hives 07/02/17 Yes oxycodone Adverse Reaction Intermediate 12/06/15 No Physical Exam: PE: Constitutional: Well developed, well nourished, no acute distress, non-toxic appearance. [] HENT: Normocephalic, atraumatic, bilateral external ears normal, oropharynx mois t, no oral exudates, nose normal. [] Eyes: PERRLA, EOMI, conjunctiva normal, no discharge. [] Neck: Normal range of motion, no tenderness, supple, no stridor. [] Cardiovascular:Heart rate regular rhythm, no murmur [] Lungs & Thorax: Bilateral breath sounds clear to auscultation [] Abdomen: Bowel sounds normal, soft, no tenderness, no masses, no pulsatile masses. [] Skin: Warm, dry, no erythema, no rash. [] Back: No tenderness, no CVA tenderness. [] Extremities: No tenderness, no cyanosis, no clubbing, ROM intact, no edema. [] Neurologic: Alert and oriented X 3, normal motor function, normal sensory function, no focal deficits noted. [] Psychologic: Affect normal, judgement normal, mood normal. Normal physical exam [] EKG: EKG: [] Radiology/Procedures: Radiology/Procedures: [] Impression: [facility] [address] [place] [address] IMAGING REPORT Signed PATIENT: NILA GAINES ACCOUNT: [id number] : 1965 LOCATION: ER AGE: 54 SEX: F EXAM STATUS: REG ER ORD. PHYSICIAN: MILAN LOMELI APRN REASON: low mid cramping PROCEDURE: PELVIS W/TV Exam: Ultrasound pelvis Indication: Low mid cramping Technique: Real-time grayscale and color Doppler images of the pelvis were obtained by the department physics technical officer. Comparisons: None FINDINGS: Uterus measures 11.7 x 6.1 x 5.7 cm. Endometrium measures 10 mm in thickness. Right and left ovary are not visualized. There is trace free fluid in the pelvis. IMPRESSION: 1. Normal sonographic appearance of the uterus. 2. Ovaries are not visualized. 3. Trace free fluid in the pelvis. Electronically signed by: Eimly Jeffers MD (06/03/2020 7:31 PM) [id number] DICTATED and SIGNED BY: EMILY JEFFERS MD DATE: 06/03/201930 Course & Med Decision Making: Course & Med Decision Making Pertinent Labs and Imaging studies reviewed. (See chart for details) See HPI. Skin pink warm and dry. Alert and oriented x4. Ambulatory with a steady gait. No extremity edema. During pelvic exam there is white, yellow moderate amount discharge. No cervical motion tenderness. Abdomen is soft and nontender. Vaginal mucosa normal. Urinalysis shows no infection. Blood work is unremarkable. Patient will be given metronidazole for her bacterial vaginosis. She is to follow-up with her primary care provider. [] Dragon Disclaimer: Dragon Disclaimer: This electronic medical record was generated, in whole or in part, using a voice recognition dictation system. Departure Departure Impression: Primary Impression: Bacterial vaginosis Disposition: 01 HOME, SELF-CARE Condition: STABLE Referrals: NO PCP (PCP) WILIAM NEUMANN Jr, MD Patient Instructions: Bacterial Vaginosis, [id number] Additional Instructions: Follow-up with a plate embosser or your primary care provider. Take medication as prescribed and with food. Do not drink alcohol with this medication as it will make you sick to her stomach. Scripts Metronidazole (METRONIDAZOLE) 500 Mg Tablet 1 TAB PO BID for 7 Days, #14 TAB 0 Refills Prov: MILAN LOMELI APRN 06/03/20 Justicifation of Admission Dx: Justifications for Admission: Justification of Admission Dx: N/A MILAN LOMELI APRN Jun 03, 2020 17:05
[2020-06-03 17:11] LABS: BILIRUBIN,URINE NEGATIVE (NEG); CLARITY,URINE CLEAR; COLOR,URINE YELLOW; NITRITE,URINE NEGATIVE (NEG); PH,URINE 5.5 (<5.0-8.0); PROTEIN,URINE 30 mg/dL (NEG-TRACE); UROBILINOGEN,URINE 0.2 mg/dL (0.2 mg/dL)
[2020-06-03 17:11] LABS: BASO # 0.1 x10^3/uL (0.0-0.2); BASO % 1 % (0-3); EOS # 0.1 x10^3/uL (0.0-0.7); EOS % 3 % (0-3); HEMATOCRIT 39.4 % (36.0-47.0); HEMOGLOBIN 13.1 g/dL (12.0-15.5); LYMPH # 2.9 x10^3/uL (1.0-4.8); LYMPH % 55 % (24-48); MEAN CORPUSCULAR HEMOGLOBIN 27 pg (25-35); MEAN CORPUSCULAR HGB CONC 33 g/dL (31-37); MEAN CORPUSCULAR VOLUME 81 fL (79-100); MONO # 0.3 x10^3/uL (0.0-1.1); MONO % 5 % (0-9); NEUT # 1.9 x10^3/uL (1.8-7.7); NEUT % 36 % (31-73); PLATELET COUNT 277 x10^3/uL (140-400); RED BLOOD COUNT 4.89 x10^6/uL (3.50-5.40); RED CELL DISTRIBUTION WIDTH 14.1 % (11.5-14.5); WHITE BLOOD COUNT 5.2 x10^3/uL (4.0-11.0)
[2020-06-03 17:16] LABS: SQUAMOUS EPITHELIAL CELL,UR MANY /LPF
[2020-06-03 17:17] LABS: BACTERIA,URINE FEW /HPF (0-FEW); RBC,URINE RARE /HPF (0-2); U PREG PATIENT NEGATIVE (NEG)
[2020-06-03 17:21] LABS: CALCIUM 9.2 mg/dL (8.5-10.1); CREATININE 1.1 mg/dL (0.6-1.0); GFR 63.1; POTASSIUM 4.1 mmol/L (3.5-5.1)
[2020-06-03 17:28] LABS: ALBUMIN 3.2 g/dL (3.4-5.0); ALBUMIN/GLOBULIN RATIO 0.7 (1.0-1.7); TOTAL BILIRUBIN 0.2 mg/dL (0.2-1.0)
[2020-06-03 19:33] VITALS: BP 157/74
--- NOTE | 2020-06-03 19:34 | RAD ---
Exam: Ultrasound pelvis Indication: Low mid cramping Technique: Real-time grayscale and color Doppler images of the pelvis were obtained by the department lecturer in computer science. Comparisons: None FINDINGS: Uterus measures 11.7 x 6.1 x 5.7 cm. Endometrium measures 10 mm in thickness. Right and left ovary are not visualized. There is trace free fluid in the pelvis. IMPRESSION: 1. Normal sonographic appearance of the uterus. 2. Ovaries are not visualized. 3. Trace free fluid in the pelvis. Electronically signed by: Emily Conklin MD (06/03/2020 7:31 PM) [id number]
[2020-06-03] MEDS ORDERED: METR-34 PO (19:38)
[2020-06-05 21:08] LABS: GC PROBE Negative (Negative)
== END 2020-06-03 19:50 | disposition home or self-care (01) ==
LOC: ER 16:08
DX: N76.0 Acute vaginitis (principal); R10.30 Lower abdominal pain, unspecified; J45.909 Unspecified asthma, uncomplicated; F32.9 Major depressive disorder, single episode, unspecified; E11.9 Type 2 diabetes mellitus without complications; K21.9 Gastro-esophageal reflux disease without esophagitis; F17.200 Nicotine dependence, unspecified, uncomplicated; E66.8 Other obesity; Z68.37 Body mass index [BMI] 37.0-37.9, adult; Z90.89 Acquired absence of other organs; Z98.890 Other specified postprocedural states; Z91.018 Allergy to other foods; Z88.8 Allergy status to other drugs, medicaments and biological substances
CPT/HCPCS: 76830; 76856; 80053; 81001; 81025; 83690; 85025; 87491; 87591; 99285; Q0111

== ENCOUNTER 2020-07-19 14:38 | Emergency (ER) | payer SELFPAY ==
[~2020-07-19] VITALS: Ht 165.1 cm; Wt 100.0 kg
[~2020-07-19 14:38] MED LIST changes: +METR-34 PO
[2020-07-19] MEDS ORDERED: IV NORMAL SALINE 1000ML BAG 1,000 ML IV ONE (15:00)
[2020-07-19 15:07] LABS: BILIRUBIN,URINE NEGATIVE (NEG); CLARITY,URINE CLEAR; COLOR,URINE YELLOW; NITRITE,URINE NEGATIVE (NEG); PH,URINE 5.5 (<5.0-8.0); PROTEIN,URINE 30 mg/dL (NEG-TRACE); UROBILINOGEN,URINE 0.2 mg/dL (0.2 mg/dL)
[2020-07-19 15:16] LABS: BACTERIA,URINE 0 /HPF (0-FEW); RBC,URINE 0 /HPF (0-2); WBC,URINE OCC /HPF (0-4)
[2020-07-19 15:17] LABS: BASO # 0.1 x10^3/uL (0.0-0.2); BASO % 2 % (0-3); EOS # 0.1 x10^3/uL (0.0-0.7); EOS % 1 % (0-3); HEMATOCRIT 39.9 % (36.0-47.0); HEMOGLOBIN 13.4 g/dL (12.0-15.5); LYMPH # 2.2 x10^3/uL (1.0-4.8); LYMPH % 45 % (24-48); MEAN CORPUSCULAR HEMOGLOBIN 27 pg (25-35); MEAN CORPUSCULAR HGB CONC 34 g/dL (31-37); MEAN CORPUSCULAR VOLUME 80 fL (79-100); MONO # 0.3 x10^3/uL (0.0-1.1); MONO % 5 % (0-9); NEUT # 2.3 x10^3/uL (1.8-7.7); NEUT % 47 % (31-73); PLATELET COUNT 251 x10^3/uL (140-400); RED BLOOD COUNT 4.98 x10^6/uL (3.50-5.40); WHITE BLOOD COUNT 4.9 x10^3/uL (4.0-11.0)
[2020-07-19 15:21] VITALS: BP 163/77
[2020-07-19 15:24] LABS: CALCIUM 9.3 mg/dL (8.5-10.1); CREATININE 1.2 mg/dL (0.6-1.0); GFR 57.1; POTASSIUM 4.1 mmol/L (3.5-5.1)
[2020-07-19 15:30] LABS: ALBUMIN 3.3 g/dL (3.4-5.0); ALBUMIN/GLOBULIN RATIO 0.7 (1.0-1.7); MAGNESIUM 1.8 mg/dL (1.8-2.4); TOTAL BILIRUBIN 0.3 mg/dL (0.2-1.0); TOTAL PROTEIN 8.2 g/dL (6.4-8.2)
[2020-07-19] MEDS ORDERED: INSU100C4 SQ (15:54)
[2020-07-19] MEDS ORDERED: INSU100I13 SQ (15:54)
--- NOTE | 2020-07-19 15:54 | PHYS DOC ---
Past Medical History Past Medical History: Asthma, Depression, Diabetes-Type II, GERD, Other Additional Past Medical Histor: gestational diabetes, obesity Past Surgical History: , Tonsillectomy, Other Additional Past Surgical Histo: x5 Smoking Status: Current Every Day Smoker Alcohol Use: None Drug Use: None General Adult EDM: Chief Complaint: HYPERGLYCEMIA HPI: HPI: Patient is a 54-year-old female with history diabetic, presented to ER due to elevated blood sugar. Patient is noncompliant with her medication. She does not have a family physician. Patient ate breakfast today, around noon before lunchtime she feels like her blood sugar was high so she checked her blood sugar and it was 575. Patient gave herself 15units NovoLog. patient says she used the last unit of her NovoLog today. Patient is out of her insulin. Patient denies abdominal pain, no cough, no fever, no chest pain. Review of Systems: Review of Systems: Constitutional: Denies fever or chills. [] Eyes: Denies change in visual acuity. [] HENT: Denies nasal congestion or sore throat. [] Respiratory: Denies cough or shortness of breath. [] Cardiovascular: Denies chest pain or edema. [] GI: Denies abdominal pain, nausea, vomiting, bloody stools or diarrhea. [] : Denies dysuria. [] Musculoskeletal: Denies back pain or joint pain. [] Integument: Denies rash. [] Neurologic: Denies headache, focal weakness or sensory changes. [] Endocrine: Denies polyuria or polydipsia. [] Lymphatic: Denies swollen glands. [] Psychiatric: Denies depression or anxiety. [] Heart Score: Risk Factors: Risk Factors: DM, Current or recent (<one month) smoker, HTN, HLP, family history of CAD, obesity. Risk Scores: Score 0 - 3: 2.5% MACE over next 6 weeks - Discharge Home Score 4 - 6: 20.3% MACE over next 6 weeks - Admit for Clinical Observation Score 7 - 10: 72.7% MACE over next 6 weeks - Early Invasive Strategies Current Medications: Current Medications Medications (Trade) Dose Ordered Sig/Juan Start Time Stop Time Status Last Admin Dose Admin Sodium Chloride 1,000 ml @ 1,000 mls/hr 1X ONCE 10/15/20 15:00 07/19/20:59 07/19/20 15:00 1,000 MLS/HR Allergies: Allergies: Allergies Coded Allergies Type Severity Reaction Last Updated Verified chocolate flavor Allergy Intermediate Hives 07/02/17 Yes lavender (Lavandula angustifolia) Allergy Intermediate Hives 07/02/17 Yes oxycodone Adverse Reaction Intermediate 12/06/15 No Physical Exam: PE: Constitutional: Well developed, well nourished, no acute distress, non-toxic appearance. [] HENT: Normocephalic, atraumatic, bilateral external ears normal, oropharynx moist, no oral exudates, nose normal. [] Eyes: PERRLA, EOMI, conjunctiva normal, no discharge. [] Neck: Normal range of motion, no tenderness, supple, no stridor. [] Cardiovascular:Heart rate regular rhythm, no murmur [] Lungs & Thorax: Bilateral breath sounds clear to auscultation [] Abdomen: Bowel sounds normal, soft, no tenderness, no masses, no pulsatile masses. [] Skin: Warm, dry, no erythema, no rash. [] Back: No tenderness, no CVA tenderness. [] Extremities: No tenderness, no cyanosis, no clubbing, ROM intact, no edema. [] Neurologic: Alert and oriented X 3, normal motor function, normal sensory function, no focal deficits noted. [] Psychologic: Affect normal, judgement normal, mood normal. [] Current Patient Data: Labs: Laboratory Tests Test 07/19/20 14:52 07/19/20 14:55 07/19/20 15:03 07/19/20 15:10 Glucose (Fingerstick) 357 mg/dL (70-99) H Urine Collection Type Unknown Urine Color Yellow Urine Clarity Clear Urine pH 5.5 (<5.0-8.0) Urine Specific [place] >=1.030 (1.000-1.030) Urine Protein 30 mg/dL (NEG-TRACE) Urine Glucose (UA) >=1000 mg/dL (NEG) Urine Ketones (Stick) Negative mg/dL (NEG) Urine Blood Negative (NEG) Urine Nitrite Negative (NEG) Urine Bilirubin Negative (NEG) Urine Urobilinogen Dipstick 0.2 mg/dL (0.2 mg/dL) Urine Leukocyte Esterase Negative (NEG) Urine RBC 0 /HPF (0-2) Urine WBC Occ /HPF (0-4) Urine Squamous Epithelial Cells Mod /LPF Urine Bacteria 0 /HPF (0-FEW) Urine Mucus Slight /LPF POC Urine HCG, Qualitative Hcg negative (Negative) White Blood Count 4.9 x10^3/uL (4.0-11.0) Red Blood Count 4.98 x10^6/uL (3.50-5.40) Hemoglobin 13.4 g/dL (12.0-15.5) Hematocrit 39.9 % (36.0-47.0) Mean Corpuscular Volume 80 fL (79-100) Mean Corpuscular Hemoglobin 27 pg (25-35) Mean Corpuscular Hemoglobin Concent 34 g/dL (31-37) Red Cell Distribution Width 14.0 % (11.5-14.5) Platelet Count 251 x10^3/uL (140-400) Neutrophils (%) (Auto) 47 % (31-73) Lymphocytes (%) (Auto) 45 % (24-48) Monocytes (%) (Auto) 5 % (0-9) Eosinophils (%) (Auto) 1 % (0-3) Basophils (%) (Auto) 2 % (0-3) Neutrophils # (Auto) 2.3 x10^3/uL (1.8-7.7) Lymphocytes # (Auto) 2.2 x10^3/uL (1.0-4.8) Monocytes # (Auto) 0.3 x10^3/uL (0.0-1.1) Eosinophils # (Auto) 0.1 x10^3/uL (0.0-0.7) Basophils # (Auto) 0.1 x10^3/uL (0.0-0.2) Sodium Level 132 mmol/L (136-145) L Potassium Level 4.1 mmol/L (3.5-5.1) Chloride Level 96 mmol/L (98-107) L Carbon Dioxide Level 27 mmol/L (21-32) Anion Gap 9 (6-14) Blood Urea Nitrogen 18 mg/dL (7-20) Creatinine 1.2 mg/dL (0.6-1.0) H Estimated GFR (Cockcroft-Gault) 57.1 BUN/Creatinine Ratio 15 (6-20) Glucose Level 362 mg/dL (70-99) H Calcium Level 9.3 mg/dL (8.5-10.1) Magnesium Level 1.8 mg/dL (1.8-2.4) Total Bilirubin 0.3 mg/dL (0.2-1.0) Aspartate Amino Transferase (AST) 21 U/L (15-37) Alanine Aminotransferase (ALT) 36 U/L (14-59) Alkaline Phosphatase 87 U/L (46-116) Total Protein 8.2 g/dL (6.4-8.2) Albumin 3.3 g/dL (3.4-5.0) L Albumin/Globulin Ratio 0.7 (1.0-1.7) L Acetone Level Neg (NEG) Laboratory Tests 07/19/20 15:10 Laboratory Tests 07/19/20 15:10 Vital Signs: Vital Signs Date Time Temp Pulse Resp B/P (MAP) Pulse Ox O2 Delivery O2 Flow Rate FiO2 07/19/20 15:21 97.4 86 16 163/77 (105) 96 Room Air 97.4 EKG: EKG: [] Radiology/Procedures: Radiology/Procedures: [] Course & Med Decision Making: Course & Med Decision Making Pertinent Labs and Imaging studies reviewed. (See chart for details) Patient is a 54-year-old female with history diabetic, presented to ER due to elevated blood sugar. Patient is noncompliant with her medication. She does not have a family physician. Patient says she used the last unit of her NovoLog today. Patient is out of her insulin. Her blood sugar was around 350 here, no DKA. Patient will be discharged home with prescription for her NovoLog and Lantus, advised that she need to find a family physician. Patient is amenable to plan of care Dragon Disclaimer: Jenise Disclaimer: This electronic medical record was generated, in whole or in part, using a voice recognition dictation system. Departure Departure Impression: Primary Impression: Hyperglycemia Disposition: 01 DC HOME SELF CARE/HOMELESS Condition: IMPROVED Referrals: NO PCP (PCP) please follow up with your family physician on Thursday for reevaluation. Patient Instructions: Hyperglycemia Additional Instructions: Thank you for visiting our Emergency Department. We appreciate you trusting us with your care. If any additional problems come up don't hesitate to return to visit us. Please follow up with your primary care provider so they can plan additional care if needed and know about the problem that you had. If symptoms worsen come back to the Emergency Department. Any concerning symptoms that start such as chest pain, shortness of air, weakness or numbness on one side of the body, running high fevers or any other concerning symptoms return to the ER. Scripts Insulin Aspart (NOVOLOG) 100 Unit/1 Ml Cartridge 15 UNIT SQ TIDWMEALS for DM for 30 Days, EACH Prov: EDMUND PETERSON DO 07/19/20 Insulin Glargine,Hum.rec.anlog (LANTUS SOLOSTAR) 100 Unit/1 Ml Insuln.pen 20 UNIT SQ QHS for dm for 30 Days, ML 0 Refills Prov: EDMUND PETERSON DO 07/19/20 EDMUND PETERSON DO Jul 19, 2020 15:54
== END 2020-07-19 16:18 | disposition home or self-care (01) ==
LOC: ER 14:38
DX: E11.65 Type 2 diabetes mellitus with hyperglycemia (principal); J45.909 Unspecified asthma, uncomplicated; F32.9 Major depressive disorder, single episode, unspecified; K21.9 Gastro-esophageal reflux disease without esophagitis; F17.200 Nicotine dependence, unspecified, uncomplicated; E66.9 Obesity, unspecified; Z68.36 Body mass index [BMI] 36.0-36.9, adult; Z98.890 Other specified postprocedural states; Z91.018 Allergy to other foods; Z88.8 Allergy status to other drugs, medicaments and biological substances
CPT/HCPCS: 36415; 80053; 81001; 81025; 82010; 82962; 83735; 85025; 96360; 99283; J7030

== ENCOUNTER 2020-09-08 11:07 | Emergency (ER) | payer SELFPAY ==
[~2020-09-08] VITALS: Ht 165.1 cm; Wt 100.0 kg
[2020-09-08] MEDS ORDERED: IPRATRPIUM/ALBUTEROL 0.5/2.5MG 3 ML NEBU. NEB ONE (11:45)
[2020-09-08] MEDS ORDERED: predniSONE 10 MG TABLET PO ONE (11:45)
--- NOTE | 2020-09-08 11:59 | PHYS DOC ---
Past Medical History Past Medical History: Asthma, Depression, Diabetes-Type II, GERD, Other Additional Past Medical Histor: gestational diabetes, obesity Past Surgical History: , Tonsillectomy, Other Additional Past Surgical Histo: x5 Smoking Status: Current Every Day Smoker Additional Information: PT STATES SHE "QUIT" THREE DAYS AGO. Alcohol Use: None Drug Use: None General Adult EDM: Chief Complaint: ASTHMA HPI: HPI: Patient is a 54 year old female with history of asthma, diabetes type 2, acid reflux, depression, who presents to the ED today complaining of asthma symptoms including shortness of breath, coughing, chest tightness rated a 10 out of 10 as well as pain to her chest diffusely, rated a 10 out of 10 that she describes as her asthma symptoms for 3 days. Patient states symptoms are worse when she is outside. Denies anything specifically relieving her symptoms. She states she ran out of her inhaler a while ago. Denies any fever COVID-19 concerns. She is refusing any work-up. Review of Systems: Review of Systems: Constitutional: Denies fever or chills. [] Eyes: Denies change in visual acuity. [] HENT: Denies nasal congestion or sore throat. [] Respiratory: Reports cough and shortness of breath. [] Cardiovascular: Reports chest pain and chest tightness GI: Denies abdominal pain, nausea, vomiting, bloody stools or diarrhea. [] : Denies dysuria. [] Musculoskeletal: Denies back pain or joint pain. [] Integument: Denies rash. [] Neurologic: Denies headache, focal weakness or sensory changes. [] Psychiatric: Denies depression or anxiety. [] Heart Score: HEART Score for Chest Pain: HEART Score for Chest Pain Response (Comments) Value History Slighlty/Non-Suspicious 0 ECG Normal 0 Age >45 - < 65 1 Risk Factors 1 or 2 Risk Factors 1 Total 2 Risk Factors: Risk Factors: DM, Current or recent (<one month) smoker, HTN, HLP, family history of CAD, obesity. Risk Scores: Score 0 - 3: 2.5% MACE over next 6 weeks - Discharge Home Score 4 - 6: 20.3% MACE over next 6 weeks - Admit for Clinical Observation Score 7 - 10: 72.7% MACE over next 6 weeks - Early Invasive Strategies Current Medications: Current Medications Medications (Trade) Dose Ordered Sig/Juan Start Time Stop Time Status Last Admin Dose Admin Albuterol/ Ipratropium (Duoneb) 3 ml 1X ONCE 09/08/20 11:45 09/08/20 11:46 DC 09/08/20 11:52 3 ML Prednisone (Prednisone) 50 mg 1X ONCE 09/08/20 11:45 09/08/20 11:46 DC Allergies: Allergies: Allergies Coded Allergies Type Severity Reaction Last Updated Verified chocolate flavor Allergy Intermediate Hives 07/02/17 Yes lavender (Lavandula angustifolia) Allergy Intermediate Hives 07/02/17 Yes oxycodone Adverse Reaction Intermediate 12/06/15 No Physical Exam: PE: Constitutional: Well developed, well nourished, no acute distress, non-toxic appearance. [] HENT: Normocephalic, atraumatic, bilateral external ears normal, oropharynx moist, no oral exudates, nose normal. [] Eyes: PERRLA, EOMI, conjunctiva normal, no discharge. [] Neck: Normal range of motion, no tenderness, supple, no stridor. [] Cardiovascular:Heart rate regular rhythm, no murmur [] Lungs & Thorax: Diffuse wheezing throughout her lung bases Abdomen: Bowel sounds normal, soft, no tenderness, no masses, no pulsatile masses. [] Skin: Warm, dry, no erythema, no rash. [] Back: No tenderness, no CVA tenderness. [] Extremities: No tenderness, no cyanosis, no clubbing, ROM intact, no edema. [] Neurologic: Alert and oriented X 3, normal motor function, normal sensory function, no focal deficits noted. [] Psychologic: Affect normal, judgement normal, mood normal. [] Current Patient Data: Vital Signs: Vital Signs Date Time Temp Pulse Resp B/P (MAP) Pulse Ox O2 Delivery O2 Flow Rate FiO2 09/08/20 11:20 98.2 93 24 167/93 (117) 100 Room Air 98.2 EKG: EK interpreted by Dr. Bonilla sinus rhythm HR 79 no STEMI[] Radiology/Procedures: Radiology/Procedures: []PROCEDURE: CHEST PA & LATERAL EXAM: CHEST PA LATERAL 09/08/2020 11:34 AM CLINICAL INDICATION: Shortness of breath, history of asthma COMPARISON: Chest radiograph 05/04/2019 TECHNIQUE: PA and lateral views of the chest FINDINGS: The heart and mediastinum are normal. Lungs are well-expanded and clear. No consolidation, pleural effusion, or pneumothorax. Pulmonary vascularity is normal. The thoracic skeleton is intact. IMPRESSION: Normal chest radiograph. Electronically signed by: Danisha Viera MD (09/08/2020 11:59 AM) [id number] DICTATED and SIGNED BY: DANISHA VIERA MD DATE: 09/08/20 [id number] 0 Course & Med Decision Making: Course & Med Decision Making Pertinent Labs and Imaging studies reviewed. (See chart for details) This is a 54-year-old female patient presenting to the ED today with cough, shortness of breath, chest tightness/pain, symptoms began 3 days ago. Has history of asthma. Was wheezing on arrival to the ED. Refused any work-up related to the chest pain stating this is her typical asthma presentation. O2 sats above 98% on room air. She is afebrile. She was given a DuoNeb treatment, and prednisone. Chest x-ray interpreted by radiologist as negative for any acute findings. Patient feeling better after DuoNeb treatment and prednisone. Discharge to home with albuterol inhaler, prednisone. Encouraged to follow-up with the PCP. Provided return precautions. Jenise Disclaimer: Jenise Disclaimer: This electronic medical record was generated, in whole or in part, using a voice recognition dictation system. Departure Departure Impression: Primary Impression: Asthma exacerbation Qualified Codes: J45.21 - Mild intermittent asthma with (acute) exacerbation Disposition: 01 MS HOME SELF CARE/HOMELESS Condition: STABLE Referrals: NO PCP (PCP) follow up with your doctor next week Patient Instructions: Asthma, Adult Additional Instructions: You were evaluated in the emergency room for asthma exacerbation. Use the prescribed medications as ordered. Follow-up with your doctor next week. Come back to the ED at any point symptoms worsen Scripts Albuterol Sulfate (Proair Hfa) 8.5 Gm Hfa.aer.ad 2 PUFF IH PRN Q4-6HRS PRN for wheezing for 21 Days, #1 INHALER 1 Refill Prov: MUTUNGA,KRISTOPHER MACHINE [employer]PERATOR [employer] 09/08/20 Prednisone (PREDNISONE) 50 Mg Tablet 1 TAB PO DAILY, #5 TAB Prov: MUTUNGA,KRISTOPHER MACHINE OPERATOR [employer] 09/08/20 MUTUNGA,KRISTOPHER MACHINE OPERATOR [employer]TER Sep 08, 2020 11:59
--- NOTE | 2020-09-08 12:02 | RAD ---
EXAM: CHEST PA LATERAL 09/08/2020 11:34 AM CLINICAL INDICATION: Shortness of breath, history of asthma COMPARISON: Chest radiograph 05/04/2019 TECHNIQUE: PA and lateral views of the chest FINDINGS: The heart and mediastinum are normal. Lungs are well-expanded and clear. No consolidation, pleural effusion, or pneumothorax. Pulmonary vascularity is normal. The thoracic skeleton is intact. IMPRESSION: Normal chest radiograph. Electronically signed by: Danisha Viera MD (09/08/2020 11:59 AM) [id number]
[2020-09-08] MEDS ORDERED: ALBU2.5V8 IH (12:14)
[2020-09-08] MEDS ORDERED: PRED50TA PO (12:14)
[2020-09-08 12:44] VITALS: BP 153/74
== END 2020-09-08 12:45 | disposition home or self-care (01) ==
LOC: ER 11:07
DX: J45.21 Mild intermittent asthma with (acute) exacerbation (principal); J45.909 Unspecified asthma, uncomplicated; F32.9 Major depressive disorder, single episode, unspecified; E11.9 Type 2 diabetes mellitus without complications; K21.9 Gastro-esophageal reflux disease without esophagitis; F17.200 Nicotine dependence, unspecified, uncomplicated; R05 Cough; Z98.890 Other specified postprocedural states; Z91.018 Allergy to other foods; Z88.8 Allergy status to other drugs, medicaments and biological substances
CPT/HCPCS: 71046; 94640; 99283; J7512